=== PATIENT | female | born 1960 | race Native Hawaiian/Other Pacific Islander ===

== ENCOUNTER → 2020-09-01 07:49 | Outpatient (BNVA) | payer OTHER, SELFPAY | PROVIDERS: PCP Internal Medicine; Referring Provider Internal Medicine; Visit Provider Advanced Practice Midwife | DX: Z76.89 Persons encountering health services in other specified circumstances (principal) ==

== ENCOUNTER 2020-11-04 09:02 | Outpatient (REF) | payer OTHER, SELFPAY ==
[2020-11-04 09:59] LABS: MANUAL DIFF FLAG NO
[2020-11-04 10:05] LABS: Basophils Percent Auto 0.4 % (0-2); Eosinophils Absolute Auto 0.1 X10*3/uL (0.0-0.4); Eosinophils Percent Auto 1.8 % (0-4); Hematocrit 43.1 % (37-47); Hemoglobin 14.1 g/dl (12.0-16.0); Imm Gran Abs Auto 0.02 X10*3/uL (0.00-0.03); Imm Gran Pct Auto 0.3 % (0.0-0.4); Lymphocytes Percent Auto 27.7 % (20-40); Mean Corpuscular HGB Conc 32.7 g/dl (31.0-35.0); Mean Corpuscular Hemoglobin 30.3 pg (27.0-33.0); Mean Corpuscular Volume 92.5 fL (80-98); Mean Platelet Volume 9.8 fL (9.4-12.3); Monocytes Absolute Auto 0.6 X10*3/uL (0.1-1.2); Monocytes Percent Auto 8.2 % (2-11); Neutrophils Absolute Auto 4.4 X10*3/uL (2.0-8.3); Neutrophils Percent Auto 61.6 % (45-73); Platelet Count 287 X10*3/uL (160-400); Red Blood Count 4.66 X10*6/uL (4.20-5.50); Red Cell Distribution Width 13.1 % (11.0-16.0); White Blood Count 7.1 X10*3/uL (4.8-10.8)
[2020-11-04 10:30] LABS: Alanine Aminotransferase 16 U/L (0-31); Albumin Level 4.2 g/dL (3.5-5.0); Alkaline Phosphatase 97 U/L (39-117); Anion Gap 12 (12-20); Aspartate Amino Transferase 22 U/L (5-31); Bilirubin Total 0.4 mg/dL (0.0-1.0); Blood Urea Nitrogen 16 mg/dL (9-16); C Reactive Protein 0.93 mg/dL (< or = 0.50); Calcium 9.6 mg/dL (8.4-10.2); Carbon Dioxide 30 mmol/L (22-29); Chloride 102 mmol/L (96-108); Estimated Glomerular Filt Rate > 60; Glucose Random 92 mg/dL (60-115); Potassium 4.3 mmol/l (3.3-5.1); Sodium 140 mmol/L (135-145); Total Protein 7.6 g/dL (6.5-8.0)
== END 2020-11-04 09:03 | disposition home or self-care (01) ==
LOC: HO.LAB 09:02
PROVIDERS: PCP Internal Medicine; Visit Provider Student in an Organized Health Care Education/Training Program
DX: M06.09 Rheumatoid arthritis without rheumatoid factor, multiple sites (principal)
CPT/HCPCS: 36415; 80053; 85025; 86140

== ENCOUNTER 2020-11-12 08:27 | Outpatient (REF) | payer OTHER, SELFPAY ==
--- NOTE | 2020-11-12 08:34 | XR_ITS ---
EXAMINATION: XR KNEE, LEFT CLINICAL INFORMATION: Left knee pain COMPARISON: None TECHNIQUE: Four views of the left knee. FINDINGS: There is no evidence of acute fracture or dislocation of the left knee. No left knee effusion is seen. Medial and lateral joint spaces are maintained. There is some mild spurring about the patellofemoral joint with some narrowing of the lateral facet space. XR/XR knee LT 2V IMPRESSION: Degenerative change lateral patellofemoral joint. No acute fracture or effusion.
[2020-11-12 10:50] LABS: Cholesterol 235 mg/dL; HDL Cholesterol 55 mg/dL; LDL Cholesterol Calculated 154 mg/dl; Triglycerides 133 mg/dL
== END 2020-11-12 08:28 | disposition home or self-care (01) ==
LOC: HO.LAB 08:27
PROVIDERS: PCP Internal Medicine; Visit Provider Internal Medicine
DX: M25.562 Pain in left knee (principal); E78.00 Pure hypercholesterolemia, unspecified
CPT/HCPCS: 73560; 80061

== ENCOUNTER 2020-11-19 11:24 | Outpatient (REF) | payer OTHER, SELFPAY | END 2020-11-19 11:25 | disposition home or self-care (01) | LOC: HO.LAB 11:24 | PROVIDERS: PCP Internal Medicine; Visit Provider Internal Medicine | DX: Z20.828 Contact with and (suspected) exposure to other viral communicable diseases (principal) | CPT/HCPCS: C9803; U0003 ==

== ENCOUNTER 2020-12-07 15:19 | Emergency (ER) | payer OTHER, SELFPAY ==
--- NOTE | 2020-12-07 | XR_ITS ---
EXAMINATION: XR CHEST CLINICAL INFORMATION: Chest pain COMPARISON: 03/14/2018 TECHNIQUE: 2 views of the chest were obtained. FINDINGS: The lungs are well expanded. There is no focal consolidation, edema, or effusion. No pneumothorax. The cardiomediastinal silhouette is within normal limits. No acute osseous abnormality. XR/XR chest 2V IMPRESSION: No acute pulmonary finding.
--- NOTE | 2020-12-07 | ECG_ITS ---
Test Reason : CHEST PAIN Blood Pressure : / mmHG Vent. Rate : 084 BPM Atrial Rate : 084 BPM P-R Int : 136 ms QRS Dur : 082 ms QT Int : 354 ms P-R-T Axes : 042 007 -21 degrees QTc Int : 418 ms Normal sinus rhythm Inferior infarct (cited on or before 14-MAR-2018) Abnormal ECG When compared with ECG of 14-MAR-2018 10:46, Nonspecific T wave abnormality now evident in Anterolateral leads Referred By: Generic ED Physician Electronically Signed By:Pelon Gutierrez
[2020-12-07 15:34] VITALS: BP 140/69; PULSE 85; RESP 16; TEMP 36.7; O2SAT 100; BMI 30.2
[2020-12-07 21:50] VITALS: BP 139/72; PULSE 75; RESP 16; TEMP 36.9; O2SAT 100
--- NOTE | 2020-12-07 21:51 | PC.NURSE ---
Pt has been ambulatory in speaking with others who are waiting. She states she has right chest pain with ndeep inspiration. She is not short of breath, oxygen saturation remained 100% while speaking and moving.
--- NOTE | 2020-12-08 00:54 | ED.CHESTPAIN ---
HPI - Chest Pain General Chief Complaint: Chest Pain Stated Complaint: chest pain Time Seen by Provider: 12/08/20 00:40 Source: patient Mode of arrival: ambulatory Limitations: no limitations History of Present Illness HPI narrative: 60-year-old female presented with right side chest pain started 4 days ago, patient stated that the pain has been constant for 4 days, no radiation, described the pain as pleuritic pain with deep breath, worsened by deep breath only, nothing relieves the pain. Describes pain as moderate 5/10. No recent travel, no lower extremity swelling or tenderness, no history of DVT or PE. Related Data Home Medications Medication Instructions Recorded Confirmed adalimumab 40 mg/0.8 mL 1 mg SUBCUT Q2W 08/26/20 11/11/20 subcutaneous pen kit amitriptyline 25 mg tablet mg PO 08/26/20 11/11/20 cyclobenzaprine 10 mg tablet 10 mg PO TID 08/26/20 11/11/20 folic acid 1 mg tablet 1 mg PO DAILY 08/26/20 11/11/20 eatsmijegj-vodffermrditt-fjdkmblc cap PO 11/11/20 11/11/20 50 mg-300 mg-40 mg capsule Allergies Allergy/AdvReac Type Severity Reaction Status Date / Time naproxen [NAPROXEN] Allergy Severe STOMACH Verified 11/11/20 12:14 BLEED, bleeding, bleeding pregabalin [From LYRICA] Allergy Intermediate SHORTNESS Verified 11/11/20 12:14 OF BREATH oxycodone [From PERCOCET] Allergy Mild RASH Verified 11/11/20 12:14 Penicillins [PENICILLINS] Allergy Mild RASH Verified 11/11/20 12:14 meloxicam [MELOXICAM] Allergy Unknown RASH, hives Verified 11/11/20 12:14 prednisone [PREDNISONE] Allergy Unknown SWELLING Verified 11/11/20 12:14 Sulfa (Sulfonamide Allergy Unknown hives Verified 11/11/20 12:14 Antibiotics) trimethoprim [From BACTRIM] Allergy Unknown RASH Verified 11/11/20 12:14 Review of Systems Review of Systems: All other systems are reviewed and are negative Constitutional: Reports as per HPI and Reports no additional constitutional complaints Eyes: Reports as per HPI and Reports no additional eye complaints Reports system reviewed and no additional complaints, except as documented Cardiovascular: Reports as per HPI and Reports no additional cardiovascular complaints Respiratory: Reports as per HPI and Reports no additional respiratory complaints Gastrointestinal: Reports as per HPI and Reports no additional gastrointestinal complaints Genitourinary: Reports no additional female genitourinary complaints Musculoskeletal: Reports no additional musculoskeletal complaints Skin/Breast: Reports system reviewed and no additional complaints, except as docu Psychiatric: Reports no additional psychiatric complaints Endocrine: Reports no additional endocrine complaints Hematologic/Lymphatic: Reports no additional hematologic/lymphatic complaints Allergic/Immunologic: Reports no additional allergic/immunologic complaints Reports system reviewed and no additional complaints, except as documented and Reports Abnormal speech present [facility] Past Medical History Medical History GERD (gastroesophageal reflux disease) Hematochezia 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 Left knee pain Migraines Pure hypercholesterolemia Rheumatoid arthritis Surgical History History of total abdominal hysterectomy Family History Family History Father Hypertension CVD (cardiovascular disease) Mother Hypertension Diabetes Cancer Paternal Grandmother Cancer Brother Colon cancer Social History Social History Alcohol intake: never Smoking Status: Former smoker Use of substances other than those prescribed or required for medical reasons: No Advance Directives: No Physical Exam Vital Signs: Vital Signs: Last Vital Signs Temp 98.5 F 12/07/20 21:50 Pulse 75 12/07/20 21:50 Resp 16 12/07/20 21:50 BP 139/72 12/07/20 21:50 Pulse Ox 100 12/07/20 21:50 Body Mass Index 30.2 Vital signs have been reviewed as normal and appeared to be correct. Blood pressure on the high range. Heart rate normal. Respiration rate normal. Temperature normal. Oxygen saturation normal. Appearance: Alert. Oriented X3. No acute distress. Head: Normal external exam. Normocephalic. Atraumatic. No Bonilla signs noted. No raccoon eyes noted Eyes: PERRLA. EOMI. Conjunctiva and sclera normal. Eyelids normal. ENT: EAC normal. TM's Normal. Pharynx normal. Uvula midline. Moist mucous membranes. No trismus noted. No drooling noted. No muffled voice noted. Neck: Normal inspection. Neck supple. FROM. No adenopathy. Thyroid Normal. No meningeal signs. No neck mass noted. CVS: Normal heart rate and rhythm. Heart sound normal. No murmurs noted. Pulses normal throughout. Respiratory: No respiratory distress. Painless inspiration. Breath sounds normal. No wheezes/rales/rhonchi noted. Chest nontender. No accessory muscle usage noted or decreased air movement noted. Abdomen: Soft and nontender. Bowel sounds normal in all 4 quadrants. No distention noted. No organomegaly noted. No visible injury noted. Back: No CVA tenderness. Full range of motion noted. Skin: Skin warm and dry. Normal skin color. Normal skin turgor. No rashes/lesions/lacerations noted. Extremities: No lower extremity edema. Extremities exhibit normal range of motion. Extremities nontender. Neuro: Oriented X 3. No motor deficit. No sensory deficit. Reflexes normal. Course Course Course Narrative: Assessment and plan. 60-year-old female came in with 4 days of constant pleuritic chest pain on the right side, patient declined recent travel or lower extremity swelling or tenderness, D-dimer is elevated patient is pending CT of the chest to rule out PE. Case was signed out to to check the final results of the CTA and dispose the patient accordingly. MDM - Chest Pain Lab Data Result diagrams: 12/08/20 01:05 12/08/20 01:05 Labs: Lab Results 12/08/20 12/08/20 12/08/20 Range/Units 01:05 01:05 01:05 WBC 10.6 (4.8-10.8) X10*3/uL RBC 4.81 (4.20-5.50) X10*6/uL Hgb 14.4 (12.0-16.0) g/dl Hct 44.6 (37-47) % MCV 92.7 (80-98) fL MCH 29.9 (27.0-33.0) pg MCHC 32.3 (31.0-35.0) g/dl RDW 13.2 (11.0-16.0) % Plt Count 364 D (160-400) X10*3/uL MPV 9.5 (9.4-12.3) fL Immature Gran % (Auto) 0.6 H (0.0-0.4) % Neut % (Auto) 65.8 (45-73) % Lymph % (Auto) 26.1 (20-40) % Giles % (Auto) 6.6 (2-11) % Eos % (Auto) 0.7 (0-4) % Baso % (Auto) 0.2 (0-2) % Lymph # (Auto) 2.8 (1.2-4.9) X10*3/uL Giles # (Auto) 0.7 (0.1-1.2) X10*3/uL Eos # (Auto) 0.1 (0.0-0.4) X10*3/uL Baso # (Auto) 0.0 (0.0-0.2) X10*3/uL Abs Immat Gran (auto) 0.06 H (0.00-0.03) X10*3/uL Absolute Neuts (auto) 7.0 (2.0-8.3) X10*3/uL Absolute Nucleated RBC 0.000 (0.0-0.012) X10*3/uL Nucleated RBC % (auto) 0.0 (0.0-0.2) /100WBC D-Dimer 335 NG/ML Sodium 141 (135-145) mmol/L Potassium 3.9 (3.3-5.1) mmol/l Chloride 102 (96-108) mmol/L Carbon Dioxide 29 (22-29) mmol/L Anion Gap 14 (12-20) BUN 15 (9-16) mg/dL Creatinine 0.93 (0.5-1.4) mg/dL Estim Creat Clear Calc 60.9 Estimated GFR > 60 Random Glucose 124 H (60-115) mg/dL Calcium 9.5 (8.4-10.2) mg/dL Total Bilirubin 0.5 (0.0-1.0) mg/dL Direct Bilirubin 0.2 (0.0-0.5) mg/dL AST 21 (5-31) U/L ALT 14 (0-31) U/L Alkaline Phosphatase 110 (39-117) U/L Total Protein 8.2 H (6.5-8.0) g/dL Albumin 4.4 (3.5-5.0) g/dL Lipase 12 (8-78) U/L ECG Data ECG #1: Interpretation: Normal sinus rhythm at 84 beats per minutes, Q-wave in leadIII,aVF, nonspecific T-wave inversion and flattening in V3 throughout V6. No change from previous EKG 2018. Discharge Plan Discharge Prescriptions: No Action amitriptyline 25 mg tablet PO RF: 0 cyclobenzaprine 10 mg tablet 10 mg PO TID RF: 0 folic acid 1 mg tablet 1 mg PO DAILY RF: 0 Humira Pen 40 mg/0.8 mL pen injector kit 1 mg subcut Q2W RF: 0 tmzpjmpmzd-khxsooryluxrk-sxvt 50-300-40 mg capsule PO RF: 0
[2020-12-08 01:12] LABS: Basophils Percent Auto 0.2 % (0-2); Eosinophils Absolute Auto 0.1 X10*3/uL (0.0-0.4); Eosinophils Percent Auto 0.7 % (0-4); Hematocrit 44.6 % (37-47); Hemoglobin 14.4 g/dl (12.0-16.0); Imm Gran Abs Auto 0.06 X10*3/uL (0.00-0.03); Imm Gran Pct Auto 0.6 % (0.0-0.4); Lymphocytes Absolute Auto 2.8 X10*3/uL (1.2-4.9); Lymphocytes Percent Auto 26.1 % (20-40); MANUAL DIFF FLAG NO; Mean Corpuscular HGB Conc 32.3 g/dl (31.0-35.0); Mean Corpuscular Hemoglobin 29.9 pg (27.0-33.0); Mean Corpuscular Volume 92.7 fL (80-98); Mean Platelet Volume 9.5 fL (9.4-12.3); Monocytes Absolute Auto 0.7 X10*3/uL (0.1-1.2); Monocytes Percent Auto 6.6 % (2-11); Neutrophils Percent Auto 65.8 % (45-73); Platelet Count 364 X10*3/uL (160-400); Red Blood Count 4.81 X10*6/uL (4.20-5.50); Red Cell Distribution Width 13.2 % (11.0-16.0); White Blood Count 10.6 X10*3/uL (4.8-10.8)
--- NOTE | 2020-12-08 01:19 | PC.NURSE ---
report taken from nigel antunez. no questions.
[2020-12-08 01:23] LABS: D Dimer 335 NG/ML
--- NOTE | 2020-12-08 01:28 | CT_ITS ---
EXAMINATION: CT ANGIOGRAM OF THE CHEST WITH AND WITHOUT CONTRAST (CT PULMONARY ANGIOGRAM FOR PE) CLINICAL INFORMATION: Pleuritic chest pain and elevated D-dimer COMPARISON: Radiograph 12/07/2019 TECHNIQUE: Prior to contrast administration, noncontrast localization images were obtained. Subsequently, multidetector volumetric imaging was performed from the thoracic inlet to below the diaphragms following the administration of 65 mL Omnipaque 350 intravenous contrast. No contrast reaction reported Sagittal, coronal, and MIP oblique sagittal reformatted images were obtained on the CT workstation, uploaded to PACS, and reviewed. This CT examination was performed using dose optimization techniques as appropriate, variously including the following: *Automated exposure control *Adjustment of mA and/or kV according to patient size (this includes techniques or standardized protocols for targeted exams where dose is matched to indication/reason for exam; i.e. extremities or head) *Use of iterative reconstruction technique Total exam dose-length product 244 mGy-cm FINDINGS: QUALITY OF STUDY/CONTRAST BOLUS: Satisfactory. PULMONARY ARTERIES: No central or segmental pulmonary emboli. THORACIC AORTA: No aneurysm or dissection. LUNG: No focal consolidation, nodules or masses. The central airways are patent. Minimal dependent atelectasis. PLEURA: No pleural effusion or pneumothorax. MEDIASTINUM: Normal heart size. No pericardial effusion. No hilar or mediastinal lymphadenopathy. No evidence of septal bowing or right heart strain. CHEST WALL/AXILLA: No axillary or internal mammary lymphadenopathy. OSSEOUS STRUCTURES: No acute or suspicious osseous abnormality. Mild degenerative changes in the spine. UPPER ABDOMEN: Unremarkable. No reflux of contrast into the hepatic veins to suggest elevated right heart pressures. CT/CT angio chest PE protocol IMPRESSION: No pulmonary embolism or other acute intrathoracic abnormality. VTE: negative
[2020-12-08 01:37] LABS: Alanine Aminotransferase 14 U/L (0-31); Albumin Level 4.4 g/dL (3.5-5.0); Alkaline Phosphatase 110 U/L (39-117); Anion Gap 14 (12-20); Aspartate Amino Transferase 21 U/L (5-31); Bilirubin Direct 0.2 mg/dL (0.0-0.5); Bilirubin Total 0.5 mg/dL (0.0-1.0); Blood Urea Nitrogen 15 mg/dL (9-16); Calcium 9.5 mg/dL (8.4-10.2); Carbon Dioxide 29 mmol/L (22-29); Chloride 102 mmol/L (96-108); Creatinine Clr Calc Pharmacy 60.9; Estimated Glomerular Filt Rate > 60; Glucose Random 124 mg/dL (60-115); Lipase 12 U/L (8-78); Potassium 3.9 mmol/l (3.3-5.1); Sodium 141 mmol/L (135-145); Total Protein 8.2 g/dL (6.5-8.0)
[2020-12-08 01:42] LABS: B Type Natriuretic Peptide 15 pg/mL (<100); Troponin-I High Sensitivity < 3.5 ng/L (<3.5-17.0)
[2020-12-08 01:53] LABS: Glucose Urine UA NEG (NEG); Leukocyte Esterase Urine 2+ (NEG); Nitrite Urine NEG (NEG); Specific Gravity - Urine >= 1.030 (1.005-1.025); Urine Blood 1+ (NEG); Urine Ketones NEG (NEG); Urine Protein NEG (NEG-TRACE)
[2020-12-08 01:56] LABS: Appearance Urine CLEAR; Color Urine YELLOW
[2020-12-08 02:05] LABS: COVID-19 Test Negative (Negative); IDNOW Serial# 9DD0AD1C
[2020-12-08 02:11] LABS: Bacteria Urine 1+ /LPF; Mucus Urine 2+ /LPF; Squamous Epithelial Cell Urine 1+ /LPF
[2020-12-08] MEDS: iohexoL 350 MG/ML 100 ML INFUS..BTL 65 ML IV (02:30)
== END 2020-12-08 03:51 | disposition home or self-care (01) ==
PROVIDERS: Emergency Medicine; Emergency Provider Emergency Medicine Emergency Medical Services; PCP Internal Medicine
DX: R09.1 Pleurisy (principal); Z20.828 Contact with and (suspected) exposure to other viral communicable diseases
CPT/HCPCS: 36415; 71046; 71275; 80048; 80076; 81001; 83690; 83880; 84484; 85025; 85379; 87086; 87147; 87635; 93005; 99284; Q9967

== ENCOUNTER 2020-12-15 10:26 | Outpatient (REF) | payer OTHER, SELFPAY | END 2020-12-15 10:27 | disposition home or self-care (01) | LOC: HO.LAB 10:26 | PROVIDERS: Visit Provider Nurse Practitioner Family | DX: R19.7 Diarrhea, unspecified (principal); Z20.822 Contact with and (suspected) exposure to COVID-19 | CPT/HCPCS: 36415; U0003 ==

== ENCOUNTER 2021-02-24 09:32 | Outpatient (REF) | payer OTHER, SELFPAY ==
[2021-02-24 10:22] LABS: MANUAL DIFF FLAG NO
[2021-02-24 10:37] LABS: Basophils Percent Auto 0.4 % (0-2); Eosinophils Absolute Auto 0.1 X10*3/uL (0.0-0.4); Eosinophils Percent Auto 1.1 % (0-4); Hemoglobin 13.3 g/dl (12.0-16.0); Imm Gran Abs Auto 0.03 X10*3/uL (0.00-0.03); Imm Gran Pct Auto 0.4 % (0.0-0.4); Lymphocytes Absolute Auto 1.4 X10*3/uL (1.2-4.9); Mean Corpuscular HGB Conc 31.7 g/dl (31.0-35.0); Mean Corpuscular Hemoglobin 29.5 pg (27.0-33.0); Mean Corpuscular Volume 93.1 fL (80-98); Mean Platelet Volume 10.3 fL (9.4-12.3); Monocytes Absolute Auto 0.5 X10*3/uL (0.1-1.2); Monocytes Percent Auto 6.7 % (2-11); Neutrophils Absolute Auto 5.4 X10*3/uL (2.0-8.3); Neutrophils Percent Auto 72.4 % (45-73); Platelet Count 365 X10*3/uL (160-400); Red Blood Count 4.51 X10*6/uL (4.20-5.50); Red Cell Distribution Width 13.5 % (11.0-16.0); White Blood Count 7.5 X10*3/uL (4.8-10.8)
[2021-02-24 11:19] LABS: Alanine Aminotransferase 13 U/L (0-31); Alkaline Phosphatase 93 U/L (39-117); Anion Gap 15 (12-20); Aspartate Amino Transferase 19 U/L (5-31); Bilirubin Total 0.4 mg/dL (0.0-1.0); Blood Urea Nitrogen 13 mg/dL (9-16); C Reactive Protein 0.85 mg/dL (< or = 0.50); Calcium 9.3 mg/dL (8.4-10.2); Carbon Dioxide 28 mmol/L (22-29); Chloride 102 mmol/L (96-108); Estimated Glomerular Filt Rate > 60; Glucose Random 93 mg/dL (60-115); Potassium 4.3 mmol/L (3.3-5.1); Sodium 141 mmol/L (135-145); Total Protein 7.4 g/dL (6.5-8.0)
== END 2021-02-24 09:33 | disposition home or self-care (01) ==
LOC: HO.LAB 09:32
PROVIDERS: PCP Internal Medicine; Visit Provider Student in an Organized Health Care Education/Training Program
DX: M06.9 Rheumatoid arthritis, unspecified (principal)
CPT/HCPCS: 36415; 80053; 85025; 86140

== ENCOUNTER → 2021-03-12 11:49 | Outpatient (BNVA) | payer OTHER, SELFPAY | PROVIDERS: PCP Internal Medicine; Referring Provider Internal Medicine; Visit Provider Student in an Organized Health Care Education/Training Program | DX: M06.9 Rheumatoid arthritis, unspecified (principal) | CPT/HCPCS: 99212 ==

== ENCOUNTER 2021-06-03 08:49 | Outpatient (REF) | payer OTHER, SELFPAY ==
--- NOTE | ~2021-06-03 | XR_ITS ---
EXAMINATION: XR THORACIC AND LUMBAR SPINE CLINICAL INFORMATION: Rheumatoid arthritis. COMPARISON: 10/15/2016 TECHNIQUE: 3-view thoracic spine and 3-view lumbar spine FINDINGS: There is no evidence of acute fracture of the thoracic spine. Pedicles appear intact. Disc spaces are maintained. No abnormal paraspinal line bulge. There are 5 aov-epq-cywdchn lumbar vertebrae. No acute fracture, spondylolisthesis, spondylolysis identified. Disc spaces are maintained. Pedicles intact. Sacroiliac joints unremarkable. XR/XR thoracic spine 2V IMPRESSION: No significant thoracic or lumbar spine abnormality appreciated.
--- NOTE | ~2021-06-03 | XR_ITS ---
EXAMINATION: XR THORACIC AND LUMBAR SPINE CLINICAL INFORMATION: Rheumatoid arthritis. COMPARISON: 10/15/2016 TECHNIQUE: 3-view thoracic spine and 3-view lumbar spine FINDINGS: There is no evidence of acute fracture of the thoracic spine. Pedicles appear intact. Disc spaces are maintained. No abnormal paraspinal line bulge. There are 5 npw-dxd-vyvevtw lumbar vertebrae. No acute fracture, spondylolisthesis, spondylolysis identified. Disc spaces are maintained. Pedicles intact. Sacroiliac joints unremarkable. XR/XR lumbar spine 2-3V IMPRESSION: No significant thoracic or lumbar spine abnormality appreciated.
[2021-06-03 09:39] LABS: MANUAL DIFF FLAG NO
[2021-06-03 09:53] LABS: Basophils Percent Auto 0.3 % (0-2); Eosinophils Absolute Auto 0.1 X10*3/uL (0.0-0.4); Eosinophils Percent Auto 1.2 % (0-4); Hematocrit 41.2 % (37-47); Hemoglobin 13.1 g/dl (12.0-16.0); Imm Gran Abs Auto 0.02 X10*3/uL (0.00-0.03); Imm Gran Pct Auto 0.3 % (0.0-0.4); Lymphocytes Absolute Auto 1.8 X10*3/uL (1.2-4.9); Lymphocytes Percent Auto 26.1 % (20-40); Mean Corpuscular HGB Conc 31.8 g/dl (31.0-35.0); Mean Corpuscular Hemoglobin 29.3 pg (27.0-33.0); Mean Corpuscular Volume 92.2 fL (80-98); Mean Platelet Volume 9.9 fL (9.4-12.3); Monocytes Absolute Auto 0.5 X10*3/uL (0.1-1.2); Neutrophils Absolute Auto 4.3 X10*3/uL (2.0-8.3); Neutrophils Percent Auto 64.1 % (45-73); Platelet Count 332 X10*3/uL (160-400); Red Blood Count 4.47 X10*6/uL (4.20-5.50); Red Cell Distribution Width 13.1 % (11.0-16.0); White Blood Count 6.7 X10*3/uL (4.8-10.8)
[2021-06-03 10:10] LABS: Alanine Aminotransferase 10 U/L (0-31); Albumin Level 4.1 g/dL (3.5-5.0); Alkaline Phosphatase 95 U/L (39-117); Anion Gap 12 (12-20); Aspartate Amino Transferase 20 U/L (5-31); Bilirubin Total 0.4 mg/dL (0.0-1.0); Blood Urea Nitrogen 13 mg/dL (9-16); C Reactive Protein 0.93 mg/dL (< or = 0.50); Calcium 9.8 mg/dL (8.4-10.2); Carbon Dioxide 29 mmol/L (22-29); Chloride 103 mmol/L (96-108); Estimated Glomerular Filt Rate > 60; Glucose Random 97 mg/dL (60-115); Potassium 4.3 mmol/L (3.3-5.1); Sodium 140 mmol/L (135-145); Total Protein 7.6 g/dL (6.5-8.0)
[2021-06-03 10:33] LABS: Erythrocyte Sedimentation Rate 33 MM/HR (0-20)
== END 2021-06-03 08:50 | disposition home or self-care (01) ==
LOC: HO.LAB 08:49
PROVIDERS: PCP Internal Medicine; Visit Provider Student in an Organized Health Care Education/Training Program
DX: M06.9 Rheumatoid arthritis, unspecified (principal)
CPT/HCPCS: 36415; 72070; 72100; 80053; 85025; 85652; 86140

== ENCOUNTER → 2021-06-10 14:17 | Outpatient (BNVA) | payer OTHER, SELFPAY | PROVIDERS: PCP Internal Medicine; Visit Provider Student in an Organized Health Care Education/Training Program | DX: M06.9 Rheumatoid arthritis, unspecified (principal) | CPT/HCPCS: 99212 ==

== ENCOUNTER → 2021-06-24 11:36 | Outpatient (REF) | payer OTHER, SELFPAY ==
--- NOTE | 2021-06-24 12:03 | ECG_ITS ---
Test Reason : CP Blood Pressure : / mmHG Vent. Rate : 059 BPM Atrial Rate : 059 BPM P-R Int : 132 ms QRS Dur : 080 ms QT Int : 440 ms P-R-T Axes : 030 023 014 degrees QTc Int : 435 ms Sinus bradycardia Otherwise normal ECG When compared with ECG of 07-DEC-2020 15:35, T wave inversion less evident in Inferior leads Nonspecific T wave abnormality no longer evident in Anterolateral leads Referred By: Paz Walters Electronically Signed By:MORENITA GRECO
== END ==
LOC: HO.CARD 11:36
PROVIDERS: PCP Internal Medicine; Visit Provider Internal Medicine
DX: R07.9 Chest pain, unspecified (principal)
CPT/HCPCS: 93005

== ENCOUNTER → 2021-06-26 10:03 | Outpatient (BNVA) | payer OTHER, SELFPAY | PROVIDERS: PCP Internal Medicine | DX: N39.0 Urinary tract infection, site not specified (principal) | CPT/HCPCS: 99212 ==

== ENCOUNTER → 2021-08-11 13:21 | Outpatient (BNVA) | payer OTHER, SELFPAY | PROVIDERS: PCP Internal Medicine; Visit Provider Internal Medicine | DX: R07.2 Precordial pain (principal) | CPT/HCPCS: 99202 ==

== ENCOUNTER 2021-08-24 09:42 | Emergency (ER) | payer OTHER, SELFPAY ==
[2021-08-24 10:01] VITALS: BP 118/63; PULSE 74; RESP 20; TEMP 36.7; O2SAT 99; BMI 28.5
--- NOTE | 2021-08-24 10:12 | ED_ITS ---
HPI - Allergic Reaction General Chief complaint: Allergic Reaction Stated complaint: BEE STING Time Seen by Provider: 08/24/21 10:12 Source: patient Mode of arrival: ambulatory Limitations: no limitations History of Present Illness HPI narrative: [age] year female who was stung by a bee at 9:10 a.m. this morning and received an EpiPen injection by her son presents for evaluation Patient got EpiPen at 9:20 a.m.. Patient herself did not notice a sting, but felt a burning on her chest and there were B's in the area. States that she felt short of breath prior to the EpiPen. States that right now her throat feels tingly, and she has a headache. She is not short of breath now, no chest pain, no abdominal pain, no vomiting or nausea. Patient's headache started after the epi pen, and is a 9/10. MD complaint: allergic reaction Onset (ago): hour(s) (1) Exposure: insect bite Known history of allergy to: bees Severity: mild Treatment prior to arrival: epinephrine Previous Allergic Reaction History: anaphylaxis Related Data Home Medications Medication Instructions Recorded Confirmed amitriptyline 25 mg tablet mg PO 08/26/20 08/11/21 cyclobenzaprine 10 mg tablet 10 mg PO TID 08/26/20 08/11/21 miscellaneous medical supply 1 ea MISCELLANEOUS ea 12/12/20 08/11/21 dicyclomine 10 mg capsule 10 mg PO BID PRN 06/24/21 08/11/21 Previous Rx's Medication Instructions Recorded estradiol (Estrace) See Rx Instructions .ROUTE 3XW 30 06/26/21 Days #42.5 g adalimumab 40 mg/0.8 mL 40 mg SUBCUT Q2W #2 ea 07/29/21 subcutaneous pen kit (Humira Pen) smcmvssqjf-luwazxxcazvzs-rnwjpkif 1 cap PO .once a day 30 Days #30 08/07/21 50 mg-300 mg-40 mg capsule cap epinephrine 0.3 mg/0.3 mL 0.3 mg IM Q10M PRN #2 ea 08/24/21 injection, auto-injector famotidine 40 mg tablet (Pepcid) 40 mg PO BEDTIME 7 Days #7 tab 08/24/21 Allergies Allergy/AdvReac Type Severity Reaction Status Date / Time naproxen [NAPROXEN] Allergy Severe STOMACH Verified 08/24/21 10:04 BLEED, bleeding, bleeding meloxicam [MELOXICAM] Allergy Intermediate RASH, hives Verified 08/24/21 10:04 prednisone [PREDNISONE] Allergy Intermediate SWELLING Verified 08/24/21 10:04 pregabalin [From LYRICA] Allergy Intermediate SHORTNESS Verified 08/24/21 10:04 OF BREATH Sulfa (Sulfonamide Allergy Intermediate hives Verified 08/24/21 10:04 Antibiotics) trimethoprim [From BACTRIM] Allergy Intermediate RASH Verified 08/24/21 10:04 oxycodone [From PERCOCET] Allergy Mild RASH Verified 08/24/21 10:04 Penicillins [PENICILLINS] Allergy Mild RASH Verified 08/24/21 10:04 Review of Systems Constitutional: Constitutional: Denies body ache(s), Denies chills, Denies fatigue, Denies fever(s), Denies headache(s), Denies malaise and Denies weakness Eyes: Eyes: Denies diplopia ENT: Denies vertigo, Denies dizziness, Denies otalgia, Denies headache(s), Denies hoarseness, Denies lip swelling, Denies mouth pain, Denies post nasal drip, Denies sinus pain, Denies sinus pressure, Denies sore throat, Denies throat swelling and Denies tongue swelling Comments: Throat feels tingly Cardiovascular: Cardiovascular: Denies chest pain, Denies syncope, Denies leg edema, Denies lightheadedness, Denies Loss of Consciousness, Denies palpitations and Denies dyspnea Respiratory: Respiratory: Denies chest congestion, Denies cough and Denies dyspnea Gastrointestinal: Gastrointestinal: Denies abdominal pain, Denies hematochezia, Denies constipation, Denies diarrhea and Denies vomiting Musculoskeletal: Musculoskeletal: Reports no additional musculoskeletal complaints Neurologic: Denies confusion, Denies vertigo, Denies dizziness, Denies syncope, Denies headache(s) and Denies weakness Psychiatric: Psychiatric: Denies anxiety, Denies confusion and Denies depression Endocrine: Endocrine: Denies fatigue and Denies palpitations Allergic/Immunologic: Allergic/Immunologic: Denies lip swelling, Denies throat swelling and Denies tongue swelling PMFSH Past Medical History Medical History Chest pain Chronic lower urinary tract infection GERD (gastroesophageal reflux disease) Hematochezia 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 Infectious diarrhea Left knee pain Migraines Pure hypercholesterolemia Renal cyst, acquired, left Rheumatoid arthritis Surgical History History of total abdominal hysterectomy Hx of hysterectomy Family History Family History Father Hypertension CVD (cardiovascular disease) Mother Hypertension Diabetes Cancer Paternal Grandmother Cancer Brother Colon cancer Social History Social History Housing: Apartment Alcohol intake: never Patient Tobacco Use Status: Never used Tobacco e-Cigarette/Vaping Use: Never Used Second Hand Smoke Exposure: No Advance Directives: No Advance Directives Information Provided: No Patient : No service: No Current occupational status: unemployed Physical Exam Vital Signs: Vital Signs: Last Vital Signs Temp 98.0 F 08/24/21 10:01 Pulse 53 08/24/21 11:30 Resp 18 08/24/21 11:30 BP 105/55 L 08/24/21 11:30 Pulse Ox 98 08/24/21 11:30 Body Mass Index 28.5 Const: General: No confusion Nutritional Appearance: well nourished Orientation/consciousness: No confusion Limitations: no limitations HENMT: Head: Yes normal to inspection, Yes normocephalic and Yes atraumatic Ears: hearing grossly normal bilaterally, external ears normal, TM's normal bilaterally and EAC's normal General nose exam: Normal external nose present Face and sinus: Yes normal facial exam and Yes sinuses nontender Mouth: Normal oral and palatal mucosa present Throat: Yes posterior oropharynx normal Eyes: Conjunctivae: conjunctivae normal Pupils: Equal, round and reactive pupils present EOM: EOMs intact bilaterally Neck: Neck: Yes full ROM, Yes no lymphadenopathy and Yes supple Resp: Effort & Inspection: normal respiratory effort and able to speak in complete sentences Auscultation: clear to auscultation bilaterally, no crackles, no rales, no rhonchi and no wheezes Cardio: Rate: regular rate Rhythm: regular rhythm Heart sounds: S1 normal heart sound present and S2 normal heart sound present GI: Inspection: Yes normal to inspection Palpation (GI): Soft to palpation, nontender, no guarding and not rigid Percussion: Yes normal to percussion Auscultation: normal bowel sounds Skin: General skin exam: no rashes or lesions noted Neuro: General: No confusion Cranial nerves: Yes Equal, round and reactive pupils present Extrem: General: Yes normal to inspection and Yes full ROM Psych: Appearance: grossly normal Affect: normal affect Attitude: cooperative Thought process: Normal thought process present Course Course Course Narrative: 6-year-old female with anaphylaxis to bee stings was done over an hour ago and received epinephrine injection over an hour ago, presents for evaluation. Patient only symptom is a tingling in her throat. Patient's blood pressure is normal 118/63, she is satting 100% on room air, heart rate 70. Patient has no angioedema, no eye swelling, no lip swelling, no tongue swelling, airway is patent, lungs clear to auscultation bilaterally. Belly soft nontender. Patient is well-appearing, although she is anxious. Reevaluation(s) Reevaluation #1: 2-1/2 hours after initial bee sting patient is feeling much better. Her headache has resolved, she does not feel lightheaded or dizzy, she does not feel this throat tingling anymore. Will send home with Pepcid and Benadryl, represcribed epi pens, patient is allergic and reports anaphylaxis to prednisone. Gave return precautions, advised follow-up with primary care provider Discharge Plan Discharge Clinical Impression: Allergic reaction Qualifiers: Encounter type: initial encounter Qualified Code(s): T78.40XA - Allergy, unspecified, initial encounter Patient Disposition: Home, Self-Care Instructions: Anaphylaxis (ED) Additional Instructions: Please slate picker the paved pens I prescribed for you, please take Pepcid for the next week at bedtime, please take Benadryl as needed for itching. If you become lightheaded, have vomiting or nausea, trouble breathing, lip swelling, throat closing, tongue swelling, shortness of breath, please return to be seen in the emergency room Please call your primary care provider to tell them happened today and that you were seen in the emergency room Prescriptions: New epinephrine 0.3 mg/0.3 mL auto-injector 0.3 mg IM Q10M PRN (Reason: anaphylaxis) Qty: 2 RF: 0 famotidine [Pepcid] 40 mg tablet 40 mg PO BEDTIME 7 Days Qty: 7 RF: 0 No Action miscellaneous medical supply Misc 1 ea miscellaneous RF: 0 Humira Pen 40 mg/0.8 mL pen injector kit 40 mg subcut Q2W Qty: 2 RF: 3 rhdzrpyoly-eduseiogsclzq-edgu 50-300-40 mg capsule 1 cap PO .once a day 30 Days Qty: 30 RF: 0 dicyclomine 10 mg capsule 10 mg PO BID PRNRF: 0 amitriptyline 25 mg tablet PO RF: 0 cyclobenzaprine 10 mg tablet 10 mg PO TID RF: 0 estradiol [Estrace] 0.01 % (0.1 mg/gram) cream See Rx Instructions .ROUTE 3XW 30 Days Qty: 42.5 RF: 3 Stand Alone Forms: Work/School Release
[2021-08-24] MEDS: Acetaminophen 325 MG TABLET 975 MG PO (10:33)
[2021-08-24 11:14] VITALS: RESP 18
[2021-08-24 11:30] VITALS: BP 105/55; PULSE 53; RESP 18; O2SAT 98
== END 2021-08-24 11:58 | disposition home or self-care (01) ==
PROVIDERS: Emergency Provider Emergency Medicine; PCP Internal Medicine
DX: T63.441A Toxic effect of venom of bees, accidental (unintentional), initial encounter (principal); R07.0 Pain in throat; Y92.9 Unspecified place or not applicable; X58.XXXA Exposure to other specified factors, initial encounter
CPT/HCPCS: 99283; 99284

== ENCOUNTER 2021-09-02 09:00 | Outpatient (RCR) | payer OTHER, SELFPAY ==
--- NOTE | 2021-08-28 10:51 | MHC.PT.EP ---
[facility] [place] Office [place] Office [place] Office [address] Kelly Day [address] [phone] F: [phone] F: [phone] F: [phone] F: [phone] Physical Therapy Plan of Care Date of Evaluation: Date of Surgery: N/A Diagnosis: rheumatoid arthritis/back pain Assessment: pt is self-limiting in nature and her pain may have a psychosocial component as she is very active. She was constantly answering around the questions asked of her and was frequently using her hands to compensate for LE movement. pt stated she has tried PT in the past and felt it has made her worse. She is I w/ an HEP from previous PT and states she does it everyday. pt presents to physical therapy with pain, decreased range of motion, decreased strength, impaired functional mobility, impaired postural awareness, and gait deviations. pt is a fair candidate for skilled PT due to age, potential remediation of impairments, typical disease/condition progression and prognosis, comorbidities, and motivation. pt would benefit from tailored strengthening and stretching exercise program, functional training, gait training, postural re-training, neuromuscular re-education, modalities as needed for pain, equipment safety demonstration. Frequency and Duration: The patient will be seen 2x/wk for 4 wks Short Term Goals: pt will be I w/ HEP to promote self-management of condition. pt will improve B hip flexion by 1 MMT grade to promote ease in lifting legs into bed. Assisted Goals: pt will report <6/10 low back pain for standing >15 min to promote ease in doing dishes or meal prep. pt will demo log roll technique for sit<>supine transfer to reduce stress on spine w/ transfers. Treatment Plan: Modalities to reduce pain, spasms and effusion. Manual therapy to restore motion and function. Therapeutic exercise to improve strength and flexibility. Neuromuscular re-education for posture and balance. Therapeutic activities to return to functional activities of daily living. Electronically signed by: Hayde Hicks PT, DPT Please sign and return to therapist. Thank you for your referral.
--- NOTE | 2021-09-14 10:17 | MHC.PT.DC ---
[facility] [place] Office [place] Office [place] Office [address] Kelly Day [address] [phone] F: [phone] F: [phone] F: [phone] F: [phone] Physical Therapy Discharge Report Diagnosis: rheumatoid arthritis/back pain Date of Surgery: N/A Date of Evaluation: 08/28/21 Date of Discharge: 09/14/21 Treatments to Date: 3 Cancellations to Date: 1 No Shows to Date: 0 Discharge Status: Recommend MD Follow-up Discharge Summary: Per last therapist's treatment note: Pt is self-limiting throughout session and had fair exercise tolerance for mat exercises this date. Pt requires constants cues and instruction for exercises to perform with proper technique. Throughout exercises she says I do this at home and after about ~15-20 reps she will say I don't want to do this one anymore without reasoning with most mat exercise provided and despite education regarding benefits of the exercise. She had improved tolerance for standing exercises this date and completed all reps. She continues to report she performs her previous HEP daily at home. The patient came in this morning and stated after her last session she was unable to walk or get out of bed for a day. She has a home exercise program with which she is independent and feels is beneficial for her. She stated at the initial evaluation she feels physical therapy always makes her feel worse but she wanted to try again this time. She continues to report feeling worse with physical therapy intervention. She is discharged from this physical therapy plan of care. Electronically signed by: Hayde Hicks PT, DPT Please sign and return to therapist. Thank you for your referral.
== END 2021-09-14 10:17 | disposition home or self-care (01) ==
LOC: HO.PT 09:00
PROVIDERS: PCP Internal Medicine; Visit Provider Student in an Organized Health Care Education/Training Program
DX: M06.9 Rheumatoid arthritis, unspecified (principal)
CPT/HCPCS: 97110; 97162

== ENCOUNTER 2021-09-09 08:23 | Outpatient (REF) | payer OTHER, SELFPAY ==
[2021-09-09 08:50] LABS: MANUAL DIFF FLAG NO
[2021-09-09 09:19] LABS: Basophils Percent Auto 0.3 % (0-2); Eosinophils Absolute Auto 0.1 X10*3/uL (0.0-0.4); Eosinophils Percent Auto 1.3 % (0-4); Hematocrit 41.9 % (37-47); Hemoglobin 13.7 g/dl (12.0-16.0); Imm Gran Abs Auto 0.03 X10*3/uL (0.00-0.03); Imm Gran Pct Auto 0.4 % (0.0-0.4); Lymphocytes Absolute Auto 1.8 X10*3/uL (1.2-4.9); Lymphocytes Percent Auto 26.4 % (20-40); Mean Corpuscular HGB Conc 32.7 g/dl (31.0-35.0); Mean Corpuscular Volume 91.9 fL (80-98); Mean Platelet Volume 10.2 fL (9.4-12.3); Monocytes Absolute Auto 0.5 X10*3/uL (0.1-1.2); Monocytes Percent Auto 7.5 % (2-11); Neutrophils Absolute Auto 4.4 X10*3/uL (2.0-8.3); Neutrophils Percent Auto 64.1 % (45-73); Platelet Count 298 X10*3/uL (160-400); Red Blood Count 4.56 X10*6/uL (4.20-5.50); Red Cell Distribution Width 13.2 % (11.0-16.0); White Blood Count 6.8 X10*3/uL (4.8-10.8)
[2021-09-09 09:48] LABS: Alanine Aminotransferase 9 U/L (0-31); Albumin Level 4.1 g/dL (3.5-5.0); Alkaline Phosphatase 89 U/L (39-117); Anion Gap 11 (12-20); Aspartate Amino Transferase 16 U/L (5-31); Bilirubin Total 0.4 mg/dL (0.0-1.0); Blood Urea Nitrogen 15 mg/dL (9-16); C Reactive Protein 0.44 mg/dL (< or = 0.50); Calcium 9.7 mg/dL (8.4-10.2); Carbon Dioxide 30 mmol/L (22-29); Chloride 102 mmol/L (96-108); Cholesterol 210 mg/dL; Estimated Glomerular Filt Rate > 60; Glucose Random 86 mg/dL (60-115); HDL Cholesterol 52 mg/dL; LDL Cholesterol Calculated 136 mg/dl; Potassium 4.1 mmol/L (3.3-5.1); Sodium 139 mmol/L (135-145); Total Protein 7.5 g/dL (6.5-8.0); Triglycerides 113 mg/dL
[2021-09-09 10:19] LABS: Erythrocyte Sedimentation Rate 26 MM/HR (0-20)
== END 2021-09-09 08:24 | disposition home or self-care (01) ==
LOC: HO.LAB 08:23
PROVIDERS: PCP Student in an Organized Health Care Education/Training Program; Visit Provider Student in an Organized Health Care Education/Training Program
DX: M06.9 Rheumatoid arthritis, unspecified (principal); E78.5 Hyperlipidemia, unspecified
CPT/HCPCS: 36415; 80053; 80061; 85025; 85652; 86140

== ENCOUNTER → 2021-09-16 12:13 | Outpatient (BNVA) | payer OTHER, SELFPAY | PROVIDERS: PCP Internal Medicine; Visit Provider Nurse Practitioner Family | DX: M06.9 Rheumatoid arthritis, unspecified (principal) | CPT/HCPCS: 99212 ==

== ENCOUNTER → 2021-09-22 07:28 | Outpatient (REF) | payer OTHER, SELFPAY ==
--- NOTE | 2021-09-22 07:33 | CA_ITS ---
Transthoracic Echocardiogram Amended Patient (Last, First, Middle): Paz Hurley, Gender: Female Date of : 1960 Age: 60 Procedure Date: 09/22/2021 Procedure Type: Transthoracic Echocardiogram Location: OP Height: 157.48 cm Weight: 70.76 kg BSA: 1.72 m2 Heart Rate: bpm BP: 120 / 70 mmHg Creative Writing English Professor: DSGloria Referring MD: Lobo Watts MD Symptoms: R07.2 - Precordial pain Study Quality: Fair ECG Rhythm: Sinus Conclusions: - The left ventricular systolic function is normal. The visually estimated ejection fraction is between 65-70%. - There is a mobile atrial septum noted. Bubble study mildly positive during valsalva. - No obvious valvular pathology seen on this study. Findings Left Ventricle Normal left ventricular cavity size. There is mildly increased left ventricular wall thickness. The left ventricular systolic function is normal. The visually estimated ejection fraction is between 65-70%. There is no evidence of regional wall motion abnormalities. Diastolic function is normal for age. Right Ventricle Normal right ventricular cavity size and systolic function. Atria Both atria are normal in size. There is a mobile atrial septum noted. Bubble study mildly positive during valsalva. Aortic Valve There is a normal trileaflet aortic valve. There is no aortic valve stenosis. There is no aortic valve regurgitation. Mitral Valve The mitral valve appears normal. There is trace mitral valve regurgitation. There is no mitral valve stenosis. Pulmonic Valve The pulmonic valve was not well visualized. Tricuspid Valve Normal tricuspid valve structure. There is trace tricuspid valve regurgitation. The pulmonary artery systolic pressure is normal. Great Vessels The aortic annulus, sinuses of valsalva, and asc aorta are normal in size. Small plaque is seen in the sino tubular ridge. Venous The inferior vena cava is normal in size and collapses greater than 50% with inspiration. Pericardium/Pleural There is no evidence of pericardial effusion. Prior Study Comparison No prior study available for comparison. Recommendations, Care & Conclusions No obvious valvular pathology seen on this study. Measurements 2D Linear Measurements IVSd: 1.06 0.6-0.9/0.6-1.0 cm LVIDd: 3.84 3.9-5.3/4.2-5.9 cm LVIDd Index: 2.23 2.4-3.2/2.2-3.1 cm/m2 LVIDs: 2.42 2.0-3.6 cm LVPWd: 1.08 0.7-1.1 cm Ao Root: 2.80 2.1-3.5 cm LA Diam: 3.40 2.7-3.8/3.0-4.0 cm LAIDs Index: 1.98 1.5-2.3 cm/m2 LV Mass: 163.51 67-162/88-224 g LV Mass Index: 95.07 43-95/49-115 g/m2 LVOT Diam: 1.80 3.0+(-)1.3 cm 2D Volumes LA Vol: 21.70 2D Systolic Function EF 4C: 81.60 >55% EF 2C: 78.20 >55% EF BiP: 79.10 >55% Mitral Valve MV Pk E: 0.84 MV PK A: 0.81 MV Decel Time: 282.00 E/A: 1.00 E'Lateral: 11.20 E'Medial: 7.72 E/E' Med: 10.90 E/E' Lat: 7.50 PHT: 83.00 MVA PHT: 2.65 [address] [place]: 2.97 Aortic Valve AoV Pk [place]oss[place]: 1.18 AoV Mn [place]: 0.78 AoV VTI: 0.29 AoV Pk Grad: 6.00 Aov Mn Grad: 3.00 LVOT LVOT Diam: 1.80 LVOT Area: 2.54 Diastolic Function MV Pk E: 0.84 MV Pk A: 0.81 E/A: 1.00 E'Medial: 7.72 E/E' Med: 10.90 E' Laterial: 11.20 E/E' Lat: 7.50 Tricuspid Valve TR Pk Jossue: 2.18 TR Pk Grad: 19.00 RA Press: 3.00 Great Vessels Aorta Ao Root-2D: 2.80 2.0-3.7 cm Updated in Other Vendor System with Status of Final Lobo Watts MD electronically signed on 09/23/2021 9:01:47 AM with status of Final
== END ==
LOC: HO.CARD 07:28
PROVIDERS: PCP Student in an Organized Health Care Education/Training Program; Visit Provider Internal Medicine
DX: R07.2 Precordial pain (principal)
CPT/HCPCS: 93306

== ENCOUNTER 2021-10-06 11:00 | Outpatient (REF) | payer OTHER, SELFPAY ==
--- NOTE | ~2021-10-06 | US_ITS ---
EXAMINATION: US RETROPERITONEAL LIMITED (RENAL ONLY) CLINICAL INFORMATION: Cyst of kidney, acquired. COMPARISON: Renal ultrasounds, most recent 05/03/2018 TECHNIQUE: Real-time imaging of the kidneys. FINDINGS: RIGHT KIDNEY: 10.0 x 5.1 x 5.1 cm (SAG x AP x TRV). The kidney is normal in size, contour, and echogenicity. Renal cortical thickness is normal. No calculi or focal parenchymal lesions. No hydronephrosis. LEFT KIDNEY: 10.1 x 5.9 x 4.4 cm (SAG x AP x TRV). The kidney is normal in size, contour, and echogenicity. Renal cortical thickness is normal. There is a 0.7 x 0.3 x 0.5 cm simple cyst in the lower pole. This measured 6 x 5 x 6 mm on most recent exam April 2018 and does not appear appreciably changed. No imaging follow-up is indicated. No renal calculi or hydronephrosis. US/US renal BI IMPRESSION: Normal right kidney. Stable small simple cyst in the lower pole of the left kidney.
== END 2021-10-06 11:01 | disposition home or self-care (01) ==
LOC: HO.US 11:00
PROVIDERS: PCP Student in an Organized Health Care Education/Training Program
DX: N28.1 Cyst of kidney, acquired (principal)
CPT/HCPCS: 76775

== ENCOUNTER → 2021-10-15 09:32 | Outpatient (BNVA) | payer OTHER, SELFPAY | PROVIDERS: PCP Internal Medicine; Referring Provider Internal Medicine; Visit Provider Internal Medicine | DX: R07.2 Precordial pain (principal); Q21.1 Atrial septal defect | CPT/HCPCS: 99212 ==

== ENCOUNTER → 2021-10-26 09:50 | Outpatient (BNVA) | payer OTHER, SELFPAY | PROVIDERS: PCP Internal Medicine | DX: N28.1 Cyst of kidney, acquired (principal) | CPT/HCPCS: 99212 ==

== ENCOUNTER 2021-12-10 09:39 | Outpatient (REF) | payer OTHER, SELFPAY ==
[2021-12-10 10:00] LABS: MANUAL DIFF FLAG NO
[2021-12-10 10:34] LABS: Basophils Percent Auto 0.5 % (0-2); Eosinophils Absolute Auto 0.1 X10*3/uL (0.0-0.4); Eosinophils Percent Auto 1.7 % (0-4); Hematocrit 43.8 % (37.0-47.0); Hemoglobin 13.7 g/dl (12.0-16.0); Imm Gran Abs Auto 0.02 X10*3/uL (0.00-0.03); Imm Gran Pct Auto 0.3 % (0.0-0.4); Lymphocytes Absolute Auto 1.5 X10*3/uL (1.2-4.9); Lymphocytes Percent Auto 24.3 % (20-40); Mean Corpuscular HGB Conc 31.3 g/dl (31.0-35.0); Mean Corpuscular Hemoglobin 29.2 pg (27.0-33.0); Mean Corpuscular Volume 93.4 fL (80.0-98.0); Mean Platelet Volume 10.1 fL (9.4-12.3); Monocytes Absolute Auto 0.5 X10*3/uL (0.1-1.2); Monocytes Percent Auto 7.3 % (2-11); Neutrophils Absolute Auto 4.2 x10*3/uL (2.0-8.3); Neutrophils Percent Auto 65.9 % (45-73); Platelet Count 314 X10*3/uL (160-400); Red Blood Count 4.69 X10*6/uL (4.20-5.50); Red Cell Distribution Width 13.2 % (11.0-16.0); White Blood Count 6.3 X10*3/uL (4.8-10.8)
[2021-12-10 11:08] LABS: Alanine Aminotransferase 11 U/L (0-31); Albumin Level 4.1 g/dL (3.5-5.0); Alkaline Phosphatase 94 U/L (39-117); Anion Gap 10 (12-20); Aspartate Amino Transferase 17 U/L (5-31); Bilirubin Total 0.6 mg/dL (0.0-1.0); Blood Urea Nitrogen 17 mg/dL (9-16); C Reactive Protein 0.47 mg/dL (< or = 0.50); Carbon Dioxide 30 mmol/L (22-29); Chloride 104 mmol/L (96-108); Estimated Glomerular Filt Rate > 60; Glucose Random 90 mg/dL (60-115); Potassium 4.5 mmol/L (3.3-5.1); Sodium 139 mmol/L (135-145); Total Protein 7.8 g/dL (6.5-8.0)
[2021-12-10 11:22] LABS: Erythrocyte Sedimentation Rate 29 MM/HR (0-20)
== END 2021-12-10 09:40 | disposition home or self-care (01) ==
LOC: HO.LAB 09:39
PROVIDERS: PCP Internal Medicine; Visit Provider Nurse Practitioner Family
DX: M06.9 Rheumatoid arthritis, unspecified (principal)
CPT/HCPCS: 36415; 80053; 85025; 85652; 86140

== ENCOUNTER → 2022-01-06 10:02 | Outpatient (BNVA) | payer OTHER, SELFPAY | PROVIDERS: PCP Internal Medicine; Visit Provider Nurse Practitioner Family | DX: M06.9 Rheumatoid arthritis, unspecified (principal) | CPT/HCPCS: 99212 ==

== ENCOUNTER 2022-01-13 10:07 | Outpatient (REF) | payer OTHER, SELFPAY ==
--- NOTE | ~2022-01-13 | MM_ITS ---
EXAMINATION: MM SCREENING DIGITAL BREAST TOMOSYNTHESIS, BILATERAL CLINICAL INFORMATION: Screening. Asymptomatic. The lifetime risk of breast cancer based on the Tyrer-Cuzick Model is 5%. COMPARISON: Mammography: 09/04/2019, outside mammography 08/08/2017 ([facility]) TECHNIQUE: Digital breast tomosynthesis is performed in both the craniocaudal and mediolateral oblique views along with computer-aided detection (CAD). Synthesized 2D images are generated from the tomosynthesis. FINDINGS: There are scattered areas of fibroglandular density (ACR BI-RADS breast composition Category b). There are no significant masses, abnormal calcifications, or other abnormalities. Parenchymal pattern is similar to prior studies. There is no developing density or architectural abnormality. The axilla and skin contours are unremarkable. No significant changes. MM/MM tomosynthesis screening BI IMPRESSION: No mammographic evidence of malignancy. ASSESSMENT: BI-RADS 1: Negative RECOMMENDATION: Routine annual mammography screening. This patient's information was entered into a reminder system with a target due date for their next mammogram.
== END 2022-01-13 10:08 | disposition home or self-care (01) ==
LOC: HO.MAMMO 10:07
PROVIDERS: Visit Provider Nurse Practitioner Family
DX: Z12.31 Encounter for screening mammogram for malignant neoplasm of breast (principal)
CPT/HCPCS: 77063; 77067

== ENCOUNTER 2022-02-03 11:33 | Outpatient (REF) | payer OTHER, SELFPAY ==
[2022-02-03 11:54] LABS: MANUAL DIFF FLAG NO
[2022-02-03 13:15] LABS: Basophils Percent Auto 0.3 % (0-2); Eosinophils Absolute Auto 0.1 X10*3/uL (0.0-0.4); Eosinophils Percent Auto 0.6 % (0-4); Hematocrit 46.2 % (37.0-47.0); Hemoglobin 14.9 g/dl (12.0-16.0); Imm Gran Abs Auto 0.04 X10*3/uL (0.00-0.03); Imm Gran Pct Auto 0.4 % (0.0-0.4); Lymphocytes Absolute Auto 1.9 X10*3/uL (1.2-4.9); Lymphocytes Percent Auto 19.2 % (20-40); Mean Corpuscular HGB Conc 32.3 g/dl (31.0-35.0); Mean Corpuscular Hemoglobin 30.1 pg (27.0-33.0); Mean Corpuscular Volume 93.3 fL (80.0-98.0); Mean Platelet Volume 10.3 fL (9.4-12.3); Monocytes Absolute Auto 0.7 X10*3/uL (0.1-1.2); Monocytes Percent Auto 7.1 % (2-11); Neutrophils Absolute Auto 7.3 x10*3/uL (2.0-8.3); Neutrophils Percent Auto 72.4 % (45-73); Platelet Count 357 X10*3/uL (160-400); Red Blood Count 4.95 X10*6/uL (4.20-5.50); Red Cell Distribution Width 13.1 % (11.0-16.0); White Blood Count 10.1 X10*3/uL (4.8-10.8)
[2022-02-03 13:39] LABS: Alanine Aminotransferase 10 U/L (0-31); Albumin Level 4.5 g/dL (3.5-5.0); Alkaline Phosphatase 109 U/L (39-117); Anion Gap 15 (12-20); Aspartate Amino Transferase 25 U/L (5-31); Bilirubin Total 0.7 mg/dL (0.0-1.0); Blood Urea Nitrogen 22 mg/dL (9-16); C Reactive Protein 0.53 mg/dL (< or = 0.50); Calcium 10.1 mg/dL (8.4-10.2); Carbon Dioxide 29 mmol/L (22-29); Chloride 99 mmol/L (96-108); Cholesterol 269 mg/dL; Estimated Glomerular Filt Rate 58; Glucose Random 90 mg/dL (60-115); HDL Cholesterol 73 mg/dL; LDL Cholesterol Calculated 173 mg/dl; Potassium 4.8 mmol/L (3.3-5.1); Sodium 138 mmol/L (135-145); Total Protein 8.5 g/dL (6.5-8.0); Triglycerides 115 mg/dL
[2022-02-03 14:01] LABS: Erythrocyte Sedimentation Rate 34 MM/HR (0-20)
== END 2022-02-03 11:34 | disposition home or self-care (01) ==
LOC: HO.LAB 11:33
PROVIDERS: Nurse Practitioner Family; PCP Internal Medicine; Visit Provider Internal Medicine
DX: M06.9 Rheumatoid arthritis, unspecified (principal); E78.5 Hyperlipidemia, unspecified
CPT/HCPCS: 36415; 80053; 80061; 85025; 85652; 86140

== ENCOUNTER 2022-03-31 08:38 | Outpatient (REF) | payer OTHER, SELFPAY ==
[2022-03-31 08:54] LABS: MANUAL DIFF FLAG NO
[2022-03-31 09:08] LABS: Basophils Percent Auto 0.4 % (0-2); Eosinophils Absolute Auto 0.1 X10*3/uL (0.0-0.4); Eosinophils Percent Auto 1.6 % (0-4); Hematocrit 42.7 % (37.0-47.0); Imm Gran Abs Auto 0.02 X10*3/uL (0.00-0.03); Imm Gran Pct Auto 0.3 % (0.0-0.4); Lymphocytes Absolute Auto 2.1 X10*3/uL (1.2-4.9); Mean Corpuscular HGB Conc 32.8 g/dl (31.0-35.0); Mean Corpuscular Hemoglobin 30.5 pg (27.0-33.0); Mean Platelet Volume 10.1 fL (9.4-12.3); Monocytes Absolute Auto 0.5 X10*3/uL (0.1-1.2); Monocytes Percent Auto 7.9 % (2-11); Neutrophils Percent Auto 58.8 % (45-73); Platelet Count 314 X10*3/uL (160-400); Red Blood Count 4.59 X10*6/uL (4.20-5.50); Red Cell Distribution Width 13.1 % (11.0-16.0); White Blood Count 6.7 X10*3/uL (4.8-10.8)
[2022-03-31 09:32] LABS: Alanine Aminotransferase 9 U/L (0-31); Albumin Level 4.1 g/dL (3.5-5.0); Alkaline Phosphatase 96 U/L (39-117); Anion Gap 13 (12-20); Aspartate Amino Transferase 18 U/L (5-31); Bilirubin Total 0.5 mg/dL (0.0-1.0); Blood Urea Nitrogen 16 mg/dL (9-16); C Reactive Protein 0.57 mg/dL (< or = 0.50); Calcium 10.1 mg/dL (8.4-10.2); Carbon Dioxide 30 mmol/L (22-29); Chloride 102 mmol/L (96-108); Estimated Glomerular Filt Rate > 60; Glucose Random 97 mg/dL (60-115); Potassium 4.7 mmol/L (3.3-5.1); Sodium 140 mmol/L (135-145); Total Protein 7.6 g/dL (6.5-8.0)
[2022-03-31 09:55] LABS: Erythrocyte Sedimentation Rate 34 MM/HR (0-20)
== END 2022-03-31 08:39 | disposition home or self-care (01) ==
LOC: HO.LAB 08:38
PROVIDERS: PCP Internal Medicine; Visit Provider Nurse Practitioner Family
DX: M06.9 Rheumatoid arthritis, unspecified (principal)
CPT/HCPCS: 36415; 80053; 85025; 85652; 86140

== ENCOUNTER → 2022-04-05 10:28 | Outpatient (BNVA) | payer OTHER, SELFPAY | PROVIDERS: PCP Internal Medicine; Visit Provider Nurse Practitioner Family | DX: M06.9 Rheumatoid arthritis, unspecified (principal); R10.32 Left lower quadrant pain | CPT/HCPCS: 99212 ==

== ENCOUNTER 2022-04-05 11:15 | Emergency (ER) | payer OTHER, SELFPAY ==
--- NOTE | ~2022-04-05 | CT_ITS ---
EXAMINATION: CT ABDOMEN AND PELVIS WITHOUT CONTRAST CLINICAL INFORMATION: left lower quadrant pain . COMPARISON: Visualized upper abdomen on the 12/08/2020 CT scan of the chest. TECHNIQUE: Multidetector volumetric imaging was performed from the superior aspect of the liver through the pubic symphysis without contrast per request. Sagittal and coronal reformatted images were obtained on the technologist workstation. This CT examination was performed using dose optimization techniques as appropriate, variously including the following: *Automated exposure control *Adjustment of mA and/or kV according to patient size (this includes techniques or standardized protocols for targeted exams where dose is matched to indication/reason for exam; i.e. extremities or head) *Use of iterative reconstruction technique DLP: 529 mGy-cm. FINDINGS: LUNG BASES: The visualized lung bases are unremarkable. LIVER, GALLBLADDER, BILIARY TREE: The non-contrast liver is normal in size, shape, and attenuation. No focal hepatic lesion or biliary ductal dilatation is present. The gallbladder is unremarkable with no evidence of radiopaque gallstones, gallbladder wall thickening, or obvious pericholecystic inflammatory changes. PANCREAS: Unremarkable. SPLEEN: Unremarkable. ADRENAL GLANDS: Unremarkable. KIDNEYS AND URETERS: The kidneys are normal in size, shape, and attenuation. No hydronephrosis, hydroureter, or calculi seen. No perinephric stranding. BLADDER: Decompressed and low-lying GASTROINTESTINAL TRACT: Decompressed colon with a few scattered colonic diverticula. I do not appreciate any colonic wall thickening or pericolonic inflammatory change to suggest diverticulitis. Unremarkable appendix. Visualized small bowel unremarkable ABDOMINAL WALL: No significant hernia is appreciated. LYMPHOVASCULAR STRUCTURES: Mild vascular calcification within the aorta iliac system. PELVIC VISCERA: Unremarkable. OSSEUS STRUCTURES: Unremarkable. CT/CT abdomen pelvis wo con IMPRESSION: I do not appreciate any acute intra-abdominal process. No obvious source of the patient's left lower quadrant pain..
[2022-04-05 12:06] VITALS: BP 131/53; PULSE 61; RESP 20; TEMP 36.1; O2SAT 100; BMI 29.2
[2022-04-05 14:52] LABS: MANUAL DIFF FLAG NO
[2022-04-05 14:59] LABS: Basophils Percent Auto 0.5 % (0-2); Eosinophils Absolute Auto 0.1 X10*3/uL (0.0-0.4); Eosinophils Percent Auto 0.6 % (0-4); Hematocrit 41.4 % (37.0-47.0); Hemoglobin 13.5 g/dl (12.0-16.0); Imm Gran Abs Auto 0.03 X10*3/uL (0.00-0.03); Imm Gran Pct Auto 0.4 % (0.0-0.4); Lymphocytes Absolute Auto 2.2 X10*3/uL (1.2-4.9); Lymphocytes Percent Auto 25.8 % (20-40); Mean Corpuscular HGB Conc 32.6 g/dl (31.0-35.0); Mean Corpuscular Hemoglobin 30.2 pg (27.0-33.0); Mean Corpuscular Volume 92.6 fL (80.0-98.0); Monocytes Absolute Auto 0.6 X10*3/uL (0.1-1.2); Monocytes Percent Auto 6.5 % (2-11); Neutrophils Absolute Auto 5.6 x10*3/uL (2.0-8.3); Neutrophils Percent Auto 66.2 % (45-73); Platelet Count 314 X10*3/uL (160-400); Red Blood Count 4.47 X10*6/uL (4.20-5.50); White Blood Count 8.4 X10*3/uL (4.8-10.8)
[2022-04-05 15:08] LABS: Anion Gap 14 (12-20); Blood Urea Nitrogen 15 mg/dL (9-16); Carbon Dioxide 28 mmol/L (22-29); Chloride 103 mmol/L (96-108); Creatinine Clr Calc Pharmacy 65.5; Estimated Glomerular Filt Rate > 60; Glucose Random 99 mg/dL (60-115); Potassium 4.5 mmol/L (3.3-5.1); Sodium 140 mmol/L (135-145)
--- NOTE | 2022-04-05 15:53 | ED_ITS ---
HPI - General Adult General Chief complaint: Abdominal Pain Stated complaint: L side pain Time Seen by Provider: 04/05/22 15:53 Source: patient Mode of arrival: ambulatory Limitations: no limitations History of Present Illness HPI narrative: Patient is a 61 year old female presenting to the emergency department today with lower abdominal pain. Patient states that starting yesterday she began to have low abdominal pain that somewhat radiates down her right leg. Patient denies any dizziness, lightheadedness, nausea, vomiting, fever, chills, blurry vision, double vision, loss of vision, chest pain, difficulty breathing, shortness of breath, back pain, night sweats, pain with urination, increased ur inary frequency, increased urinary urgency, blood in her urine or stool, syncope or a near syncopal episode, recent trauma or falls, bowel incontinence, bladder incontinence, bowel retention, bladder retention, or any other complaints at this time. Onset (ago): day(s) Location: abdomen Severity: mild Severity scale (1-10): 3 Quality: dull Pain Consistency: intermittent Relieving factors: none Exacerbating factors: none Associated symptoms: denies other symptoms Treatments prior to arrival: none Related Data Home Medications Medication Instructions Recorded Confirmed amitriptyline 25 mg tablet mg PO 08/26/20 04/05/22 cyclobenzaprine 10 mg tablet 10 mg PO TID 08/26/20 04/05/22 miscellaneous medical supply 1 ea MISCELLANEOUS ea 12/12/20 04/05/22 acetaminophen 500 mg tablet 500 mg PO Q6H PRN 04/05/22 04/05/22 (Tylenol Extra Strength) Previous Rx's Medication Instructions Recorded estradiol (Estrace) See Rx Instructions .ROUTE 3XW 30 06/26/21 Days #42.5 g epinephrine 0.3 mg/0.3 mL 0.3 mg (0.3 mL) IM Q10M PRN #2 ea 08/24/21 injection, auto-injector Shower Chair #1 ea 12/02/21 suiduuifyx-injcxvuvpzarm-teqchcyk 1 tab PO Q6H PRN 30 Days #30 tab 02/26/22 50 mg-325 mg-40 mg tablet adalimumab 40 mg/0.8 mL 40 mg (0.8 mL) SUBCUT Q2W #2 ea 04/02/22 subcutaneous pen kit (Humira Pen) cephalexin 500 mg capsule 500 mg PO Q6H 7 Days #28 cap 04/05/22 Allergies Allergy/AdvReac Type Severity Reaction Status Date / Time naproxen [NAPROXEN] Allergy Severe STOMACH Verified 04/05/22 10:49 BLEED, bleeding, bleeding meloxicam [MELOXICAM] Allergy Intermediate RASH, hives Verified 04/05/22 10:49 prednisone [PREDNISONE] Allergy Intermediate SWELLING Verified 04/05/22 10:49 pregabalin [From LYRICA] Allergy Intermediate SHORTNESS Verified 04/05/22 10:49 OF BREATH Sulfa (Sulfonamide Allergy Intermediate hives Verified 04/05/22 10:49 Antibiotics) trimethoprim [From BACTRIM] Allergy Intermediate RASH Verified 04/05/22 10:49 oxycodone [From PERCOCET] Allergy Mild RASH Verified 04/05/22 10:49 Penicillins [PENICILLINS] Allergy Mild RASH Verified 04/05/22 10:49 Review of Systems Constitutional: Constitutional: Reports no additional constitutional complaints, Denies chills, Denies fever(s) and Denies night sweats Eyes: Eyes: Reports no additional eye complaints, Denies blurry vision, Denies change in vision, Denies diplopia, Denies eye discharge, Denies loss of vision and Denies eye pain ENT: Denies dizziness Cardiovascular: Cardiovascular: Reports no additional cardiovascular complaints, Denies chest pain, Denies lightheadedness, Denies Loss of Consciousness and Denies dyspnea Respiratory: Respiratory: Reports no additional respiratory complaints and Denies dyspnea Gastrointestinal: Gastrointestinal: Reports no additional gastrointestinal complaints, Reports abdominal pain, Denies melena, Denies hematochezia, Denies change in bowel habits and Denies change in stool character Genitourinary: Genitourinary: Denies hematuria, Denies urinary frequency, Denies dysuria, Denies urinary incontinence, Denies urinary hesitancy and Denies urinary urgency Musculoskeletal: Musculoskeletal: Reports no additional musculoskeletal complaints, Denies numbness and Denies tingling Neurologic: Denies dizziness, Denies loss of vision, Denies numbness and Denies tingling Psychiatric: Psychiatric: Reports no additional psychiatric complaints Endocrine: Endocrine: Reports no additional endocrine complaints Hematologic/Lymphatic: Hematologic/Lymphatic: Reports no additional hematologic/lymphatic complaints Allergic/Immunologic: Allergic/Immunologic: Reports no additional allergic/immunologic complaints PMFSH Past Medical History Attestation statement: The following information was validated with the patient. 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 Infectious diarrhea Left knee pain Migraines Pure hypercholesterolemia Renal cyst, acquired, left Rheumatoid arthritis Surgical History History of total abdominal hysterectomy Hx of hysterectomy Family History Family History Father Hypertension CVD (cardiovascular disease) Mother Hypertension Diabetes Cancer Paternal Grandmother Cancer Brother Colon cancer Social History Social History Housing: Apartment Alcohol intake: current Alcohol intake frequency: holidays/special occasions only Alcohol type: wine Patient Tobacco Use Status: Never used Tobacco e-Cigarette/Vaping Use: Never Used Second Hand Smoke Exposure: No Advance Directives: No Advance Directives Information Provided: No service: No Current occupational status: unemployed Physical Exam ED Vital Signs: Vital Signs - 24 hr 04/05/22 12:06 04/05/22 16:00 04/05/22 18:48 Temperature 97.0 F 97.6 F Pulse Rate 61 68 55 Respiratory Rate 20 16 16 Blood Pressure 131/53 L 128/63 Pulse Oximetry 100 100 100 BMI result Body Mass Index 29.2 Const General: cooperative, no acute distress, alert and awake Nutritional Appearance: well nourished Orientation/consciousness: patient oriented x3 Limitations: no limitations [facility] Head: Yes normal to inspection and Yes atraumatic Ears: hearing grossly normal bilaterally and external ears normal General nose exam: Normal external nose present, no nasal discharge noted and no epistaxis Face and sinus: Yes normal facial exam, No abrasion and No laceration Mouth: Normal oral and palatal mucosa present, no drooling and no muffled voice Eyes General: appearance normal, both eyes and all related structures Periorbital: periorbital findings normal Eyelids: Yes eyelids normal Conjunctivae: conjunctivae normal Pupils: Equal, round and reactive pupils present EOM: EOMs intact bilaterally Neck Neck: Yes normal visual inspection, Yes full ROM and Yes no lymphadenopathy Chest Chest palpation & inspection: normal inspection of the chest Resp Effort & Inspection: normal respiratory effort and able to speak in complete sentences Auscultation: clear to auscultation bilaterally Cardio Rate: regular rate Rhythm: regular rhythm GI Inspection: Yes normal to inspection Palpation (GI): Soft to palpation, not firm, nontender and no guarding Neuro General: patient oriented x3 and moves all extremities Cranial nerves: Yes Equal, round and reactive pupils present Cognition (Neuro): normal cognition Motor exam (neuro): 5/5 motor strength present throughout Sensory Exam: Normal double simultaneous stimulation for sensation Coordination: nulrqe-[id number]-olpb test normal Extrem General: Yes normal to inspection, Yes full ROM and Yes capillary refill normal Psych Appearance: grossly normal Mental Status: mental status grossly normal Affect: normal affect Attitude: cooperative Thought process: Normal thought process present Thought content: Normal thought content present Insight: Good insight present (Psych) Medical Decision Making MDM Narrative Medical decision making narrative: Patient is a 61 year old female presenting to the emergency department today with lower abdominal pain. Patient's physical exam was unremarkable. Patient's blood work was unremarkable. Patient's urine showed an acute urinary tract infection. Patient's abdominal CT showed no acute process. I explained my physical exam findings as well as all test results to the patient. I answered all questions asked by the patient. Patient received IM toradol which she stated helped her symptoms significantly. I stressed the importance of the patient taking her medication as prescribed. I stressed the importance of the patient following up with her primary care provider. I stressed the importance of the patient returning to the emergency department immediately if her symptoms were to worsen or if she were to develop any dizziness, shortness of breath, difficulty breathing, chest pain, blurry vision, loss of vision, nausea, vomiting, abdominal pain, fever, chills, back pain, or any other complaints. Patient verbalized agreement and understanding with this treatment plan and discharge. Differential Diagnosis Differential Diagnosis: urinary tract infection, abdominal pain Medical Records Medical records reviewed: Yes I reviewed the patient's medical records. Lab Data Lab results reviewed: Yes I reviewed the patient's lab results. Result diagrams: 04/05/22 14:45 04/05/22 14:46 Labs: Lab Results 04/05/22 04/05/22 04/05/22 Range/Units 14:45 14:46 16:10 WBC 8.4 (4.8-10.8) X10*3/uL RBC 4.47 (4.20-5.50) X10*6/uL Hgb 13.5 (12.0-16.0) g/dl Hct 41.4 (37.0-47.0) % MCV 92.6 (80.0-98.0) fL MCH 30.2 (27.0-33.0) pg MCHC 32.6 (31.0-35.0) g/dl RDW 13.0 (11.0-16.0) % Plt Count 314 (160-400) X10*3/uL MPV 10.0 (9.4-12.3) fL Immature Gran % (Auto) 0.4 (0.0-0.4) % Neut % (Auto) 66.2 (45-73) % Lymph % (Auto) 25.8 (20-40) % [place] % (Auto) 6.5 (2-11) % Eos % (Auto) 0.6 (0-4) % Baso % (Auto) 0.5 (0-2) % Lymph # (Auto) 2.2 (1.2-4.9) X10*3/uL [place] # (Auto) 0.6 (0.1-1.2) X10*3/uL Eos # (Auto) 0.1 (0.0-0.4) X10*3/uL Baso # (Auto) 0.0 (0.0-0.2) X10*3/uL Abs Immat Gran (auto) 0.03 (0.00-0.03) X10*3/uL Absolute Neuts (auto) 5.6 (2.0-8.3) x10*3/uL Absolute Nucleated RBC 0.000 (0.0-0.012) X10*3/uL Nucleated RBC % (auto) 0.0 (0.0-0.2) /100WBC Sodium 140 (135-145) mmol/L Potassium 4.5 (3.3-5.1) mmol/L Chloride 103 (96-108) mmol/L Carbon Dioxide 28 (22-29) mmol/L Anion Gap 14 (12-20) BUN 15 (9-16) mg/dL Creatinine 0.84 (0.5-1.4) mg/dL Estim Creat Clear Calc 65.5 Estimated GFR > 60 Random Glucose 99 (60-115) mg/dL Calcium 10.0 (8.4-10.2) mg/dL Urine Color YELLOW Urine Appearance CLEAR Urine pH 6.0 (5.0-8.0) Ur Specific [place] 1.015 (1.005-1.025) Urine Protein NEG (NEG-TRACE) MG/DL Urine Glucose (UA) NEG (NEG) MG/DL Urine Ketones NEG (NEG) MG/DL Urine Blood 2+ H (NEG) Urine Nitrite NEG (NEG) Ur Leukocyte Esterase 2+ H (NEG) Urine RBC 15-29 H (0) /HPF Urine WBC 10-14 H (0-4) /HPF Ur Squamous Epith Cells 3+ /LPF Urine Bacteria 1+ /LPF Imaging Data CT scan - abdomen: Attestation: I personally reviewed and interpreted this imaging study as follows: My impression: No acute process. Radiologist's impression: EXAMINATION: CT ABDOMEN AND PELVIS WITHOUT CONTRAST CLINICAL INFORMATION: left lower quadrant pain COMPARISON: Visualized upper abdomen on the 12/08/2020 CT scan of the chest. TECHNIQUE: Multidetector volumetric imaging was performed from the superior aspect of the liver through the pubic symphysis without contrast per request. Sagittal and coronal reformatted images were obtained on the technologist workstation. This CT examination was performed using dose optimization techniques as appropriate, variously including the following: *Automated exposure control *Adjustment of mA and/or kV according to patient size (this includes techniques or standardized protocols for targeted exams where dose is matched to indication/reason for exam; i.e. extremities or head) *Use of iterative reconstruction technique DLP: 529 mGy-cm. FINDINGS: LUNG BASES: The visualized lung bases are unremarkable. LIVER, GALLBLADDER, BILIARY TREE: The non-contrast liver is normal in size, shape, and attenuation. No focal hepatic lesion or biliary ductal dilatation is present.? The gallbladder is unremarkable with no evidence of radiopaque gallstones, gallbladder wall thickening, or obvious pericholecystic inflammatory changes. PANCREAS: Unremarkable. SPLEEN: Unremarkable. ADRENAL GLANDS: Unremarkable. KIDNEYS AND URETERS: The kidneys are normal in size, shape, and attenuation. No hydronephrosis, hydroureter, or calculi seen. No perinephric stranding. BLADDER: Decompressed and low-lying GASTROINTESTINAL TRACT: Decompressed colon with a few scattered colonic diverticula. I do not appreciate any colonic wall thickening or pericolonic inflammatory change to suggest diverticulitis. Unremarkable appendix. Visualized small bowel unremarkable ABDOMINAL WALL: No significant hernia is appreciated. LYMPHOVASCULAR STRUCTURES: Mild vascular calcification within the aorta iliac system. PELVIC VISCERA: Unremarkable. OSSEUS STRUCTURES: Unremarkable. CT/CT abdomen pelvis wo con IMPRESSION: I do not appreciate any acute intra-abdominal process. No obvious source of the patient's left lower quadrant pain.. Dictated By: Allan Smith MD Signed By: Electronically signed by Allan Smith MD 04/05/22 1830 Discharge Plan Discharge Clinical Impression: Abdominal pain in female, UTI (urinary tract infection) Patient Disposition: Home, Self-Care Instructions: Urinary Tract Infection in Women (DC), Abdominal Pain (ED) Additional Instructions: Follow up with your primary care provider. Return to the emergency department immediately if your symptoms worsen or if you develop any dizziness, shortness of breath, difficulty breathing, chest pain, blurry vision, loss of vision, nausea, vomiting, abdominal pain, fever, chills, back pain, or any other complaints. Prescriptions: New cephalexin 500 mg capsule 500 mg PO Q6H 7 Days Qty: 28 0RF No Action miscellaneous medical supply Misc 1 ea miscellaneous 0RF Rx Instructions: Pulse Oximeter (DME) Shower Chair Misc See Rx Instructions .Route Qty: 1 0RF Rx Instructions: Shower chair size small amwzxauszj-aqcwvpkiauprw-vdoe 50-325-40 mg tablet 1 tab PO Q6H PRN (Reason: pain) 30 Days Qty: 30 0RF Humira Pen 40 mg/0.8 mL pen injector kit 40 mg subcut Q2W Qty: 2 3RF epinephrine 0.3 mg/0.3 mL auto-injector 0.3 mg IM Q10M PRN (Reason: anaphylaxis) Qty: 2 0RF Rx Instructions: for 2 doses amitriptyline 25 mg tablet PO 0RF cyclobenzaprine 10 mg tablet 10 mg PO TID 0RF estradiol [Estrace] 0.01 % (0.1 mg/gram) cream See Rx Instructions .ROUTE 3XW 30 Days Qty: 42.5 3RF Rx Instructions: pea sized amount per urethra 3 times a week; acetaminophen [Tylenol Extra Strength] 500 mg tablet 500 mg PO Q6H PRN0RF Referrals: Paz Robert MD [Primary Care Provider] - (Follow up with your PCP. ) Interventions: ED Discharge Assessment Last Done: 04/05/22 18:49 Discharge Date/Time: 04/05/22 19:01 Print Language: Estonian
[2022-04-05 16:00] VITALS: BP 128/63; PULSE 68; RESP 16; TEMP 36.4; O2SAT 100
[2022-04-05 16:17] LABS: Appearance Urine CLEAR; Color Urine YELLOW; Glucose Urine UA NEG (NEG); Leukocyte Esterase Urine 2+ (NEG); Nitrite Urine NEG (NEG); Specific Gravity - Urine 1.015 (1.005-1.025); UACC Culture Trigger YES; Urine Blood 2+ (NEG); Urine Ketones NEG (NEG); Urine Protein NEG (NEG-TRACE)
[2022-04-05 16:38] LABS: Bacteria Urine 1+ /LPF; Squamous Epithelial Cell Urine 3+ /LPF
[2022-04-05 18:48] VITALS: PULSE 55; RESP 16; O2SAT 100
== END 2022-04-05 19:01 | disposition home or self-care (01) ==
PROVIDERS: Physician Assistant Medical; Emergency Provider Internal Medicine; PCP Internal Medicine
DX: N39.0 Urinary tract infection, site not specified (principal)
CPT/HCPCS: 36415; 74176; 80048; 81001; 85025; 87086; 87147; 99284

== ENCOUNTER 2022-07-27 15:56 | Outpatient (REF) | payer OTHER, SELFPAY ==
[2022-07-27 16:59] LABS: COVID-19 Test Negative (Negative); IDNOW Serial# 16C4AD1C
== END 2022-07-27 15:57 | disposition home or self-care (01) ==
LOC: HO.LAB 15:56
PROVIDERS: Visit Provider Internal Medicine
DX: Z20.822 Contact with and (suspected) exposure to COVID-19 (principal)
CPT/HCPCS: 87635; C9803

== ENCOUNTER 2022-08-08 22:14 | Emergency (ER) | payer OTHER, SELFPAY ==
[2022-08-08 22:26] VITALS: BP 140/80; PULSE 110; RESP 15; TEMP 38.3; O2SAT 100; BMI 30.7
[2022-08-09 00:34] LABS: Hematocrit 40.6 % (37.0-47.0); Hemoglobin 13.2 g/dl (12.0-16.0); Mean Corpuscular HGB Conc 32.5 g/dl (31.0-35.0); Mean Corpuscular Hemoglobin 30.1 pg (27.0-33.0); Mean Corpuscular Volume 92.7 fL (80.0-98.0); Mean Platelet Volume 9.6 fL (9.4-12.3); Platelet Count 322 X10*3/uL (160-400); Red Blood Count 4.38 X10*6/uL (4.20-5.50); Red Cell Distribution Width 13.2 % (11.0-16.0); White Blood Count 9.3 X10*3/uL (4.8-10.8)
[2022-08-09 00:48] LABS: Alanine Aminotransferase 12 U/L (0-31); Alkaline Phosphatase 97 U/L (39-117); Anion Gap 13 (12-20); Aspartate Amino Transferase 20 U/L (5-31); Bilirubin Total 0.2 mg/dL (0.0-1.0); Blood Urea Nitrogen 14 mg/dL (9-16); Calcium 9.3 mg/dL (8.4-10.2); Carbon Dioxide 28 mmol/L (22-29); Chloride 102 mmol/L (96-108); Estimated Glomerular Filt Rate > 60; Glucose Random 98 mg/dL (60-115); Potassium 4.8 mmol/L (3.3-5.1); Sodium 138 mmol/L (135-145); Total Protein 7.6 g/dL (6.5-8.0)
[2022-08-09 02:10] VITALS: BP 130/59; PULSE 57; RESP 18; TEMP 36.5; O2SAT 100
--- NOTE | 2022-08-09 03:38 | ECG_ITS ---
Test Reason : chest pain Blood Pressure : / mmHG Vent. Rate : 056 BPM Atrial Rate : 056 BPM P-R Int : 152 ms QRS Dur : 082 ms QT Int : 466 ms P-R-T Axes : 034 011 002 degrees QTc Int : 449 ms Sinus bradycardia Inferior infarct , age undetermined Abnormal ECG When compared with ECG of 24-JUN-2021 12:11, No significant change was found Referred By: Generic ED Physician Electronically Signed By:ABRAHAM GOMEZ
[2022-08-09 03:39] VITALS: BP 124/89; PULSE 53; RESP 22; TEMP 36.4; O2SAT 97
[2022-08-09 04:07] LABS: Troponin-I High Sensitivity < 3.5 ng/L (<3.5-17.0)
--- NOTE | 2022-08-09 05:43 | PC.NURSE ---
pt states she is coming for right ear pain. pt states she had chest pain and it has resolved. pt states she has had the chest pain for almost one week and thinks she pulled a muscle.
[2022-08-09 05:51] VITALS: BP 119/63; PULSE 47; RESP 16; O2SAT 100
--- NOTE | 2022-08-09 06:52 | ED.GENADULT ---
HPI - General Adult General Chief complaint: Chest Pain Stated complaint: ear pain Time Seen by Provider: 08/09/22 06:49 Source: patient Mode of arrival: ambulatory Limitations: no limitations History of Present Illness HPI narrative: Came in for evaluation of right ear pain, chest pain. Right ear pain for the past 2-3 days, declined using a public for or swimming recently, no trauma to the right ear, no fever, no chills. Patient also is complaining of chest pain that started last night at 07:00 o'clock pain is localized to the left side of the chest with no radiation, no other associated symptoms describes the pain as moderate 5/10, no SOB, no recent travel, no lower extremity swelling or tenderness. Related Data Home Medications Medication Instructions Recorded Confirmed amitriptyline 25 mg tablet mg PO 08/26/20 06/08/22 cyclobenzaprine 10 mg tablet 10 mg PO TID 08/26/20 06/08/22 miscellaneous medical supply 1 ea miscellaneous 12/12/20 06/08/22 acetaminophen 500 mg tablet 500 mg PO Q6H PRN 04/05/22 06/08/22 (Tylenol Extra Strength) Previous Rx's Medication Instructions Recorded estradiol 0.01% (0.1 mg/gram) See Rx Instructions .Route 3XW 06/26/21 vaginal cream (Estrace) complicated uti 30 days #42.5 grams epinephrine 0.3 mg/0.3 mL 0.3 mg (0.3 mL) IM Q10M PRN 08/24/21 injection, auto-injector anaphylaxis #2 ea xzxcyohcat-uypvrgchzagto-nftuvtns 1 tab PO Q6H PRN pain 30 days #30 02/26/22 50 mg-325 mg-40 mg tablet tabs adalimumab 40 mg/0.8 mL 40 mg (0.8 mL) subcut Q2W #2 ea 04/02/22 subcutaneous pen kit (Humira Pen) Shower Chair #1 ea 04/06/22 azithromycin 250 mg tablet See Rx Instructions PO .COMPLEX #6 08/09/22 (Zithromax Z-Devyn) tabs Allergies Allergy/AdvReac Type Severity Reaction Status Date / Time naproxen [NAPROXEN] Allergy Severe STOMACH Verified 06/08/22 14:02 BLEED, bleeding, bleeding meloxicam [MELOXICAM] Allergy Intermediate RASH, hives Verified 06/08/22 14:02 prednisone [PREDNISONE] Allergy Intermediate SWELLING Verified 06/08/22 14:02 pregabalin [From LYRICA] Allergy Intermediate SHORTNESS Verified 06/08/22 14:02 OF BREATH Sulfa (Sulfonamide Allergy Intermediate hives Verified 06/08/22 14:02 Antibiotics) trimethoprim [From BACTRIM] Allergy Intermediate RASH Verified 06/08/22 14:02 oxycodone [From PERCOCET] Allergy Mild RASH Verified 06/08/22 14:02 Penicillins [PENICILLINS] Allergy Mild RASH Verified 06/08/22 14:02 Review of Systems Review of Systems: All other systems are reviewed and are negative Constitutional: Reports as per HPI and Reports no additional constitutional complaints Eyes: Reports as per HPI and Reports no additional eye complaints Reports system reviewed and no additional complaints, except as documented Cardiovascular: Reports as per HPI and Reports no additional cardiovascular complaints Respiratory: Reports as per HPI and Reports no additional respiratory complaints Gastrointestinal: Reports as per HPI and Reports no additional gastrointestinal complaints Genitourinary: Reports no additional female genitourinary complaints Musculoskeletal: Reports no additional musculoskeletal complaints Skin/Breast: Reports system reviewed and no additional complaints, except as docu Psychiatric: Reports no additional psychiatric complaints Endocrine: Reports no additional endocrine complaints Hematologic/Lymphatic: Reports no additional hematologic/lymphatic complaints Allergic/Immunologic: Reports no additional allergic/immunologic complaints Reports system reviewed and no additional complaints, except as documented and Reports Abnormal speech present [facility] Past Medical History Medical History Chest pain Chronic lower urinary tract infection GERD (gastroesophageal reflux disease) Hematochezia 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 Infectious diarrhea Left knee pain Migraines Pure hypercholesterolemia Renal cyst, acquired, left Rheumatoid arthritis Surgical History History of total abdominal hysterectomy Hx of hysterectomy Family History Family History Father Hypertension CVD (cardiovascular disease) Mother Hypertension Diabetes Cancer Paternal Grandmother Cancer Brother Colon cancer Social History Social History Housing: Apartment Alcohol intake: current Alcohol intake frequency: holidays/special occasions only Alcohol type: wine Patient Tobacco Use Status: Never used Tobacco e-Cigarette/Vaping Use: Never Used Second Hand Smoke Exposure: No Advance Directives: No Advance Directives Information Provided: Yes service: No Current occupational status: unemployed Cognitive needs: No Hearing needs: No Vision needs: No Physical Exam ED Vital Signs: Vital Signs - 24 hr 08/08/22 22:26 08/09/22 02:10 08/09/22 03:39 Temperature 100.9 F H 97.7 F 97.6 F Pulse Rate 110 H 57 53 Respiratory Rate 15 18 22 H Blood Pressure 140/80 H 130/59 L 124/89 Pulse Oximetry 100 100 97 Oxygen Delivery Method Room Air Room Air 08/09/22 05:51 Temperature Pulse Rate 47 L Respiratory Rate 16 Blood Pressure 119/63 Pulse Oximetry 100 Oxygen Delivery Method Room Air BMI result Body Mass Index 30.7 Vital signs have been reviewed as appeared to be correct. Blood pressure normal. Heart rate normal. Respiration rate normal. Temperature normal. Oxygen saturation normal. Appearance: Alert. Oriented X3. No acute distress. Head: Normal external exam. Normocephalic. Atraumatic. No Bonilla signs noted. No raccoon eyes noted Eyes: PERRLA. EOMI. Conjunctiva and sclera normal. Eyelids normal. ENT: Right otitis media with erythema to the right TM, no bulging, absence of light reflex to the right ear. Neck: Normal inspection. Neck supple. FROM. No adenopathy. Thyroid Normal. No meningeal signs. No neck mass noted. CVS: Normal heart rate and rhythm. Heart sound normal. No murmurs noted. Pulses normal throughout. Respiratory: No respiratory distress. Painless inspiration. Breath sounds normal. No wheezes/rales/rhonchi noted. Chest nontender. No accessory muscle usage noted or decreased air movement noted. Abdomen: Soft and nontender. Bowel sounds normal in all 4 quadrants. No distention noted. No organomegaly noted. No visible injury noted. Back: No CVA tenderness. Full range of motion noted. Skin: Skin warm and dry. Normal skin color. Normal skin turgor. No rashes/lesions/lacerations noted. Extremities: No lower extremity edema. Extremities exhibit normal range of motion. Extremities nontender. Neuro: Oriented X 3. Cranial nerve exam: II-XII are grossly intact No motor deficit. No sensory deficit. Reflexes normal. Course Course Course Narrative: 61-year-old female came in for evaluation of right ear pain exam reveals right otitis media. Patient initially when she came in with complaining of chest and abdominal pain. Physical exam revealed no reproducible tenderness to the chest or abdomen, patient's symptoms has resolved and she feels better, vital sign has been stable patient slightly bradycardic but patient is asymptomatic and reviewing old vital sign patient usually run on a low side of heart rate (chronic). Patient has no abdominal tenderness with unremarkable labs. Patient had previous visit to the ED with similar symptoms had previous workup for CP and abdominal pain which was negative, patient is HEART score of 2 at low risk for having ACS. Patient appear anxious during the interview which is explaining patient's symptoms. Medical Decision Making Lab Data Lab results reviewed: Yes I reviewed the patient's lab results. Result diagrams: 08/09/22 00:27 08/09/22 00:27 Labs: Lab Results 08/09/22 08/09/22 08/09/22 Range/Units 00: 00:27 03:42 WBC 9.3 (4.8-10.8) X10*3/uL RBC 4.38 (4.20-5.50) X10*6/uL Hgb 13.2 (12.0-16.0) g/dl Hct 40.6 (37.0-47.0) % MCV 92.7 (80.0-98.0) fL MCH 30.1 (27.0-33.0) pg MCHC 32.5 (31.0-35.0) g/dl RDW 13.2 (11.0-16.0) % Plt Count 322 (160-400) X10*3/uL MPV 9.6 (9.4-12.3) fL Absolute Nucleated RBC 0.000 (0.0-0.012) X10*3/uL Nucleated RBC % (auto) 0.0 (0.0-0.2) /100WBC Sodium 138 (135-145) mmol/L Potassium 4.8 (3.3-5.1) mmol/L Chloride 102 (96-108) mmol/L Carbon Dioxide 28 (22-29) mmol/L Anion Gap 13 (12-20) BUN 14 (9-16) mg/dL Creatinine 0.92 (0.5-1.4) mg/dL Estim Creat Clear Calc 71.0 Estimated GFR > 60 Random Glucose 98 (60-115) mg/dL Calcium 9.3 D (8.4-10.2) mg/dL Total Bilirubin 0.2 (0.0-1.0) mg/dL AST 20 (5-31) U/L ALT 12 (0-31) U/L Alkaline Phosphatase 97 (39-117) U/L Troponin I High Sens < 3.5 (<3.5-17.0) ng/L Total Protein 7.6 (6.5-8.0) g/dL Albumin 4.0 (3.5-5.0) g/dL ECG Data Attestation: I personally reviewed and interpreted this ECG as follows: Interpretation: Sinus bradycardia at 56 beats per minute, normal axis deviation, normal intervals, no acute ST-T changes. Discharge Plan Discharge Clinical Impression: Otitis media Patient Disposition: Home, Self-Care Instructions: Ear Infection (ED) Prescriptions: New azithromycin [Zithromax Z-Devyn] 250 mg tablet See Rx Instructions .ROUTE .COMPLEX Qty: 6 0RF Rx Instructions: For 250 mg dose pack: take 500 mg today (day 1), then 250 mg for 4 days (days 2-5) No Action miscellaneous medical supply Misc 1 ea miscellaneous Rx Instructions: Pulse Oximeter zixtvdgqqv-uopnxgekcwocs-hwbw 50-325-40 mg tablet 1 tab PO Q6H PRN (Reason: pain) 30 Days Qty: 30 0RF Humira Pen 40 mg/0.8 mL pen injector kit 40 mg subcut Q2W Qty: 2 3RF (DME) Shower Chair Mis See Rx Instructions .Route Qty: 1 0RF Rx Instructions: Shower chair size small epinephrine 0.3 mg/0.3 mL auto-injector 0.3 mg IM Q10M PRN (Reason: anaphylaxis) Qty: 2 0RF Rx Instructions: for 2 doses amitriptyline 25 mg tablet PO cyclobenzaprine 10 mg tablet 10 mg PO TID estradiol [Estrace] 0.01 % (0.1 mg/gram) cream See Rx Instructions .ROUTE 3XW 30 Days Qty: 42.5 3RF Rx Instructions: pea sized amount per urethra 3 times a week; acetaminophen [Tylenol Extra Strength] 500 mg tablet 500 mg PO Q6H PRN Referrals: Paz Robert MD [Primary Care Provider] -
[2022-08-09] MEDS: Ibuprofen 600 MG TABLET PO (06:55)
[2022-08-09] MEDS: Azithromycin 500 MG TABLET PO (06:55)
== END 2022-08-09 07:04 | disposition home or self-care (01) ==
PROVIDERS: Emergency Provider Emergency Medicine; PCP Internal Medicine
DX: H66.91 Otitis media, unspecified, right ear (principal); R00.1 Bradycardia, unspecified
CPT/HCPCS: 36415; 80053; 84484; 85027; 93005; 99283; 99284

== ENCOUNTER → 2022-09-24 14:12 | Outpatient (BNVA) | payer OTHER, SELFPAY | PROVIDERS: PCP Internal Medicine; Visit Provider Nurse Practitioner Family | DX: M06.9 Rheumatoid arthritis, unspecified (principal); M25.562 Pain in left knee; R10.32 Left lower quadrant pain; G89.29 Other chronic pain | CPT/HCPCS: 99212 ==

== ENCOUNTER 2022-10-11 09:21 | Outpatient (REF) | payer OTHER, SELFPAY ==
--- NOTE | ~2022-10-11 | XR_ITS ---
EXAMINATION: XR KNEE, LEFT CLINICAL INFORMATION: Pain COMPARISON: None TECHNIQUE: Three views of the left knee. FINDINGS: There is moderate loss of patellofemoral compartment joint space with superior patellar spurring. No loose bodies, bony erosive changes or joint effusion seen. The medial and the lateral compartment joint space is preserved. There is mild periarticular spurring lateral compartment. No acute fracture, lytic or sclerotic process seen. XR/XR knee LT 3V IMPRESSION: Moderate degenerative changes patellofemoral compartment with superior patellar spurring. No visible acute fracture, dislocation or subluxation seen. Mild periarticular spurring lateral compartment.
[2022-10-11 09:47] LABS: MANUAL DIFF FLAG NO
[2022-10-11 10:04] LABS: Basophils Percent Auto 0.3 % (0-2); Eosinophils Absolute Auto 0.1 X10*3/uL (0.0-0.4); Eosinophils Percent Auto 0.9 % (0-4); Hematocrit 42.4 % (37.0-47.0); Hemoglobin 13.9 g/dl (12.0-16.0); Imm Gran Abs Auto 0.02 X10*3/uL (0.00-0.03); Imm Gran Pct Auto 0.3 % (0.0-0.4); Lymphocytes Absolute Auto 1.5 X10*3/uL (1.2-4.9); Lymphocytes Percent Auto 23.4 % (20-40); Mean Corpuscular HGB Conc 32.8 g/dl (31.0-35.0); Mean Corpuscular Hemoglobin 29.8 pg (27.0-33.0); Mean Corpuscular Volume 90.8 fL (80.0-98.0); Mean Platelet Volume 9.9 fL (9.4-12.3); Monocytes Absolute Auto 0.5 X10*3/uL (0.1-1.2); Monocytes Percent Auto 7.7 % (2-11); Neutrophils Absolute Auto 4.3 x10*3/uL (2.0-8.3); Neutrophils Percent Auto 67.4 % (45-73); Platelet Count 322 X10*3/uL (160-400); Red Blood Count 4.67 X10*6/uL (4.20-5.50); Red Cell Distribution Width 13.3 % (11.0-16.0); White Blood Count 6.4 X10*3/uL (4.8-10.8)
[2022-10-11 10:37] LABS: Alanine Aminotransferase 11 U/L (0-31); Albumin Level 4.1 g/dL (3.5-5.0); Alkaline Phosphatase 98 U/L (39-117); Anion Gap 14 (12-20); Aspartate Amino Transferase 18 U/L (5-31); Bilirubin Total 0.4 mg/dL (0.0-1.0); Blood Urea Nitrogen 14 mg/dL (9-16); Calcium 9.6 mg/dL (8.4-10.2); Carbon Dioxide 28 mmol/L (22-29); Chloride 103 mmol/L (96-108); Cholesterol 235 mg/dL; Estimated Glomerular Filt Rate > 60; Glucose Fasting 90 mg/dL (60-99); HDL Cholesterol 56 mg/dL; LDL Cholesterol Calculated 160 mg/dl; Potassium 4.5 mmol/L (3.3-5.1); Sodium 140 mmol/L (135-145); Total Protein 7.6 g/dL (6.5-8.0); Triglycerides 99 mg/dL
[2022-10-11 10:40] LABS: Alanine Aminotransferase 11 U/L (0-31); Albumin Level 4.1 g/dL (3.5-5.0); Alkaline Phosphatase 97 U/L (39-117); Anion Gap 15 (12-20); Aspartate Amino Transferase 20 U/L (5-31); Bilirubin Total 0.4 mg/dL (0.0-1.0); Blood Urea Nitrogen 14 mg/dL (9-16); C Reactive Protein 0.49 mg/dL (< or = 0.50); Calcium 9.6 mg/dL (8.4-10.2); Carbon Dioxide 27 mmol/L (22-29); Chloride 103 mmol/L (96-108); Estimated Glomerular Filt Rate > 60; Glucose Random 91 mg/dL (60-115); Potassium 4.7 mmol/L (3.3-5.1); Sodium 140 mmol/L (135-145); Total Protein 7.7 g/dL (6.5-8.0)
[2022-10-11 10:44] LABS: Erythrocyte Sedimentation Rate 28 MM/HR (0-20)
== END 2022-10-11 09:22 | disposition home or self-care (01) ==
LOC: HO.LAB 09:21
PROVIDERS: Absent Provider Nurse Practitioner Family; PCP Internal Medicine; Visit Provider Internal Medicine
DX: M06.9 Rheumatoid arthritis, unspecified (principal); E78.00 Pure hypercholesterolemia, unspecified; E78.5 Hyperlipidemia, unspecified; M25.562 Pain in left knee
CPT/HCPCS: 36415; 73562; 80053; 80061; 85025; 85652; 86140

== ENCOUNTER 2022-10-14 11:39 | Outpatient (REF) | payer OTHER, SELFPAY ==
--- NOTE | ~2022-10-14 | XR_ITS ---
EXAMINATION: XR KNEE AP STANDING CLINICAL INFORMATION: Pain COMPARISON: Previous right knee x-ray 2019 and the left knee x-ray September 2022 TECHNIQUE: AP bilateral standing view of the knees was obtained. FINDINGS: Bone alignment is normal. No fracture or dislocation. Normal joint spaces. Normal soft tissues. XR/XR knee standing BI IMPRESSION: Normal standing AP knees.
== END 2022-10-14 11:40 | disposition home or self-care (01) ==
LOC: HO.HOSX 11:39
PROVIDERS: Visit Provider Orthopaedic Surgery
DX: M17.12 Unilateral primary osteoarthritis, left knee (principal); M06.9 Rheumatoid arthritis, unspecified; Z79.899 Other long term (current) drug therapy
CPT/HCPCS: 73565; 99202

== ENCOUNTER 2022-11-12 10:06 | Outpatient (REF) | payer OTHER, SELFPAY ==
--- NOTE | ~2022-11-12 | US_ITS ---
EXAMINATION: US RETROPERITONEAL LIMITED (RENAL ONLY) CLINICAL INFORMATION: Cyst of kidney. COMPARISON: CT abdomen and pelvis 04/05/2022. Renal ultrasound 10/06/2021. TECHNIQUE: Real-time imaging of the kidneys. FINDINGS: RIGHT KIDNEY: 9.1 x 4.7 x 6.2 cm (SAG x AP x TRV). The kidney is normal in size, contour, and echogenicity. Renal cortical thickness is normal. No calculi or focal parenchymal lesions. No hydronephrosis. LEFT KIDNEY: 9.8 x 5.5 x 5.3 cm (SAG x AP x TRV). Again seen is prominence of the left mid renal parenchyma for example image 11/20. There was a similar appearance on the prior ultrasound 10/06/2021 with no discrete abnormality seen on prior CT 04/05/2022. This region is prominent but has the same sonographic echotexture and CT density as adjacent renal parenchyma, likely prominent cortex rather than a mass. No renal calculi or hydronephrosis. There is a tiny 4 mm cyst in the lower pole the left kidney. US/US renal BI IMPRESSION: Tiny 4 mm cyst in the lower pole the left kidney. No imaging follow-up recommended.
== END 2022-11-12 10:07 | disposition home or self-care (01) ==
LOC: HO.US 10:06
DX: N28.1 Cyst of kidney, acquired (principal)
CPT/HCPCS: 76775

== ENCOUNTER → 2022-12-06 09:12 | Outpatient (BNVA) | payer OTHER, SELFPAY | PROVIDERS: PCP Internal Medicine; Visit Provider Urology | DX: Z13.9 Encounter for screening, unspecified (principal); N28.1 Cyst of kidney, acquired; N39.0 Urinary tract infection, site not specified | CPT/HCPCS: 51798; 99212 ==

== ENCOUNTER 2022-12-10 09:39 | Outpatient (REF) | payer OTHER, SELFPAY | END 2022-12-10 09:40 | disposition home or self-care (01) | LOC: HO.LAB 09:39 | PROVIDERS: PCP Internal Medicine; Visit Provider Urology | DX: N39.0 Urinary tract infection, site not specified (principal) | CPT/HCPCS: 87086 ==

== ENCOUNTER → 2022-12-21 14:06 | Outpatient (BNVA) | payer OTHER, SELFPAY | PROVIDERS: PCP Internal Medicine; Visit Provider Nurse Practitioner Family | DX: M05.9 Rheumatoid arthritis with rheumatoid factor, unspecified (principal); M17.12 Unilateral primary osteoarthritis, left knee; Z79.899 Other long term (current) drug therapy | CPT/HCPCS: 99212 ==

== ENCOUNTER 2023-01-14 15:29 | Outpatient (REF) | payer OTHER, SELFPAY ==
--- NOTE | ~2023-01-14 | MM_ITS ---
EXAMINATION: MM SCREENING DIGITAL BREAST TOMOSYNTHESIS, BILATERAL CLINICAL INFORMATION: Screening. Asymptomatic. The lifetime risk of breast cancer based on the Tyrer-Cuzick Model is 5%. COMPARISON: Mammography: Multiple prior exams, most recent 01/13/2022 TECHNIQUE: Digital breast tomosynthesis is performed in both the craniocaudal and mediolateral oblique views along with computer-aided detection (CAD). Synthesized 2D images are generated from the tomosynthesis. Additional left CC and left MLO views are provided. FINDINGS: There are scattered areas of fibroglandular density (ACR BI-RADS breast composition Category b). There are no significant masses, abnormal calcifications, or other abnormalities. No architectural abnormality or developing density or significant change from prior studies. Minor parenchymal asymmetries are similar to prior studies. The axilla are unremarkable. MM/MM tomosynthesis screening BI IMPRESSION: No mammographic evidence of malignancy. ASSESSMENT: BI-RADS 2: Benign RECOMMENDATION: Routine annual mammography screening. This patient's information was entered into a reminder system with a target due date for their next mammogram.
== END 2023-01-14 15:30 | disposition home or self-care (01) ==
LOC: HO.MAMMO 15:29
PROVIDERS: PCP Internal Medicine; Visit Provider Nurse Practitioner Family
DX: Z12.31 Encounter for screening mammogram for malignant neoplasm of breast (principal)
CPT/HCPCS: 77063; 77067

== ENCOUNTER 2023-02-23 10:04 | Outpatient (REF) | payer OTHER, SELFPAY ==
--- NOTE | ~2023-02-23 | US_ITS ---
EXAMINATION: US ABDOMEN COMPLETE CLINICAL INFORMATION: Unspecified abdominal pain. COMPARISON: Ultrasound retroperitoneal limited (renal only) 11/12/2022. CT abdomen and pelvis 04/05/2022. Ultrasound retroperitoneal limited (renal only) 10/06/2021. X-ray abdomen KUB 09/20/2016. TECHNIQUE: Real-time imaging of the abdominal viscera. FINDINGS: PANCREAS: Normal. ABDOMINAL AORTA: The proximal, mid, and distal segments are normal in caliber. INFERIOR VENA CAVA: Visualized portions are normal. LIVER: Normal. The liver is normal in size. The liver contour is normal. Parenchymal echogenicity is normal. No focal hepatic lesion. There is no intrahepatic biliary duct dilatation seen. GALLBLADDER: Normal. The gallbladder is physiologically distended without evidence of stones, sludge, polyps, wall thickening or pericholecystic fluid. COMMON BILE DUCT: Normal in caliber measuring 0.5 cm in diameter. RIGHT KIDNEY: Normal. No hydronephrosis. No renal calculi or focal parenchymal lesions. The kidney measures 10.0 cm in maximum dimension. LEFT KIDNEY: Normal. No hydronephrosis. No renal calculi or focal parenchymal lesions. The kidney measures 9.8 cm in maximum dimension. SPLEEN: Normal. The spleen measures 8.3 cm in maximum dimension. FREE FLUID: None. US/US abdomen complete IMPRESSION: Unremarkable exam.
== END 2023-02-23 10:05 | disposition home or self-care (01) ==
LOC: HO.US 10:04
PROVIDERS: PCP Internal Medicine; Visit Provider Internal Medicine
DX: R10.9 Unspecified abdominal pain (principal)
CPT/HCPCS: 76700

== ENCOUNTER → 2023-03-04 10:08 | Outpatient (BNVA) | payer OTHER, SELFPAY | PROVIDERS: PCP Internal Medicine; Visit Provider Urology | DX: N95.2 Postmenopausal atrophic vaginitis (principal); N28.1 Cyst of kidney, acquired; N39.0 Urinary tract infection, site not specified | CPT/HCPCS: 99212 ==

== ENCOUNTER 2023-03-28 13:22 | Outpatient (REF) | payer OTHER, SELFPAY ==
[2023-03-29 09:35] LABS: BV Int Neg Control Negative (Negative); BV Int Pos Control Positive (Positive)
== END 2023-03-28 13:23 | disposition home or self-care (01) ==
LOC: HO.LAB 13:22
PROVIDERS: PCP Internal Medicine; Visit Provider Advanced Practice Midwife
DX: R10.2 Pelvic and perineal pain (principal)
CPT/HCPCS: 81003; 87086; 87480; 87510; 87660; 99202

== ENCOUNTER → 2023-04-20 14:35 | Outpatient (BNVA) | payer OTHER, SELFPAY | PROVIDERS: PCP Internal Medicine; Visit Provider Student in an Organized Health Care Education/Training Program | DX: M06.9 Rheumatoid arthritis, unspecified (principal); M25.562 Pain in left knee; M17.0 Bilateral primary osteoarthritis of knee; N39.0 Urinary tract infection, site not specified; Z11.59 Encounter for screening for other viral diseases; Z11.7 Encounter for testing for latent tuberculosis infection | CPT/HCPCS: 99212 ==

== ENCOUNTER 2023-04-28 09:49 | Outpatient (REF) | payer OTHER, SELFPAY ==
[2023-04-28 10:07] LABS: MANUAL DIFF FLAG NO
[2023-04-28 11:23] LABS: Basophils Percent Auto 0.5 % (0-2); Eosinophils Absolute Auto 0.1 X10*3/uL (0.0-0.4); Eosinophils Percent Auto 1.9 % (0-4); Hematocrit 40.8 % (37.0-47.0); Hemoglobin 12.9 g/dl (12.0-16.0); Imm Gran Abs Auto 0.02 X10*3/uL (0.00-0.03); Imm Gran Pct Auto 0.3 % (0.0-0.4); Lymphocytes Absolute Auto 1.6 X10*3/uL (1.2-4.9); Lymphocytes Percent Auto 24.5 % (20-40); Mean Corpuscular HGB Conc 31.6 g/dl (31.0-35.0); Mean Corpuscular Hemoglobin 29.5 pg (27.0-33.0); Mean Corpuscular Volume 93.4 fL (80.0-98.0); Mean Platelet Volume 10.8 fL (9.4-12.3); Monocytes Absolute Auto 0.4 X10*3/uL (0.1-1.2); Monocytes Percent Auto 6.3 % (2-11); Neutrophils Absolute Auto 4.2 x10*3/uL (2.0-8.3); Neutrophils Percent Auto 66.5 % (45-73); Platelet Count 350 X10*3/uL (160-400); Red Blood Count 4.37 X10*6/uL (4.20-5.50); Red Cell Distribution Width 13.8 % (11.0-16.0); White Blood Count 6.4 X10*3/uL (4.8-10.8)
[2023-04-28 11:58] LABS: Alanine Aminotransferase 12 U/L (0-31); Alkaline Phosphatase 97 U/L (39-117); Anion Gap 12 (12-20); Aspartate Amino Transferase 22 U/L (5-31); Bilirubin Total 0.5 mg/dL (0.0-1.0); Blood Urea Nitrogen 13 mg/dL (9-16); C Reactive Protein 0.62 mg/dL (< or = 0.50); Calcium 9.7 mg/dL (8.4-10.2); Carbon Dioxide 27 mmol/L (22-29); Chloride 104 mmol/L (96-108); Estimated Glomerular Filt Rate > 60; Glucose Random 87 mg/dL (60-115); Potassium 4.4 mmol/L (3.3-5.1); Sodium 139 mmol/L (135-145); Total Protein 7.6 g/dL (6.5-8.0)
[2023-04-28 12:23] LABS: Erythrocyte Sedimentation Rate 38 MM/HR (0-20)
[2023-04-29 03:14] LABS: HBS Num1 0.23 mIU/mL (0-7.99); HBc Num1 0.09 S/CO (0.00-0.79); HBsAGNum1 0.31 S/CO (0.00-0.99); Hepatitis A Antibody IgM 0.56 Index (0-0.79); Hepatitis B Core Antibody Nonreactive (Nonreactive); Hepatitis B Surface Antigen Negative (Negative); ~Hepatitis A Antibody IgM Nonreactive (Nonreactive); ~Hepatitis B Surface Antibody NONREACTIVE (Nonreactive); ~Hepatitis C Antibody Nonreactive (Nonreactive)
[2023-04-30 22:33] LABS: TS Negative Control Passed; TS Panel A 0; TS Panel B 0; TS Positive Control Passed; TSpotTB Negative (Negative)
== END 2023-04-28 09:50 | disposition home or self-care (01) ==
LOC: HO.LAB 09:49
PROVIDERS: PCP Internal Medicine; Visit Provider Student in an Organized Health Care Education/Training Program
DX: Z11.7 Encounter for testing for latent tuberculosis infection (principal); Z11.59 Encounter for screening for other viral diseases; M06.9 Rheumatoid arthritis, unspecified
CPT/HCPCS: 36415; 80053; 85025; 85652; 86140; 86481; 86704; 86706; 86709; 86803; 87340

== ENCOUNTER → 2023-05-04 10:54 | Outpatient (BNVA) | payer OTHER, SELFPAY | PROVIDERS: PCP Internal Medicine; Visit Provider Internal Medicine ==

== ENCOUNTER → 2023-05-12 12:55 | Outpatient (BNVA) | payer OTHER, SELFPAY | PROVIDERS: PCP Internal Medicine; Visit Provider Urology | DX: R31.29 Other microscopic hematuria (principal); N39.0 Urinary tract infection, site not specified | CPT/HCPCS: 52000 ==

== ENCOUNTER 2023-07-26 10:28 | Outpatient (AMB) | payer OTHER, SELFPAY ==
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
[2023-07-26 10:47] VITALS: BP 120/72; PULSE 55; TEMP 36.3; O2SAT 98; BMI 29.8
== END 2023-07-26 12:50 | disposition home or self-care (01) ==
PROVIDERS: PCP Internal Medicine; Visit Provider Student in an Organized Health Care Education/Training Program
DX: M06.9 Rheumatoid arthritis, unspecified (principal); M17.12 Unilateral primary osteoarthritis, left knee; Z79.899 Other long term (current) drug therapy
CPT/HCPCS: 99214

== ENCOUNTER 2023-07-26 10:28 | Outpatient (REF) | payer OTHER, SELFPAY ==
[2023-07-26 11:45] LABS: MANUAL DIFF FLAG NO
[2023-07-26 12:01] LABS: Basophils Percent Auto 0.4 % (0-2); Eosinophils Absolute Auto 0.1 X10*3/uL (0.0-0.4); Eosinophils Percent Auto 1.3 % (0-4); Hematocrit 41.6 % (37.0-47.0); Hemoglobin 13.2 g/dl (12.0-16.0); Imm Gran Abs Auto 0.03 X10*3/uL (0.00-0.03); Imm Gran Pct Auto 0.4 % (0.0-0.4); Lymphocytes Absolute Auto 1.8 X10*3/uL (1.2-4.9); Lymphocytes Percent Auto 22.4 % (20-40); Mean Corpuscular HGB Conc 31.7 g/dl (31.0-35.0); Mean Corpuscular Hemoglobin 29.1 pg (27.0-33.0); Mean Corpuscular Volume 91.8 fL (80.0-98.0); Mean Platelet Volume 10.1 fL (9.4-12.3); Monocytes Absolute Auto 0.5 X10*3/uL (0.1-1.2); Monocytes Percent Auto 6.8 % (2-11); Neutrophils Absolute Auto 5.5 x10*3/uL (2.0-8.3); Neutrophils Percent Auto 68.7 % (45-73); Platelet Count 324 X10*3/uL (160-400); Red Blood Count 4.53 X10*6/uL (4.20-5.50); Red Cell Distribution Width 13.7 % (11.0-16.0); White Blood Count 7.9 X10*3/uL (4.8-10.8)
[2023-07-26 12:21] LABS: Alanine Aminotransferase 8 U/L (0-31); Aspartate Amino Transferase 20 U/L (5-31); C Reactive Protein 0.75 mg/dL (< or = 0.50)
[2023-07-26 12:26] LABS: Alanine Aminotransferase 8 U/L (0-31); Albumin Level 4.3 g/dL (3.5-5.0); Alkaline Phosphatase 103 U/L (39-117); Anion Gap 13 (12-20); Aspartate Amino Transferase 18 U/L (5-31); Bilirubin Total 0.3 mg/dL (0.0-1.0); Blood Urea Nitrogen 18 mg/dL (9-16); C Reactive Protein 0.72 mg/dL (< or = 0.50); Calcium 9.9 mg/dL (8.4-10.2); Carbon Dioxide 27 mmol/L (22-29); Chloride 103 mmol/L (96-108); Estimated Glomerular Filt Rate > 60; Glucose Random 91 mg/dL (60-115); Potassium 4.1 mmol/L (3.3-5.1); Sodium 139 mmol/L (135-145); Total Protein 8.4 g/dL (6.5-8.0)
[2023-07-26 12:39] LABS: Erythrocyte Sedimentation Rate 44 MM/HR (0-20)
== END 2023-07-26 10:29 | disposition home or self-care (01) ==
LOC: HO.LAB 10:28
PROVIDERS: Nurse Practitioner Family; PCP Internal Medicine; Visit Provider Student in an Organized Health Care Education/Training Program
DX: M06.9 Rheumatoid arthritis, unspecified (principal); M17.12 Unilateral primary osteoarthritis, left knee; Z79.899 Other long term (current) drug therapy
CPT/HCPCS: 36415; 80053; 84450; 84460; 85025; 85652; 86140; 99212

== ENCOUNTER 2023-08-18 09:14 | Emergency (ER) | payer OTHER, SELFPAY ==
--- NOTE | ~2023-08-18 | CT_ITS ---
EXAMINATION: CT ABDOMEN AND PELVIS WITHOUT CONTRAST CLINICAL INFORMATION: Left lower quadrant tenderness. COMPARISON: 04/05/2022 TECHNIQUE: Multidetector volumetric imaging was performed from the superior aspect of the liver through the pubic symphysis. Sagittal and coronal reformatted images were obtained on the technologist's workstation. This CT examination was performed using dose optimization techniques as appropriate, variously including the following: *Automated exposure control *Adjustment of mA and/or kV according to patient size (this includes techniques or standardized protocols for targeted exams where dose is matched to indication/reason for exam; i.e. extremities or head) *Use of iterative reconstruction technique DLP: 528 mGy-cm FINDINGS: LUNG BASES: The visualized lung bases are unremarkable. LIVER, GALLBLADDER, AND BILIARY TREE: The noncontrast liver is normal in size and contour. No biliary ductal dilatation is present. The gallbladder is unremarkable with no evidence of radiopaque gallstones, gallbladder wall thickening, or obvious pericholecystic inflammatory changes. PANCREAS: Unremarkable. SPLEEN: Unremarkable. ADRENAL GLANDS: Unremarkable. KIDNEYS AND URETERS: The kidneys are symmetric in size. No renal calculus. No hydronephrosis or perinephric stranding. BLADDER: Possible cystocele. GASTROINTESTINAL TRACT: Small and large bowel loops are of normal caliber. Moderate fecal retention in the colon. No small bowel obstruction. Appendix is within normal limits. ABDOMINAL WALL: No significant hernia is appreciated. LYMPH NODES: No bulky abdominal or pelvic lymphadenopathy. VASCULAR: Normal caliber abdominal aorta. PELVIC VISCERA: Uterus is surgically absent. OSSEOUS STRUCTURES: No destructive bone lesions. CT/CT abdomen pelvis wo IV con IMPRESSION: No acute abnormality in the abdomen or pelvis.
[2023-08-18 09:18] VITALS: BP 128/61; PULSE 65; RESP 19; TEMP 36.6; O2SAT 98; BMI 30.2
[2023-08-18 09:34] LABS: MANUAL DIFF FLAG NO
[2023-08-18 09:37] LABS: Appearance Urine Clear; Color Urine Yellow; Glucose Urine UA Negative (Negative); Leukocyte Esterase Urine Large (3+) (Negative); Nitrite Urine Negative (Negative); PH 5.5 (5.0-9.0); Specific Gravity - Urine 1.015 (1.005-1.025); UMIC TRIGGER UACC YES; Urine Blood Moderate (2+) (Negative); Urine Ketones Negative (Negative); Urine Protein Negative (Neg-Trace)
[2023-08-18 09:38] LABS: Basophils Percent Auto 0.6 % (0-2); Eosinophils Absolute Auto 0.1 X10*3/uL (0.0-0.4); Eosinophils Percent Auto 1.1 % (0-4); Hematocrit 40.8 % (37.0-47.0); Hemoglobin 13.1 g/dl (12.0-16.0); Imm Gran Abs Auto 0.03 X10*3/uL (0.00-0.03); Imm Gran Pct Auto 0.4 % (0.0-0.4); Lymphocytes Absolute Auto 1.7 X10*3/uL (1.2-4.9); Lymphocytes Percent Auto 23.7 % (20-40); Mean Corpuscular HGB Conc 32.1 g/dl (31.0-35.0); Mean Corpuscular Hemoglobin 29.4 pg (27.0-33.0); Mean Corpuscular Volume 91.7 fL (80.0-98.0); Mean Platelet Volume 9.9 fL (9.4-12.3); Monocytes Absolute Auto 0.6 X10*3/uL (0.1-1.2); Monocytes Percent Auto 8.9 % (2-11); Neutrophils Absolute Auto 4.6 x10*3/uL (2.0-8.3); Neutrophils Percent Auto 65.3 % (45-73); Platelet Count 323 X10*3/uL (160-400); Red Blood Count 4.45 X10*6/uL (4.20-5.50); Red Cell Distribution Width 13.6 % (11.0-16.0)
[2023-08-18 09:47] LABS: Bacteria Urine None Seen (None Seen); Hyaline Casts Urine 0-2 /LPF (0-2); UACC Culture Trigger YES; WBC Urine 21-50 /HPF (0-5)
[2023-08-18 09:55] LABS: Alanine Aminotransferase 12 U/L (0-31); Alkaline Phosphatase 100 U/L (39-117); Anion Gap 14 (12-20); Aspartate Amino Transferase 23 U/L (5-31); Bilirubin Direct 0.1 mg/dL (0.0-0.5); Bilirubin Total 0.4 mg/dL (0.0-1.0); Blood Urea Nitrogen 16 mg/dL (9-16); Calcium 9.7 mg/dL (8.4-10.2); Carbon Dioxide 26 mmol/L (22-29); Chloride 105 mmol/L (96-108); Creatinine Clr Calc Pharmacy 63.5; Estimated Glomerular Filt Rate > 60; Glucose Random 78 mg/dL (60-115); Lipase 14 U/L (8-78); Sodium 141 mmol/L (135-145)
--- NOTE | 2023-08-18 13:30 | ED.GENADULT ---
HPI - General Adult General Chief complaint: Abdominal Pain Stated complaint: abd pain Time Seen by Provider: 08/18/23 15:28 Source: patient Mode of arrival: ambulatory Limitations: no limitations History of Present Illness HPI narrative: a 62-year-old female came in for evaluation of left lower quadrant abdominal pain started about a month ago pain is intermittent comes and goes no clear exacerbating factors or relieving factor, pain been going for the past months with no fever or chills, the pain was associated with nausea but no vomiting patient had a normal bowel movement, patient noticed dysuria and frequency urination for the past 2-3 days, no vaginal bleed or discharge. Patient had a normal colonoscopy a year ago. Related Data Home Medications Medication Instructions Recorded Confirmed cyclobenzaprine 10 mg tablet 10 mg PO TID 08/26/20 07/26/23 amitriptyline 25 mg tablet 25 mg PO BEDTIME 09/24/22 07/26/23 Previous Rx's Medication Instructions Recorded lcoaomsaty-gtkwknysjgpwu-oiyvxyri 1 tab PO Q6H PRN pain 30 days #30 02/26/22 50 mg-325 mg-40 mg tablet tabs Shower Chair #1 ea 04/06/22 epinephrine 0.3 mg/0.3 mL 0.3 mg (0.3 mL) IM Q10M PRN 08/27/22 injection, auto-injector anaphylaxis #2 ea acetaminophen 500 mg tablet 500 mg PO Q6H PRN fever or pain 30 10/01/22 (Tylenol Extra Strength) days #120 tabs doxycycline hyclate 100 mg tablet 100 mg PO BID 3 days #6 tabs 05/12/23 estradiol 0.01% (0.1 mg/gram) See Rx Instructions .Route .qhs 05/12/23 vaginal cream (Estrace) complicated uti 30 days #42.5 grams adalimumab 40 mg/0.8 mL 40 mg (0.8 mL) subcut Q2W #2 ea 06/30/23 subcutaneous pen kit (Humira Pen) nitrofurantoin 100 mg PO BID 7 days #14 caps 08/18/23 monohydrate/macrocrystals 100 mg capsule (Macrobid) Allergies Allergy/AdvReac Type Severity Reaction Status Date / Time ciprofloxacin Allergy Severe Joint Pain Verified 08/18/23 09:18 naproxen [NAPROXEN] Allergy Severe STOMACH Verified 08/18/23 09:18 BLEED, bleeding, bleeding nitrofurantoin Allergy Severe Rash Verified 08/18/23 09:18 meloxicam [MELOXICAM] Allergy Intermediate RASH, hives Verified 08/18/23 09:18 prednisone [PREDNISONE] Allergy Intermediate SWELLING Verified 08/18/23 09:18 pregabalin [From LYRICA] Allergy Intermediate SHORTNESS Verified 08/18/23 09:18 OF BREATH Sulfa (Sulfonamide Allergy Intermediate hives Verified 08/18/23 09:18 Antibiotics) trimethoprim [From BACTRIM] Allergy Intermediate RASH Verified 08/18/23 09:18 oxycodone [From PERCOCET] Allergy Mild RASH Verified 08/18/23 09:18 Penicillins [PENICILLINS] Allergy Mild RASH Verified 08/18/23 09:18 Review of Systems Review of Systems: All other systems are reviewed and are negative Constitutional: Reports as per HPI and Reports no additional constitutional complaints Eyes: Reports as per HPI and Reports no additional eye complaints Reports system reviewed and no additional complaints, except as documented Cardiovascular: Reports as per HPI and Reports no additional cardiovascular complaints Respiratory: Reports as per HPI and Reports no additional respiratory complaints Gastrointestinal: Reports as per HPI and Reports no additional gastrointestinal complaints Genitourinary: Reports no additional female genitourinary complaints Musculoskeletal: Reports no additional musculoskeletal complaints Skin/Breast: Reports system reviewed and no additional complaints, except as docu Psychiatric: Reports no additional psychiatric complaints Endocrine: Reports no additional endocrine complaints Hematologic/Lymphatic: Reports no additional hematologic/lymphatic complaints Allergic/Immunologic: Reports no additional allergic/immunologic complaints Reports system reviewed and no additional complaints, except as documented and Reports Abnormal speech present [facility] Past Medical History Medical History (Updated 08/18/23 @ 16:27 by Abiel Goncalves MD) Encounter for testing for latent tuberculosis infection Renal cyst, acquired, left Chronic lower urinary tract infection Chest pain Infectious diarrhea Left knee pain Hematochezia Pure hypercholesterolemia 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 GERD (gastroesophageal reflux disease) Migraines Surgical History Hx of hysterectomy History of total abdominal hysterectomy Family History Family History Father Hypertension CVD (cardiovascular disease) Mother Hypertension Diabetes Cancer Paternal Grandmother Cancer Brother Colon cancer Social History Social History Housing: Apartment Alcohol intake: current Alcohol intake frequency: holidays/special occasions only Alcohol type: wine Patient Tobacco Use Status: Never used Tobacco e-Cigarette/Vaping Use: Never Used Second Hand Smoke Exposure: No service: No Current occupational status: unemployed Cognitive needs: No Hearing needs: No Vision needs: Yes (glasses ) Physical Exam ED Vital Signs: Vital Signs - 24 hr 08/18/23 09:18 08/18/23 13:31 Temperature 98 F 98 F Pulse Rate 65 68 Respiratory Rate 19 17 Blood Pressure 128/61 134/58 L Pulse Oximetry 98 98 Oxygen Delivery Method Room Air BMI result Body Mass Index 30.2 Vital signs have been reviewed and appear to be correct. Blood pressure elevated. Heart rate normal. Respiratory rate normal. Temperature normal. Oxygen saturation normal. Appearance: Alert. Oriented X3. No acute distress. Head: Normal external exam. Normocephalic. Atraumatic. No Bonilla signs noted. No raccoon eyes noted Eyes: PERRLA. EOMI. Conjunctiva and sclera normal. Eyelids normal. ENT: TM's Normal. Pharynx normal. Uvula midline. Moist mucous membranes. No trismus noted. No drooling noted. No muffled voice noted. Neck: Normal inspection. Neck supple. FROM. No adenopathy. Thyroid Normal. No meningeal signs. No neck mass noted. CVS: Normal heart rate and rhythm. Heart sound normal. No murmurs noted. Pulses normal throughout. Respiratory: No respiratory distress. Painless inspiration. Breath sounds normal. No wheezes/rales/rhonchi noted. Chest nontender. No accessory muscle usage noted or decreased air movement noted. Abdomen: Soft and nontender. Bowel sounds normal in all 4 quadrants. No distention noted. No organomegaly noted. No visible injury noted. Back: No CVA tenderness. Full range of motion noted. Skin: Skin warm and dry. Normal skin color. Normal skin turgor. No rashes/lesions/lacerations noted. Extremities: No lower extremity edema. Extremities exhibit normal range of motion. Extremities nontender. Neuro: Oriented X 3. Cranial nerve exam: II-XII are grossly intact No motor deficit. No sensory deficit. Reflexes normal. Course Course Course Narrative: This is a rapid medical exam: Additional HPI, ROS, PE not included below will be deferred to primary provider. Patient triaged prior to this provider's shift. Patient now in triage room for reassessment. Patient is a 62-year-old female presenting to the emergency department with complaint of LLQ abdominal pain for the past month, worsening over the past few days. Reports nausea and vomiting started yesterday. Denies fevers but reports chills. LLQ tenderness noted. States has known cyst to left kidney. Plan: CT abdomen/pelvis Reevaluation(s) Reevaluation #1: Intermittent abdominal pain for a month, with dysuria and frequency urination, CT of the abdomen pelvis is showing no acute pathology, labs are unremarkable except for evidence of UTI will start the patient on Macrobid was instructed to drink plenty of fluids. Time: 16:24 Medical Decision Making Differential Diagnosis Differential Diagnoses: The differential diagnosis associated with the presentation includes ( Acute appendicitis, colitis, diverticulitis, pancreatitis, UTI, pyelonephritis, severe electrolyte abnormality, severe anemia.) Admission/Observation Consideration of admission/observation: Escalation of care including admission/observation considered Lab Data MDM Lab Attestation statement: I reviewed the patient's lab results. 08/18/23 09:29 08/18/23 09:29 Labs: Lab Results 08/18/23 Range/Units 09:29 WBC 7.0 (4.8-10.8) X10*3/uL RBC 4.45 (4.20-5.50) X10*6/uL Hgb 13.1 (12.0-16.0) g/dl Hct 40.8 (37.0-47.0) % MCV 91.7 (80.0-98.0) fL MCH 29.4 (27.0-33.0) pg MCHC 32.1 (31.0-35.0) g/dl RDW 13.6 (11.0-16.0) % Plt Count 323 (160-400) X10*3/uL MPV 9.9 (9.4-12.3) fL Immature Gran % (Auto) 0.4 (0.0-0.4) % Neut % (Auto) 65.3 (45-73) % Lymph % (Auto) 23.7 (20-40) % Hettinger % (Auto) 8.9 (2-11) % Eos % (Auto) 1.1 (0-4) % Baso % (Auto) 0.6 (0-2) % Lymph # (Auto) 1.7 (1.2-4.9) X10*3/uL Hettinger # (Auto) 0.6 (0.1-1.2) X10*3/uL Eos # (Auto) 0.1 (0.0-0.4) X10*3/uL Baso # (Auto) 0.0 (0.0-0.2) X10*3/uL Abs Immat Gran (auto) 0.03 (0.00-0.03) X10*3/uL Absolute Neuts (auto) 4.6 (2.0-8.3) x10*3/uL Absolute Nucleated RBC 0.000 (0.0-0.012) X10*3/uL Nucleated RBC % (auto) 0.0 (0.0-0.2) /100WBC Sodium 141 (135-145) mmol/L Potassium 4.0 (3.3-5.1) mmol/L Chloride 105 (96-108) mmol/L Carbon Dioxide 26 (22-29) mmol/L Anion Gap 14 (12-20) BUN 16 (9-16) mg/dL Creatinine 0.87 (0.5-1.4) mg/dL Estim Creat Clear Calc 63.5 Estimated GFR > 60 Random Glucose 78 (60-115) mg/dL Calcium 9.7 (8.4-10.2) mg/dL Total Bilirubin 0.4 (0.0-1.0) mg/dL Direct Bilirubin 0.1 (0.0-0.5) mg/dL AST 23 (5-31) U/L ALT 12 (0-31) U/L Alkaline Phosphatase 100 (39-117) U/L Total Protein 8.0 (6.5-8.0) g/dL Albumin 4.0 (3.5-5.0) g/dL Lipase 14 (8-78) U/L Urine Color Yellow Urine Appearance Clear Urine pH 5.5 (5.0-9.0) Ur Specific [place] 1.015 (1.005-1.025) Urine Protein Negative (Neg-Trace) mg/dL Urine Glucose (UA) Negative (Negative) mg/dL Urine Ketones Negative (Negative) mg/dL Urine Blood Moderate (2+) H (Negative) Urine Nitrite Negative (Negative) Ur Leukocyte Esterase Large (3+) H (Negative) Urine RBC 11-20 H (0-2) /HPF Urine WBC 21-50 H (0-5) /HPF Ur Squamous Epith Cells 6-10 (0-2) /HPF Urine Bacteria None Seen (None Seen) Hyaline Casts 0-2 (0-2) /LPF Independent Interpretation I performed an independent interpretation of an: CT Scan ( Abdomen pelvis: No acute intra-abdominal pathology.) Radiology Impression Discussion of test interpretation with radiology: I have reviewed the radiologist's reading. Discharge Plan Discharge Clinical Impression: Abdominal pain in female Urinary tract infection Qualifiers: Urinary tract infection type: site unspecified Hematuria presence: without hematuria Qualified Code(s): N39.0 - Urinary tract infection, site not specified Patient Disposition: Home, Self-Care Instructions: Urinary Tract Infection in Women (ED) Prescriptions: New nitrofurantoin monohyd/m-cryst [Macrobid] 100 mg capsule 100 mg PO BID 7 Days Qty: 14 0RF Rx Instructions: must administer with a meal/food No Action wajneqrvhi-khrzjvvvjmaim-kptl 50-325-40 mg tablet 1 tab PO Q6H PRN (Reason: pain) 30 Days Qty: 30 0RF (DME) Shower Chair Misc See Rx Instructions .Route Qty: 1 0RF Rx Instructions: Shower chair size small acetaminophen [Tylenol Extra Strength] 500 mg tablet 500 mg PO Q6H PRN (Reason: fever or pain) 30 Days Qty: 120 3RF Humira Pen 40 mg/0.8 mL pen injector kit 40 mg subcut Q2W Qty: 2 3RF cyclobenzaprine 10 mg tablet 10 mg PO TID amitriptyline 25 mg tablet 25 mg PO BEDTIME epinephrine 0.3 mg/0.3 mL auto-injector 0.3 mg IM Q10M PRN (Reason: anaphylaxis) Qty: 2 0RF Rx Instructions: for 2 doses lidocaine HCl 2 % jelly in applicator 10 ml intra-urethral ONCE Qty: 10 0RF doxycycline hyclate 100 mg tablet 100 mg PO BID 3 Days Qty: 6 0RF estradiol [Estrace] 0.01 % (0.1 mg/gram) cream See Rx Instructions .ROUTE .qhs 30 Days Qty: 42.5 3RF Rx Instructions: pea sized amount per urethra QHS; Referrals: Paz Robert MD [Primary Care Provider] -
[2023-08-18 13:31] VITALS: BP 134/58; PULSE 68; RESP 17; TEMP 36.6; O2SAT 98
== END 2023-08-18 16:48 | disposition home or self-care (01) ==
PROVIDERS: Emergency Provider Emergency Medicine; PCP Internal Medicine
DX: N39.0 Urinary tract infection, site not specified (principal); R10.32 Left lower quadrant pain; E78.00 Pure hypercholesterolemia, unspecified; Z79.899 Other long term (current) drug therapy
CPT/HCPCS: 36415; 74176; 80048; 80076; 81001; 83690; 85025; 87086; 99284

== ENCOUNTER 2023-10-18 08:07 | Outpatient (REF) | payer OTHER, SELFPAY ==
[2023-10-18 08:44] LABS: MANUAL DIFF FLAG NO
[2023-10-18 08:54] LABS: Basophils Percent Auto 0.4 % (0-2); Eosinophils Absolute Auto 0.2 X10*3/uL (0.0-0.4); Eosinophils Percent Auto 2.3 % (0-4); Hematocrit 42.3 % (37.0-47.0); Hemoglobin 13.7 g/dl (12.0-16.0); Imm Gran Abs Auto 0.03 X10*3/uL (0.00-0.03); Imm Gran Pct Auto 0.4 % (0.0-0.4); Lymphocytes Absolute Auto 1.7 X10*3/uL (1.2-4.9); Lymphocytes Percent Auto 22.6 % (20-40); Mean Corpuscular HGB Conc 32.4 g/dl (31.0-35.0); Mean Corpuscular Volume 89.6 fL (80.0-98.0); Mean Platelet Volume 9.9 fL (9.4-12.3); Monocytes Absolute Auto 0.6 X10*3/uL (0.1-1.2); Monocytes Percent Auto 7.8 % (2-11); Neutrophils Percent Auto 66.5 % (45-73); Platelet Count 287 X10*3/uL (160-400); Red Blood Count 4.72 X10*6/uL (4.20-5.50); Red Cell Distribution Width 13.4 % (11.0-16.0); White Blood Count 7.5 X10*3/uL (4.8-10.8)
[2023-10-18 09:11] LABS: Alanine Aminotransferase 10 U/L (0-31); Albumin Level 4.1 g/dL (3.5-5.0); Alkaline Phosphatase 97 U/L (39-117); Anion Gap 10 (12-20); Aspartate Amino Transferase 18 U/L (5-31); Bilirubin Total 0.7 mg/dL (0.0-1.0); Blood Urea Nitrogen 13 mg/dL (9-16); C Reactive Protein 0.91 mg/dL (< or = 0.50); Calcium 9.8 mg/dL (8.4-10.2); Carbon Dioxide 29 mmol/L (22-29); Chloride 103 mmol/L (96-108); Estimated Glomerular Filt Rate > 60; Glucose Random 97 mg/dL (60-115); Sodium 138 mmol/L (135-145); Total Protein 8.1 g/dL (6.5-8.0)
[2023-10-18 09:45] LABS: Erythrocyte Sedimentation Rate 44 MM/HR (0-20)
== END 2023-10-18 08:08 | disposition home or self-care (01) ==
LOC: HO.LAB 08:07
PROVIDERS: PCP Internal Medicine; Visit Provider Student in an Organized Health Care Education/Training Program
DX: M06.9 Rheumatoid arthritis, unspecified (principal)
CPT/HCPCS: 36415; 80053; 85025; 85652; 86140

== ENCOUNTER 2023-10-26 10:13 | Outpatient (AMB) | payer OTHER, SELFPAY ==
--- NOTE | 2023-10-26 10:16 | A.OFFVIS_ITS ---
Intake Vital Signs 10/26/23 10:19 Height 5 ft 2 in Weight 160 lb 14.999 oz BMI 29.4 BP 116/74 Blood Pressure Location Rt brachial Position Sitting Pulse 68 Pulse Source Pulse Oximeter Temp 96.7 F L Temp Source Skin Pulse Oximetry (%) 98 Oxygen Delivery Method Room Air Intake Visit Reasons: RA Intake Note: Pt last seen 07/26/23, presents today for follow up and test results. On Humira every other week. C/o back pain that radiates down both legs. She is requesting a brace for support. 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 Accompanied by: Self / Same As Patient Allergies ciprofloxacin Allergy (Severe, Verified 10/26/23 10:22) Joint Pain naproxen [NAPROXEN] Allergy (Severe, Verified 10/26/23 10:22) STOMACH BLEED, bleeding, bleeding nitrofurantoin Allergy (Severe, Verified 10/26/23 10:22) Rash meloxicam [MELOXICAM] Allergy (Intermediate, Verified 10/26/23 10:22) RASH, hives prednisone [PREDNISONE] Allergy (Intermediate, Verified 10/26/23 10:22) SWELLING pregabalin [From LYRICA] Allergy (Intermediate, Verified 10/26/23 10:22) SHORTNESS OF BREATH Sulfa (Sulfonamide Antibiotics) Allergy (Intermediate, Verified 10/26/23 10:22) hives trimethoprim [From BACTRIM] Allergy (Intermediate, Verified 10/26/23 10:22) RASH oxycodone [From PERCOCET] Allergy (Mild, Verified 10/26/23 10:22) RASH Penicillins [PENICILLINS] Allergy (Mild, Verified 10/26/23 10:22) RASH Medication List - Last Reconciled 10/26/23 by Seth Billings MD acetaminophen (Tylenol Extra Strength) 500 mg PO Q6H PRN 30 days adalimumab (Humira Pen) 40 mg (0.8 mL) subcut Q2W amitriptyline 25 mg PO BEDTIME zpxyshekvg-qwbkcdmklqagp-pscr 50-325-40 mg 1 tab PO Q6H PRN 30 days cyclobenzaprine 10 mg PO TID PRN epinephrine 0.3 mg (0.3 mL) IM Q10M PRN estradiol 0.01%(0.1mg/gram) (Estrace) pea sized amount per urethra QHS; 30 days Shower Chair Shower chair size small HPI HPI Comments History of Present Illness Details 62 y/o female presents for follow-up of Seropositive RA (-ve RF +CCP). Patient is on Humira every other week. She states that she is doing about the same overall. Continues to get intermittent pain and swelling of her wrists, fingers associated with weakness and difficulty gripping objects. Intermittent pain of her neck, shoulders, back. She states that she does very well the 1st few days after taking the Humira and starts to have recurrent pain 3-4 days before the next Humira dose. 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 GERD (gastroesophageal reflux disease) Migraines Surgical History Hx of hysterectomy History of total abdominal hysterectomy Family History Father Hypertension CVD (cardiovascular disease) Mother Hypertension Diabetes Cancer Paternal Grandmother Cancer Brother Colon cancer Social History Housing: Apartment Alcohol intake: current Alcohol intake frequency: holidays/special occasions only Alcohol type: wine Patient Tobacco Use Status: Never used Tobacco e-Cigarette/Vaping Use: Never Used Second Hand Smoke Exposure: No service: No Current occupational status: unemployed Cognitive needs: No Hearing needs: No Vision needs: Yes (glasses ) Review of Systems ENT Reports neck pain Musc Reports back pain, Reports arthralgias, Reports joint swelling, Reports muscle weakness, Reports neck pain and Reports stiffness Physical Exam Vital Signs: Last Vital Signs Temp 96.7 F L 10/26/23 10:19 Pulse 68 10/26/23 10:19 BP 116/74 10/26/23 10:19 Pulse Ox 98 10/26/23 10:19 Oxygen Delivery Method Room Air 10/26/23 10:19 BMI result Body Mass Index 29.4 Const General: cooperative, healthy appearing and comfortable Nutritional Appearance: overweight Orientation/consciousness: patient oriented x3 Limitations: no limitations HEENT Head: Yes normocephalic and Yes atraumatic Mouth: moist mucous membranes Resp Effort & Inspection: normal respiratory effort and able to speak in complete sentences Auscultation: clear to auscultation bilaterally Neuro General: patient oriented x3 Extrem Other: Bilateral wrist pain with full flexion Minimal left wrist swelling Normal range of motion of both shoulders and elbows with no pain Left knee pain with full flexion and extension associated with crepitus . Negative MTP squeeze test bilateral Results Reviewed Results Reviewed: Assessment & Plan Assessment & Plan (1) Rheumatoid arthritis: Comment: -ve RF + CCP Methotrexate: 10/2018-07/2019-p.o. and subcutaneous- GI upset Humira: 02/15/2020- present Code(s): M06.9 - Rheumatoid arthritis, unspecified Qualifiers: Rheumatoid arthritis location: multiple sites Rheumatoid factor presence: unspecified presence Qualified Code(s): M06.9 - Rheumatoid arthritis, unspecified Plan: This is a 62-year-old female with seropositive RA who presents for follow-up. She is on Humira 40 mg every other week. Patient continues to have intermittent swollen and tender joints as well as elevated inflammatory markers. Humira works well for a few days after injection and its efficacy fades 3-4 days before next injection. Advance Humira to 40 mg every week Check bilateral hand, ankles and feet x-rays to evaluate for erosive disease. Hepatitis screening negative Patient apparently had a positive tuberculin test but a negative T spot 04/2023 Chest CTA 2020 showed no signs of tuberculosis Labs before next visit in 3 months (2) Osteoarthritis of left knee: Code(s): M17.12 - Unilateral primary osteoarthritis, left knee Qualifiers: Osteoarthritis type: primary Qualified Code(s): M17.12 - Unilateral primary osteoarthritis, left knee Plan: Advised patient to try using Voltaren gel 4 times a day for her left knee pain. 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 Plan: Hold Humira with any signs of infection until infection resolves Plan I spent 25 minutes reviewing patient's chart, evaluating patient, ordering diagnostic workup, counseling patient and documenting in the chart Orders: Orders XR hand wrist LT Today M06.9 - Rheumatoid arthritis, unspecified XR hand wrist RT Today M06.9 - Rheumatoid arthritis, unspecified XR ankle RT min 3V Today M06.9 - Rheumatoid arthritis, unspecified XR ankle LT min 3V Today M06.9 - Rheumatoid arthritis, unspecified XR foot RT min 3V Today M06.9 - Rheumatoid arthritis, unspecified Complete Blood Count Auto Diff 3 Months M06.9 - Rheumatoid arthritis, unspecified Comprehensive Met. Panel 3 Months M06.9 - Rheumatoid arthritis, unspecified C Reactive Protein 3 Months M06.9 - Rheumatoid arthritis, unspecified Erythrocyte Sedimentation Rate 3 Months M06.9 - Rheumatoid arthritis, unspecified XR foot LT min 3V Today M06.9 - Rheumatoid arthritis, unspecified Coding Level of Care Code Est Pt Level 4 (39519) Diagnoses Rheumatoid arthritis involving multiple sites, unspecified whether rheumatoid factor present M06.9 Rheumatoid arthritis location: multiple sites Rheumatoid factor presence: unspecified presence Primary osteoarthritis of left knee M17.12 Osteoarthritis type: primary High risk medication use Z79.899
[2023-10-26 10:19] VITALS: BP 116/74; PULSE 68; TEMP 35.9; O2SAT 98; BMI 29.4
== END 2023-10-26 10:57 | disposition home or self-care (01) ==
PROVIDERS: PCP Internal Medicine; Visit Provider Student in an Organized Health Care Education/Training Program
DX: M06.9 Rheumatoid arthritis, unspecified (principal); M17.12 Unilateral primary osteoarthritis, left knee; Z79.899 Other long term (current) drug therapy
CPT/HCPCS: 99214

== ENCOUNTER → 2023-10-26 10:13 | Outpatient (BNVA) | payer OTHER, SELFPAY | PROVIDERS: PCP Internal Medicine; Visit Provider Student in an Organized Health Care Education/Training Program | DX: M06.9 Rheumatoid arthritis, unspecified (principal); M17.12 Unilateral primary osteoarthritis, left knee; Z79.899 Other long term (current) drug therapy | CPT/HCPCS: 99212 ==

== ENCOUNTER 2023-10-27 10:12 | Outpatient (AMB) | payer OTHER, SELFPAY ==
[2023-10-27 10:23] VITALS: BP 122/68; BMI 28.7
--- NOTE | 2023-10-27 10:23 | MHC.PC.OV ---
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 Required: No Accompanied by: Self / Same As Patient Allergies ciprofloxacin Allergy (Severe, Verified 10/27/23 10:30) Joint Pain naproxen [NAPROXEN] Allergy (Severe, Verified 10/27/23 10:30) STOMACH BLEED, bleeding, bleeding nitrofurantoin Allergy (Severe, Verified 10/27/23 10:30) Rash meloxicam [MELOXICAM] Allergy (Intermediate, Verified 10/27/23 10:30) RASH, hives prednisone [PREDNISONE] Allergy (Intermediate, Verified 10/27/23 10:30) SWELLING pregabalin [From LYRICA] Allergy (Intermediate, Verified 10/27/23 10:30) SHORTNESS OF BREATH Sulfa (Sulfonamide Antibiotics) Allergy (Intermediate, Verified 10/27/23 10:30) hives trimethoprim [From BACTRIM] Allergy (Intermediate, Verified 10/27/23 10:30) RASH oxycodone [From PERCOCET] Allergy (Mild, Verified 10/27/23 10:30) RASH Penicillins [PENICILLINS] Allergy (Mild, Verified 10/27/23 10:30) RASH Medication List - Last Reconciled 10/27/23 by Paz Walters MD acetaminophen (Tylenol Extra Strength) 500 mg PO Q6H PRN 30 days amitriptyline 25 mg PO BEDTIME fqhnngelbv-yzrjdeokznkql-cizl 50-325-40 mg 1 tab PO Q6H PRN 30 days cyclobenzaprine 10 mg PO TID PRN epinephrine 0.3 mg (0.3 mL) IM Q10M PRN estradiol 0.01%(0.1mg/gram) (Estrace) pea sized amount per urethra QHS; 30 days Humira Pen (adalimumab) 40 mg (0.8 mL) subcut QWEEK NS Shower Chair Shower chair size small Tobacco use date assessed: 02/07/23 Dental Screening Dental Screen Date: 10/27/23 Did you have a dental visit in the last 12 months?: No Did you have a dental problem in the last 6 months where you did not have access to dental care?: No Was dental information given to patient?: Patient has dentist HPI HPI Comments History of Present Illness Details This is a 62-year-old female with rheumatoid arthritis and Arnold Chiari malformation const for physical exam. From a 30 arthritis stable with methotrexate. Rafael followed by Urology. No neurological deficit. Last colonoscopy at [facility] 2019 and was normal. Mammogram done 2022 was normal. No need for Pap smears due to hysterectomy. No chest pain or shortness of breath. 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 GERD (gastroesophageal reflux disease) Migraines Surgical History Hx of hysterectomy History of total abdominal hysterectomy Family History Father Hypertension CVD (cardiovascular disease) Mother Hypertension Diabetes Cancer Paternal Grandmother Cancer Brother Colon cancer Social History Housing: Apartment Alcohol intake: current Alcohol intake frequency: holidays/special occasions only Alcohol type: wine Patient Tobacco Use Status: Never used Tobacco e-Cigarette/Vaping Use: Never Used Second Hand Smoke Exposure: No service: No Current occupational status: unemployed Cognitive needs: No Hearing needs: No Vision needs: Yes (glasses ) Questionnaire Thrive Questionnaire Date Thrive assessed: 02/07/23 NISH-7 AMB Questionnaire NISH-7 Date NISH - 7 assessed: 02/07/23 Source: Developed by Drs. Red Arce, Julianna Woodard, Pablo Powers and colleagues, with an educational elvia from [employer]. Review of Systems Const All systems reviewed & are unremarkable except as noted in HPI and below Eyes Reports no additional complaints, Denies change in vision and Denies other visual disturbances Card Denies chest pain at rest, Denies chest pain with activity, Denies edema, Denies irregular heart rhythm, Denies claudication, Denies dyspnea, Denies dyspnea on exertion, Denies orthopnea, Denies paroxysmal nocturnal dyspnea and Denies slow heart rate Resp Denies cough, Denies dyspnea and Denies dyspnea on exertion GI Denies abdominal pain, Denies change in bowel habits, Denies excessive flatus, Denies nausea and Denies vomiting Denies urinary incontinence, Denies urinary hesitancy and Denies urinary urgency Musc Denies abnormal gait, Denies atrophy, Denies deformity and Denies limited range of motion Skin/Breast Denies bleeding lesions, Denies changing lesions and Denies rash Neuro Denies abnormal gait and Denies lack of coordination Physical exam (Primary Care) Vital Signs: Last Vital Signs BP 122/68 10/27/23 10:23 BMI result Body Mass Index 28.7 Tobacco/Smoking Status: Tobacco use Status Tobacco use date assessed 02/07/23 10/27/23 10:28 Patient Tobacco Use Status Never used Tobacco 10/27/23 10:28 e-Cigarette/Vaping Use Never Used 10/27/23 10:28 Thrive Assessment: Date of Thrive Assessment Date Thrive assessed 02/07/23 10/27/23 10:28 Const Orientation/consciousness: patient oriented x3 Eyes General: appearance normal, both eyes and all related structures Eyelids: Yes eyelids normal Conjunctivae: conjunctivae normal Neck Neck: Yes normal visual inspection and Yes supple Resp Effort & Inspection: normal respiratory effort Auscultation: clear to auscultation bilaterally Cardio Jugular venous distension: no JVD Rate: regular rate Rhythm: regular rhythm Heart sounds: S1 normal heart sound present and S2 normal heart sound present GI Inspection: Yes normal to inspection Palpation (GI): Soft to palpation and nontender Auscultation: normal bowel sounds Skin General skin exam: no rashes or lesions noted Neuro General: patient oriented x3 and no focal motor deficits Extrem General: Yes full ROM Psych Appearance: grossly normal Office Procedures Flu Questionnaire Does the patient have a severe egg allergy?: No Does the patient have severe life threatening allergies?: No Does the patient have a fever or illness today?: No Has the patient ever had Guillain-[place] Syndrome?: No Has the patient ever had any past reaction to a flu shot?: No Immunizations flu vacc [id number] 6mos up(PF) 60 mcg(15 mcgx4)/0.5 mL IM syringe Performing Provider: Paz Walters MD Performing Location: [facility] Administered by: VJ Gamez on 10/27/23 10:44 Dose Route Admin Location Dispensed Lot Number Expiration Date NDC Gastroenterology Manager 0.5 mL IM Left Deltoid 0.5 mL [id number] 05/27/24 67213-514-14 [email or web address] VIS Given Date VIS Provided VIS Publication Date 10/27/23 Single Vaccine 21 Eligibility Eligibility Date Funding Source Not [facility] Eligible 10/27/23 Private Assessment and Plan Assessment & Plan (1) Physical exam: Code(s): Z00.00 - Encounter for general adult medical examination without abnormal findings Plan: Repeat in a year. (2) Rheumatoid arthritis: Comment: -ve RF + CCP Methotrexate: 10/2018-07/2019-p.o. and subcutaneous- GI upset Humira: 02/15/2020- present Code(s): M06.9 - Rheumatoid arthritis, unspecified Qualifiers: Rheumatoid arthritis location: multiple sites Rheumatoid factor presence: unspecified presence Qualified Code(s): M06.9 - Rheumatoid arthritis, unspecified Plan: Continue methotrexate and folic acid. Follow-up with Rheumatology. (3) Arnold-Chiari malformation: Comment: Follows with neurology Dr Link Code(s): Q07.00 - Arnold-Chiari syndrome without spina bifida or hydrocephalus Plan: Follow-up with neurology. Orders: Orders Lipid Panel 10/27/23 E78.5 - Hyperlipidemia, unspecified Influenza [id number] Immunization 10/27/23 Z23 - Encounter for immunization Comprehensive [place]. Panel Fast 10/27/23 Z00.00 - Encounter for general adult medical examination without abnormal findings Coding Level of Care Code Est Pt Prev Care 40-64y(10466) Diagnoses Physical exam Z00.00 Rheumatoid arthritis involving multiple sites, unspecified whether rheumatoid factor present M06.9 Rheumatoid arthritis location: multiple sites Rheumatoid factor presence: unspecified presence Arnold-Chiari malformation Q07.00 Time Spent (min) 32
== END 2023-10-27 10:44 | disposition home or self-care (01) ==
PROVIDERS: PCP Internal Medicine; Visit Provider Internal Medicine
DX: Z23 Encounter for immunization (principal)
CPT/HCPCS: 90471; 90686; 99396

== ENCOUNTER 2023-11-02 10:20 | Outpatient (REF) | payer OTHER, SELFPAY ==
--- NOTE | ~2023-11-02 | XR_ITS ---
EXAMINATION: XR ANKLE, LEFT XR FOOT, LEFT CLINICAL INFORMATION: Rheumatoid arthritis. COMPARISON: None available. TECHNIQUE: AP, lateral, and mortise views of the left ankle. AP, lateral, and oblique views of the left foot. FINDINGS: No fracture, dislocation or left ankle joint effusion is seen. Alignment is anatomic. The ankle mortise is intact. No erosions. Joint spaces are maintained. Boehler's angle is normal. There is a trace plantar calcaneal spur. Soft tissues are normal. XR/XR ankle LT min 3V IMPRESSION: There is a trace plantar calcaneal spur. The examination is otherwise unremarkable.
--- NOTE | ~2023-11-02 | XR_ITS ---
EXAMINATION: XR HAND/WRIST, RIGHT CLINICAL INFORMATION: Rheumatoid arthritis. COMPARISON: None available. TECHNIQUE: PA, lateral, and oblique views of the right hand and wrist. FINDINGS: The bones and soft tissues are normal. No fracture. Alignment is anatomic. Joint spaces are maintained. No erosions or soft tissue calcifications. XR/XR hand wrist RT IMPRESSION: Normal radiographs of the hand and wrist. EXAMINATION: XR HAND/WRIST, LEFT CLINICAL INFORMATION: Rheumatoid arthritis. COMPARISON: None available. TECHNIQUE: PA, lateral, and oblique views of the left hand and wrist. FINDINGS: The bones and soft tissues are normal. No fracture. Alignment is anatomic. Joint spaces are maintained. No erosions or soft tissue calcifications.
--- NOTE | ~2023-11-02 | XR_ITS ---
EXAMINATION: XR HAND/WRIST, RIGHT CLINICAL INFORMATION: Rheumatoid arthritis. COMPARISON: None available. TECHNIQUE: PA, lateral, and oblique views of the right hand and wrist. FINDINGS: The bones and soft tissues are normal. No fracture. Alignment is anatomic. Joint spaces are maintained. No erosions or soft tissue calcifications. XR/XR hand wrist LT IMPRESSION: Normal radiographs of the hand and wrist. EXAMINATION: XR HAND/WRIST, LEFT CLINICAL INFORMATION: Rheumatoid arthritis. COMPARISON: None available. TECHNIQUE: PA, lateral, and oblique views of the left hand and wrist. FINDINGS: The bones and soft tissues are normal. No fracture. Alignment is anatomic. Joint spaces are maintained. No erosions or soft tissue calcifications.
--- NOTE | ~2023-11-02 | XR_ITS ---
EXAMINATION: XR ANKLE, RIGHT XR FOOT, RIGHT CLINICAL INFORMATION: Rheumatoid arthritis. COMPARISON: None available. TECHNIQUE: AP, lateral, and mortise views of the right ankle. AP, lateral, and oblique views of the right foot. FINDINGS: No fracture, dislocation or joint effusion is seen.. Alignment is anatomic. No erosions. Joint spaces are maintained. Boehler's angle is normal. There is a small plantar calcaneal spur. Soft tissues are normal. XR/XR ankle RT min 3V IMPRESSION: 1. No fracture, dislocation or joint effusion is seen. 2. There is a small plantar calcaneal spur.
--- NOTE | ~2023-11-02 | XR_ITS ---
EXAMINATION: XR ANKLE, RIGHT XR FOOT, RIGHT CLINICAL INFORMATION: Rheumatoid arthritis. COMPARISON: None available. TECHNIQUE: AP, lateral, and mortise views of the right ankle. AP, lateral, and oblique views of the right foot. FINDINGS: No fracture, dislocation or joint effusion is seen.. Alignment is anatomic. No erosions. Joint spaces are maintained. Boehler's angle is normal. There is a small plantar calcaneal spur. Soft tissues are normal. XR/XR foot RT min 3V IMPRESSION: 1. No fracture, dislocation or joint effusion is seen. 2. There is a small plantar calcaneal spur.
--- NOTE | ~2023-11-02 | XR_ITS ---
EXAMINATION: XR ANKLE, LEFT XR FOOT, LEFT CLINICAL INFORMATION: Rheumatoid arthritis. COMPARISON: None available. TECHNIQUE: AP, lateral, and mortise views of the left ankle. AP, lateral, and oblique views of the left foot. FINDINGS: No fracture, dislocation or left ankle joint effusion is seen. Alignment is anatomic. The ankle mortise is intact. No erosions. Joint spaces are maintained. Boehler's angle is normal. There is a trace plantar calcaneal spur. Soft tissues are normal. XR/XR foot LT min 3V IMPRESSION: There is a trace plantar calcaneal spur. The examination is otherwise unremarkable.
[2023-11-02 11:22] LABS: Alanine Aminotransferase 9 U/L (0-31); Alkaline Phosphatase 91 U/L (39-117); Anion Gap 11 (12-20); Aspartate Amino Transferase 17 U/L (5-31); Bilirubin Total 0.3 mg/dL (0.0-1.0); Blood Urea Nitrogen 16 mg/dL (9-16); Calcium 9.8 mg/dL (8.4-10.2); Carbon Dioxide 30 mmol/L (22-29); Chloride 104 mmol/L (96-108); Cholesterol 198 mg/dL (<200); Estimated Glomerular Filt Rate > 60; Glucose Fasting 96 mg/dL (60-99); HDL Cholesterol 52 mg/dL (>40); LDL Cholesterol Calculated 128 mg/dL (<100); Potassium 4.2 mmol/L (3.3-5.1); Sodium 141 mmol/L (135-145); Total Protein 7.9 g/dL (6.5-8.0); Triglycerides 93 mg/dL (<150)
== END 2023-11-02 10:21 | disposition home or self-care (01) ==
LOC: HO.LAB 10:20
PROVIDERS: Absent Provider Student in an Organized Health Care Education/Training Program; PCP Internal Medicine; Visit Provider Internal Medicine
DX: Z00.00 Encounter for general adult medical examination without abnormal findings (principal); E78.5 Hyperlipidemia, unspecified; M06.9 Rheumatoid arthritis, unspecified
CPT/HCPCS: 36415; 73110; 73130; 73610; 73630; 80053; 80061

== ENCOUNTER 2024-01-26 07:55 | Outpatient (REF) | payer OTHER, SELFPAY ==
[2024-01-26 08:11] LABS: MANUAL DIFF FLAG NO
[2024-01-26 09:03] LABS: Basophils Absolute Auto 0.1 X10*3/uL (0.0-0.2); Basophils Percent Auto 0.8 % (0-2); Eosinophils Absolute Auto 0.4 X10*3/uL (0.0-0.4); Eosinophils Percent Auto 4.9 % (0-4); Hematocrit 39.5 % (37.0-47.0); Hemoglobin 12.8 g/dl (12.0-16.0); Imm Gran Abs Auto 0.03 X10*3/uL (0.00-0.03); Imm Gran Pct Auto 0.4 % (0.0-0.4); Lymphocytes Absolute Auto 1.9 X10*3/uL (1.2-4.9); Lymphocytes Percent Auto 25.3 % (20-40); Mean Corpuscular HGB Conc 32.4 g/dl (31.0-35.0); Mean Corpuscular Volume 92.7 fL (80.0-98.0); Mean Platelet Volume 10.6 fL (9.4-12.3); Monocytes Absolute Auto 0.7 X10*3/uL (0.1-1.2); Monocytes Percent Auto 9.7 % (2-11); Neutrophils Absolute Auto 4.4 x10*3/uL (2.0-8.3); Neutrophils Percent Auto 58.9 % (45-73); Platelet Count 291 X10*3/uL (160-400); Red Blood Count 4.26 X10*6/uL (4.20-5.50); Red Cell Distribution Width 13.9 % (11.0-16.0); White Blood Count 7.5 X10*3/uL (4.8-10.8)
[2024-01-26 09:35] LABS: Alanine Aminotransferase 8 U/L (0-31); Albumin Level 3.9 g/dL (3.5-5.0); Alkaline Phosphatase 88 U/L (39-117); Anion Gap 11 (12-20); Aspartate Amino Transferase 16 U/L (5-31); Bilirubin Total 0.3 mg/dL (0.0-1.0); Blood Urea Nitrogen 14 mg/dL (9-16); C Reactive Protein 2.11 mg/dL (< or = 0.50); Calcium 9.5 mg/dL (8.4-10.2); Carbon Dioxide 30 mmol/L (22-29); Chloride 105 mmol/L (96-108); Estimated Glomerular Filt Rate > 60; Glucose Random 93 mg/dL (60-115); Potassium 4.1 mmol/L (3.3-5.1); Sodium 142 mmol/L (135-145); Total Protein 7.7 g/dL (6.5-8.0)
[2024-01-26 09:46] LABS: Erythrocyte Sedimentation Rate 44 MM/HR (0-20)
== END 2024-01-26 07:56 | disposition home or self-care (01) ==
LOC: HO.LAB 07:55
PROVIDERS: PCP Internal Medicine; Visit Provider Student in an Organized Health Care Education/Training Program
DX: M06.9 Rheumatoid arthritis, unspecified (principal)
CPT/HCPCS: 36415; 80053; 85025; 85652; 86140

== ENCOUNTER 2024-01-30 10:08 | Outpatient (AMB) | payer OTHER, SELFPAY ==
--- NOTE | 2024-01-30 10:18 | MHC.OFFVIS ---
Intake Vital Signs 01/30/24 10:19 Height 5 ft 2 in Weight 164 lb 14.492 oz BMI 30.2 BP 132/68 Blood Pressure Location Rt brachial Position Sitting Pulse 67 Pulse Source Pulse Oximeter Temp 96.8 F Temp Source Skin Pulse Oximetry (%) 99 Oxygen Delivery Method Room Air Intake Visit Reasons: RA Intake Note: Patient last seen 10/26/23 presents today for follow up and test results. Reports has not used in [email or web address] due to being sick. Last used 12/14/23 States she does not feel any different in terms of joint pain. However she does report back pain Also reports chest pain, states it could be due to anxiety and stress because of 's illness. 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 Required: No Accompanied by: Self / Same As Patient Allergies ciprofloxacin Allergy (Severe, Verified 01/30/24 10:34) Joint Pain naproxen [NAPROXEN] Allergy (Severe, Verified 01/30/24 10:34) STOMACH BLEED, bleeding, bleeding nitrofurantoin Allergy (Severe, Verified 01/30/24 10:34) Rash meloxicam [MELOXICAM] Allergy (Intermediate, Verified 01/30/24 10:34) RASH, hives prednisone [PREDNISONE] Allergy (Intermediate, Verified 01/30/24 10:34) SWELLING pregabalin [From LYRICA] Allergy (Intermediate, Verified 01/30/24 10:34) SHORTNESS OF BREATH Sulfa (Sulfonamide Antibiotics) Allergy (Intermediate, Verified 01/30/24 10:34) hives trimethoprim [From BACTRIM] Allergy (Intermediate, Verified 01/30/24 10:34) RASH oxycodone [From PERCOCET] Allergy (Mild, Verified 01/30/24 10:34) RASH Penicillins [PENICILLINS] Allergy (Mild, Verified 01/30/24 10:34) RASH Medication List - Last Reconciled 01/30/24 by Seth Billings MD acetaminophen (Tylenol Extra Strength) 500 mg PO Q6H PRN 30 days amitriptyline 25 mg PO BEDTIME mjxkbumocm-yulveyakvwdae-glpu 50-325-40 mg 1 tab PO Q6H PRN 30 days cyclobenzaprine 10 mg PO TID PRN epinephrine 0.3 mg (0.3 mL) IM Q10M PRN estradiol 0.01%(0.1mg/gram) (Estrace) pea sized amount per urethra QHS; 30 days Humira Pen (adalimumab) 40 mg (0.8 mL) subcut QWEEK NS Shower Chair Shower chair size small HPI HPI Comments History of Present Illness Details 63 y/o female presents for follow-up of Seropositive RA (-ve RF +CCP). Patient states that she has not taken the Humira since mid November due to mild upper respiratory tract infection followed by allergies. Her joints have been doing well however. She denies any pain. She is quite mobile without stiffness. She has been under plenty of stress as her has CKD and she has to take care of him. 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 GERD (gastroesophageal reflux disease) Migraines Surgical History Hx of hysterectomy History of total abdominal hysterectomy Family History Father Hypertension CVD (cardiovascular disease) Mother Hypertension Diabetes Cancer Paternal Grandmother Cancer Brother Colon cancer Social History Housing: Apartment Alcohol intake: current Alcohol intake frequency: holidays/special occasions only Alcohol type: wine Patient Tobacco Use Status: Never used Tobacco e-Cigarette/Vaping Use: Never Used Second Hand Smoke Exposure: No service: No Current occupational status: unemployed Cognitive needs: No Hearing needs: No Vision needs: Yes (glasses ) Review of Systems ENT Details: Allergies Musc Denies arthralgias, Denies joint swelling, Denies limited range of motion and Denies stiffness Physical Exam Vital Signs: Last Vital Signs Temp 96.8 F 01/30/24 10:19 Pulse 67 01/30/24 10:19 BP 132/68 01/30/24 10:19 Pulse Ox 99 01/30/24 10:19 Oxygen Delivery Method Room Air 01/30/24 10:19 BMI result Body Mass Index 30.2 Const General: cooperative, healthy appearing and comfortable Nutritional Appearance: overweight Orientation/consciousness: patient oriented x3 Limitations: no limitations HEENT Other: No sinus tenderness to palpation bilaterally Head: Yes normocephalic and Yes atraumatic Mouth: moist mucous membranes Resp Effort & Inspection: normal respiratory effort and able to speak in complete sentences Auscultation: clear to auscultation bilaterally Cardio Rate: regular rate Rhythm: regular rhythm Skin General skin exam: no rashes or lesions noted Neuro General: patient oriented x3 Extrem Other: No swollen joints Normal range of motion of hands, fingers, wrists without pain Normal range of motion of both shoulders and elbows with no pain Left knee pain with full flexion and extension associated with crepitus . Negative MTP squeeze test bilateral Assessment & Plan Assessment & Plan (1) Rheumatoid arthritis: Comment: -ve RF + CCP Methotrexate: 10/2018-07/2019-p.o. and subcutaneous- GI upset Humira: 02/15/2020- present Code(s): M06.9 - Rheumatoid arthritis, unspecified Qualifiers: Rheumatoid arthritis location: multiple sites Rheumatoid factor presence: unspecified presence Qualified Code(s): M06.9 - Rheumatoid arthritis, unspecified Plan: This is a 63-year-old female with seropositive RA who presents for follow-up. Patient has not been using the Humira for about 6 weeks due to upper respiratory tract infection followed by sinus allergies. She has no active synovitis. Her inflammatory markers are elevated. 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 Panel 3 Months M06.9 - Rheumatoid arthritis, unspecified Coding Level of Care Code Est Pt Level 4 (85179) Diagnoses Rheumatoid arthritis involving multiple sites, unspecified whether rheumatoid factor present M06.9 Rheumatoid arthritis location: multiple sites Rheumatoid factor presence: unspecified presence High risk medication use Z79.899
[2024-01-30 10:19] VITALS: BP 132/68; PULSE 67; TEMP 36; O2SAT 99; BMI 30.2
== END 2024-01-30 10:48 | disposition home or self-care (01) ==
PROVIDERS: PCP Internal Medicine; Visit Provider Student in an Organized Health Care Education/Training Program
DX: M06.9 Rheumatoid arthritis, unspecified (principal); Z79.899 Other long term (current) drug therapy
CPT/HCPCS: 99214

== ENCOUNTER → 2024-01-30 10:08 | Outpatient (BNVA) | payer OTHER, SELFPAY | PROVIDERS: PCP Internal Medicine; Visit Provider Student in an Organized Health Care Education/Training Program | DX: M06.9 Rheumatoid arthritis, unspecified (principal); Z79.899 Other long term (current) drug therapy | CPT/HCPCS: 99212 ==

== ENCOUNTER 2024-02-09 09:53 | Outpatient (AMB) | payer OTHER, SELFPAY ==
--- NOTE | 2024-02-09 10:51 | A.OFFVIS_ITS ---
Intake Intake Visit Reasons: 9m/microscopic hematuria/recurrent UTIs Intake Note: Patient presents today for a Micro Hematuria and Recurrent UTI's Meds: NONE Antibiotic Allergies: CIPRO, NITROFURANTION, BACTRIM, PENICILLIN & NAPROXEN Blood Thinner: None Urinalysis test clear for Cysto Sole Edge Inker Machine Required: No Accompanied by: Self / Same As Patient Allergies ciprofloxacin Allergy (Severe, Verified 02/09/24 10:52) Joint Pain naproxen [NAPROXEN] Allergy (Severe, Verified 02/09/24 10:52) STOMACH BLEED, bleeding, bleeding nitrofurantoin Allergy (Severe, Verified 02/09/24 10:52) Rash meloxicam [MELOXICAM] Allergy (Intermediate, Verified 02/09/24 10:52) RASH, hives prednisone [PREDNISONE] Allergy (Intermediate, Verified 02/09/24 10:52) SWELLING pregabalin [From LYRICA] Allergy (Intermediate, Verified 02/09/24 10:52) SHORTNESS OF BREATH Sulfa (Sulfonamide Antibiotics) Allergy (Intermediate, Verified 02/09/24 10:52) hives trimethoprim [From BACTRIM] Allergy (Intermediate, Verified 02/09/24 10:52) RASH oxycodone [From PERCOCET] Allergy (Mild, Verified 02/09/24 10:52) RASH Penicillins [PENICILLINS] Allergy (Mild, Verified 02/09/24 10:52) RASH Medication List - Last Reconciled 02/09/24 by Serina Crain MD acetaminophen (Tylenol Extra Strength) 500 mg PO Q6H PRN 30 days amitriptyline 25 mg PO BEDTIME wnjlqfncgp-nvlqhosejmsfx-thur 50-325-40 mg 1 tab PO Q6H PRN 30 days cyclobenzaprine 10 mg PO TID PRN epinephrine 0.3 mg (0.3 mL) IM Q10M PRN estradiol 0.01%(0.1mg/gram) (Estrace) pea sized amount per urethra QHS; 30 days Humira Pen (adalimumab) 40 mg (0.8 mL) subcut QWEEK NS Shower Chair Shower chair size small HPI HPI Comments History of Present Illness Details 02/09/2024-- Paz is a 63-year-old female, history of rheumatoid arthritis, who is followed for persistent microscopic hematuria, recurrent UTIs and irritative voiding symptoms. She has been prescribed Estrace cream for recurrent UTIs and vaginal atrophy. She states she is using the cream as directed small amount on her fingertip every other night at bedtime. She states that her urinary stream has been good denies dysuria at this time. She states that her has stage 5 kidney disease and she is concerned about her kidneys as she sometimes gets pain on the left flank to upper abdomen. I have reviewed with her that her BUN and creatinine is within normal limits she had labs on 01/26/2024 (BUN-14, creatinine 0,92). I have also reviewed recent imaging CT scan abdomen and pelvis done in July 2023 kidneys were normal without renal calculi or hydronephrosis. Evaluation-urinalysis leukocytes negative, blood 1+. Review of chart: 03/04/23--Paz is a 62-year-old female who presents to the office for recurrent UTI follow-up. The patient is seen for renal cyst in the past. On previous images the renal cyst meets the criteria for simple cyst [place] 1 and no follow-up is needed. She has recurrent UTI and is here for follow-up to check the urine. The patient was prescribed with Estrace cream to be used vaginally. The patient is using the cream currently. On discussion with the patient today, she complains having badder pain that started about 2 weeks ago. Evaluation today: Blood: 200 Mazin/uL, Leukocytes: 500 Kushal/uL. Microscopic examination:scant bacteria present. Plan: Cystoscopy procedure was discussed with the patient. Urine for Microgen was ordered. Continue with vaginal estrogen cream. Follow-up for office cystoscopy. 05/12/23-- presents to the office for cys toscopy procedure. The patient is here for follow-up for recurrent UTI and renal cyst. The patient also has persistent microscopic hematuria. The patient was treated with doxycycline by her PCP on 04/20/23 Renal US results reviewed?11/12/22-- 4 mm kidney cyst Abdominal US results reviewed?02/23/23-- within normal limits. Evaluation today--Blood: 80 Mazin/uL, leukocytes: 15 Kushal/uL. Cystoscopy findings-- No suspicious bladder lesions. 02/09/2024 --Plan: Cont Estrace cream. Follow-up after 9 months or sooner if needed. 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 GERD (gastroesophageal reflux disease) Migraines Surgical History Hx of hysterectomy History of total abdominal hysterectomy Family History Father Hypertension CVD (cardiovascular disease) Mother Hypertension Diabetes Cancer Paternal Grandmother Cancer Brother Colon cancer Social History Housing: Apartment Alcohol intake: current Alcohol intake frequency: holidays/special occasions only Alcohol type: wine Patient Tobacco Use Status: Never used Tobacco e-Cigarette/Vaping Use: Never Used Second Hand Smoke Exposure: No service: No Current occupational status: unemployed Cognitive needs: No Hearing needs: No Vision needs: Yes (glasses ) Review of Systems Const All systems reviewed & are unremarkable except as noted in HPI and below Reports no additional complaints Eyes Reports no additional complaints ENT Reports no additional complaints Card Denies dyspnea Resp Denies cough and Denies dyspnea GI Reports no additional complaints Reports no additional complaints Musc Reports no additional complaints Skin/Breast Denies rash and Denies unusual bruising Neuro Reports no additional complaints Psych Reports no additional complaints Endo Reports no additional complaints Jose/Lymph Reports no additional complaints Aller/Immun Reports no additional complaints Results Reviewed Results Reviewed: Date of Service: 08/18/23 EXAMINATION: CT ABDOMEN AND PELVIS WITHOUT CONTRAST CLINICAL INFORMATION: Left lower quadrant tenderness. COMPARISON: 04/05/2022 TECHNIQUE: Multidetector volumetric imaging was performed from the superior aspect of the liver through the pubic symphysis. Sagittal and coronal reformatted images were obtained on the technologist's workstation. This CT examination was performed using dose optimization techniques as appropriate, variously including the following: *Automated exposure control *Adjustment of mA and/or kV according to patient size (this includes techniques or standardized protocols for targeted exams where dose is matched to indication/reason for exam; i.e. extremities or head) *Use of iterative reconstruction technique DLP: 528 mGy-cm FINDINGS: LUNG BASES: The visualized lung bases are unremarkable. LIVER, GALLBLADDER, AND BILIARY TREE: The noncontrast liver is normal in size and contour. No biliary ductal dilatation is present. The gallbladder is unremarkable with no evidence of radiopaque gallstones, gallbladder wall thickening, or obvious pericholecystic inflammatory changes. PANCREAS: Unremarkable. SPLEEN: Unremarkable. ADRENAL GLANDS: Unremarkable. KIDNEYS AND URETERS: The kidneys are symmetric in size. No renal calculus. No hydronephrosis or perinephric stranding. BLADDER: Possible cystocele. GASTROINTESTINAL TRACT: Small and large bowel loops are of normal caliber. Moderate fecal retention in the colon. No small bowel obstruction. Appendix is within normal limits. ABDOMINAL WALL: No significant hernia is appreciated. LYMPH NODES: No bulky abdominal or pelvic lymphadenopathy. VASCULAR: Normal caliber abdominal aorta. PELVIC VISCERA: Uterus is surgically absent. OSSEOUS STRUCTURES: No destructive bone lesions. IMPRESSION: No acute abnormality in the abdomen or pelvis. Assessment & Plan Assessment & Plan (1) Recurrent UTI: Code(s): N39.0 - Urinary tract infection, site not specified (2) Microscopic hematuria: Code(s): R31.29 - Other microscopic hematuria Plan Continue Estrace cream. Follow-up in 9 months Medications: Refilled estradiol 0.01%(0.1mg/gram) (Estrace) pea sized amount per urethra QHS; 30 days 42.5 grams 3RF complicated uti N39.0 - Urinary tract infection, site not specified Patient Instructions: The patient had an opportunity to ask questions regarding treatment plan. All questions were answered. Imaging, Laboratory studies and physical exam results were discussed and reviewed in detail. No major barriers to understanding were identified. The patient expressed understanding and agreement with the above treatment plan. The patient is aware they should contact our office by phone for worsening of their current condition or the appearance of new symptoms. Compliance is encouraged with any medications and followup testing that is ordered. It is a privilege to be allowed the opportunity to participate in the urologic care of your patient. If you have any questions or concerns regarding treatment for the above conditions please do not hesitate to contact me. The office telephone contact is [phone]. This note is constructed in part using voice recognition software. While every effort has been made to ensure accuracy track watchman errors may have been included. Yours sincerely, Serina Crain MD Coding Level of Care Code Est Pt Level 4 (19748) Diagnoses Recurrent UTI N39.0 Microscopic hematuria R31.29
== END 2024-02-09 11:18 | disposition home or self-care (01) ==
PROVIDERS: PCP Internal Medicine; Visit Provider Urology
DX: N39.0 Urinary tract infection, site not specified (principal); R31.29 Other microscopic hematuria; Z13.9 Encounter for screening, unspecified
CPT/HCPCS: 99214

== ENCOUNTER → 2024-02-09 09:53 | Outpatient (BNVA) | payer OTHER, SELFPAY | PROVIDERS: PCP Internal Medicine; Visit Provider Urology | DX: N39.0 Urinary tract infection, site not specified (principal) | CPT/HCPCS: 81003; 99212 ==

== ENCOUNTER 2024-04-04 12:45 | Outpatient (REF) | payer OTHER, SELFPAY | END 2024-04-04 12:46 | disposition home or self-care (01) | LOC: HO.LAB 12:45 | PROVIDERS: PCP Internal Medicine; Visit Provider Advanced Practice Midwife | DX: R10.2 Pelvic and perineal pain (principal); R31.29 Other microscopic hematuria; N39.0 Urinary tract infection, site not specified | CPT/HCPCS: 81003; 87086; 99396 ==

== ENCOUNTER 2024-04-04 12:45 | Outpatient (AMB) | payer OTHER, SELFPAY ==
--- NOTE | 2024-04-04 13:09 | A.OFFVIS_ITS ---
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 Intake Note: pt c/o pelvic pain ?bladder prolapse Dietetics Professor: Dietetics Professor Present ([place]) Allergies ciprofloxacin Allergy (Severe, Verified 04/04/24 13:16) Joint Pain naproxen [NAPROXEN] Allergy (Severe, Verified 04/04/24 13:16) STOMACH BLEED, bleeding, bleeding nitrofurantoin Allergy (Severe, Verified 04/04/24 13:16) Rash meloxicam [MELOXICAM] Allergy (Intermediate, Verified 04/04/24 13:16) RASH, hives prednisone [PREDNISONE] Allergy (Intermediate, Verified 04/04/24 13:16) SWELLING pregabalin [From LYRICA] Allergy (Intermediate, Verified 04/04/24 13:16) SHORTNESS OF BREATH Sulfa (Sulfonamide Antibiotics) Allergy (Intermediate, Verified 04/04/24 13:16) hives trimethoprim [From BACTRIM] Allergy (Intermediate, Verified 04/04/24 13:16) RASH oxycodone [From PERCOCET] Allergy (Mild, Verified 04/04/24 13:16) RASH Penicillins [PENICILLINS] Allergy (Mild, Verified 04/04/24 13:16) RASH HPI Comments Details: She is a 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 She is doing well with concerns: thinks she has a prolapse, pressure. Hysterectomy due to chronic pelvic pain. She denies any urinary symptoms. She reports using the Estrace cream externally as directed. Attempting to eat a healthy diet with calcium, and stays active with exercise. Currently not sexually active, partner has medical issues. Last mammogram; 2022. Colonoscopy is UTD. Family history of colon cancer brother, no history of ovarian or breast cancer. 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 GERD (gastroesophageal reflux disease) Migraines Surgical History Hx of hysterectomy History of total abdominal hysterectomy Family History Father Hypertension CVD (cardiovascular disease) Mother Hypertension Diabetes Cancer Paternal Grandmother Cancer Brother Colon cancer Social History Housing: Apartment Alcohol intake: current Alcohol intake frequency: holidays/special occasions only Alcohol type: wine Patient Tobacco Use Status: Never used Tobacco e-Cigarette/Vaping Use: Never Used Second Hand Smoke Exposure: No service: No Current occupational status: unemployed Cognitive needs: No Hearing needs: No Vision needs: Yes (glasses ) Female Reproductive History Menstrual Menopause type: surgical Total pregnancies: 5 Full term: 2 Number of Living Children: 2 Ab spontaneous: 3 Date of Mammogram: 01/14/23 (Birad 2) Review of Systems Const All systems reviewed & are unremarkable except as noted in HPI and below Reports as per HPI Eyes Reports no additional complaints ENT Reports no additional complaints Card Reports no additional complaints Resp Reports no additional complaints GI Reports as per HPI and Reports no additional complaints Reports as per HPI Musc Reports no additional complaints Skin/Breast Reports as per HPI Neuro Reports no additional complaints Psych Reports no additional complaints Endo Reports no additional complaints Jose/Lymph Reports no additional complaints Aller/Immun Reports no additional complaints Physical Exam Vital Signs: Last Vital Signs BP 120/64 04/04/24 13:16 BMI result Body Mass Index 30.7 Const General: cooperative, healthy appearing, no acute distress, well developed and alert Orientation/consciousness: patient oriented x3 HEENT Head: Yes normal to inspection Eyes General: appearance normal, both eyes and all related structures Neck Neck: Yes normal visual inspection Thyroid: Thyroid normal Chest Chest palpation & inspection: normal inspection of the chest and other (no puckering, dimpling, peau de orange, retraction, discharge, masses) Breast/axilla inspection: normal inspection of the breasts Breast/axilla palpation: normal palpation of the breasts Resp Effort & Inspection: normal respiratory effort GI Inspection: Yes normal to inspection Palpation (GI): Soft to palpation Rectal Exam - Female: deferred General: Yes bladder normal to palpation External Female Exam: normal external appearance and normal appearance of the urethra Speculum Exam - Vagina: normal appearance of the vagina, normal palpation and normal vaginal discharge Speculum Exam - Cervix: Cervix absent (Vaginal cuff no lesions or nodules) Bimanual exam- vagina & uterus: normal bimanual exam, normal palpation, bladder normal to palpation and uterus absent Bimanual Exam- Adnexa, other: no masses and cystocele Skin General skin exam: no rashes or lesions noted Rashes: no rashes Neuro General: patient oriented x3 Cognition (Neuro): normal cognition Extrem General: Yes normal to inspection Psych Attitude: cooperative Thought process: Normal thought process present Results AMB Urinalysis, Automated UA Leukoctes 3 Kushal/uL Last Edit by Bree Lockhart Anoop on 04/04/24 13:27 UA Nitrite Negative Last Edit by Bree Lockhart [facility] on 04/04/24 13:27 UA Urobilinogen 0 mg/dL Last Edit by Bree Lockhart [facility] on 04/04/24 13:2 7 UA Protein 0 mg/dL Last Edit by Bree Lockhart [facility] on 04/04/24 13:27 UA pH 6.0 Last Edit by Bree Lockhart [facility] on 04/04/24 13:27 UA Blood 2 Mazin/uL Last Edit by Bree Lockhart [facility] on 04/04/24 13:27 UA Specific [place] 1.005 Last Edit by Bree Lockhart [facility] on 04/04/24 13:27 UA Ketone Negative Last Edit by Bree Lockhart [facility] on 04/04/24 13:27 UA Bilirubin 0 mg/dL Last Edit by Bree Lockhart [facility] on 04/04/24 13:27 UA Glucose 0 mg/dL Last Edit by Bree Lockhart [facility] on 04/04/24 13:27 Results Reviewed Results Reviewed: Laboratory Last Values Urine pH (Auto) 6.0 04/04/24 13:26 Specific [place] (Auto) 1.005 04/04/24 13:26 Urine Protein (Auto) 0 mg/dL 04/04/24 13:26 Glucose (UA)(Auto) 0 mg/dL 04/04/24 13:26 Urine Ketones (Auto) Negative 04/04/24 13:26 Urine Blood (Auto) 2 Mazin/uL 04/04/24 13:26 Urine Nitrite (Auto) Negative 04/04/24 13:26 Urine Bilirubin (Auto) 0 mg/dL 04/04/24 13:26 Urine Urobilinogen (Auto) 0 mg/dL 04/04/24 13:26 Leukocyte Esterase (Auto) 3 Kushal/uL 04/04/24 13:26 Assessment & Plan Assessment & Plan (1) Well woman exam with routine gynecological exam: Code(s): Z01.419 - Encounter for gynecological examination (general) (routine) without abnormal findings Category: Medical Plan: Discussed: Current recommendations for pap smears per ASCCP guidelines. Breast awareness, periodic self breast exams and yearly mammogram. Maintain a healthy lifestyle, well balanced diet including Calcium 1,200 mg and Vitamin D 600 IU daily, and routine exercise. Discussed findings cystocele follow up if needed if any concerns. Patient verbalizes understanding and agrees to the plan of care. She was given opportunity to ask questions and all questions were answered to the best of my ability. RTO in 1 year for annual customer solutions teammate exam. This note is constructed using voice recognition software. While every effort has been made to ensure accuracy, nailer hand errors may have been included. Orders: Orders AMB Urinalysis Automated Today R10.2 - Pelvic and perineal pain Urine Culture Today N39.0 - Urinary tract infection, site not specified, R10.2 - Pelvic and perineal pain, R31.29 - Other microscopic hematuria Coding Level of Care Code Est Pt Prev Care 40-64y(60120) Diagnoses Well woman exam with routine gynecological exam Z01.419
[2024-04-04 13:16] VITALS: BP 120/64; BMI 30.7
== END 2024-04-04 14:03 | disposition home or self-care (01) ==
LOC: HO.HWS 12:45
PROVIDERS: PCP Internal Medicine; Visit Provider Advanced Practice Midwife
DX: R10.2 Pelvic and perineal pain (principal); Z01.419 Encounter for gynecological examination (general) (routine) without abnormal findings
CPT/HCPCS: 99396

== ENCOUNTER 2024-04-24 08:13 | Outpatient (REF) | payer OTHER, SELFPAY ==
[2024-04-24 08:32] LABS: MANUAL DIFF FLAG NO
[2024-04-24 09:04] LABS: Basophils Percent Auto 0.5 % (0-2); Eosinophils Absolute Auto 0.3 X10*3/uL (0.0-0.4); Eosinophils Percent Auto 3.4 % (0-4); Hematocrit 38.7 % (37.0-47.0); Hemoglobin 12.8 g/dl (12.0-16.0); Imm Gran Abs Auto 0.05 X10*3/uL (0.00-0.03); Imm Gran Pct Auto 0.7 % (0.0-0.4); Lymphocytes Absolute Auto 1.7 X10*3/uL (1.2-4.9); Mean Corpuscular HGB Conc 33.1 g/dl (31.0-35.0); Mean Corpuscular Hemoglobin 30.3 pg (27.0-33.0); Mean Corpuscular Volume 91.7 fL (80.0-98.0); Mean Platelet Volume 10.3 fL (9.4-12.3); Monocytes Absolute Auto 0.6 X10*3/uL (0.1-1.2); Monocytes Percent Auto 7.8 % (2-11); Neutrophils Percent Auto 65.6 % (45-73); Platelet Count 308 X10*3/uL (160-400); Red Blood Count 4.22 X10*6/uL (4.20-5.50); Red Cell Distribution Width 13.4 % (11.0-16.0); White Blood Count 7.6 X10*3/uL (4.8-10.8)
[2024-04-24 09:34] LABS: Alanine Aminotransferase 11 U/L (0-31); Albumin Level 3.9 g/dL (3.5-5.0); Alkaline Phosphatase 100 U/L (39-117); Anion Gap 11 (12-20); Aspartate Amino Transferase 19 U/L (5-31); Bilirubin Total 0.4 mg/dL (0.0-1.0); Blood Urea Nitrogen 17 mg/dL (9-16); Calcium 9.6 mg/dL (8.4-10.2); Carbon Dioxide 28 mmol/L (22-29); Chloride 106 mmol/L (96-108); Estimated Glomerular Filt Rate > 60; Glucose Random 96 mg/dL (60-115); Potassium 3.9 mmol/L (3.3-5.1); Sodium 141 mmol/L (135-145); Total Protein 7.7 g/dL (6.5-8.0)
[2024-04-24 09:47] LABS: Erythrocyte Sedimentation Rate 41 MM/HR (0-20)
== END 2024-04-24 08:14 | disposition home or self-care (01) ==
LOC: HO.LAB 08:13
PROVIDERS: PCP Internal Medicine; Visit Provider Student in an Organized Health Care Education/Training Program
DX: M06.9 Rheumatoid arthritis, unspecified (principal)
CPT/HCPCS: 36415; 80053; 85025; 85652; 86140

== ENCOUNTER 2024-05-02 08:53 | Outpatient (AMB) | payer OTHER, SELFPAY ==
--- NOTE | 2024-05-02 09:26 | A.OFFVIS_ITS ---
Vital Signs 05/02/24 09:27 Height 5 ft 2 in Weight 166 lb 7.184 oz BMI 30.4 BP 112/66 Blood Pressure Location Rt brachial Position Sitting Pulse 59 Pulse Source Pulse Oximeter Pulse Oximetry (%) 94 Oxygen Delivery Method Room Air Intake Visit Reasons: RA Intake Note: Reports low back pain and fatigue. Orthoptist Required: No Accompanied by: Self / Same As Patient Allergies ciprofloxacin Allergy (Severe, Verified 05/02/24 09:28) Joint Pain naproxen [NAPROXEN] Allergy (Severe, Verified 05/02/24 09:28) STOMACH BLEED, bleeding, bleeding nitrofurantoin Allergy (Severe, Verified 05/02/24 09:28) Rash meloxicam [MELOXICAM] Allergy (Intermediate, Verified 05/02/24 09:28) RASH, hives prednisone [PREDNISONE] Allergy (Intermediate, Verified 05/02/24 09:28) SWELLING pregabalin [From LYRICA] Allergy (Intermediate, Verified 05/02/24 09:28) SHORTNESS OF BREATH Sulfa (Sulfonamide Antibiotics) Allergy (Intermediate, Verified 05/02/24 09:28) hives trimethoprim [From BACTRIM] Allergy (Intermediate, Verified 05/02/24 09:28) RASH oxycodone [From PERCOCET] Allergy (Mild, Verified 05/02/24 09:28) RASH Penicillins [PENICILLINS] Allergy (Mild, Verified 05/02/24 09:28) RASH Medication List - Last Reconciled 05/02/24 by Seth Billings MD acetaminophen (Tylenol Extra Strength) 500 mg PO Q6H PRN 30 days amitriptyline 25 mg PO BEDTIME eafsdgeigd-adwzigamkxgeq-jrhr 50-325-40 mg 1 tab PO Q6H PRN 30 days cyclobenzaprine 10 mg PO TID PRN epinephrine 0.3 mg (0.3 mL) IM Q10M PRN estradiol 0.01%(0.1mg/gram) (Estrace) pea sized amount per urethra QHS; 30 days Humira Pen (adalimumab) 40 mg (0.8 mL) subcut QWEEK NS Shower Chair Shower chair size small HPI Comments Details: 63 y/o female presents for follow-up of Seropositive RA (-ve RF +CCP). patient states that she has not been using the Humira as prescribed. She does plenty of work around the house. She continue used to have back pain with activity. She states that she was prescribed a back brace in the past but it w as too bulky and she was unable to fit it under her clothes. She would like a different brace. She gets intermittent pain in her hands, wrists associated with stiffness. Also complaining of fatigue. 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 GERD (gastroesophageal reflux disease) Migraines Surgical History Hx of hysterectomy History of total abdominal hysterectomy Family History Father Hypertension CVD (cardiovascular disease) Mother Hypertension Diabetes Cancer Paternal Grandmother Cancer Brother Colon cancer Social History Housing: Apartment Alcohol intake: current Alcohol intake frequency: holidays/special occasions only Alcohol type: wine Patient Tobacco Use Status: Never used Tobacco e-Cigarette/Vaping Use: Never Used Second Hand Smoke Exposure: No service: No Current occupational status: unemployed Cognitive needs: No Hearing needs: No Vision needs: Yes (glasses ) Review of Systems Const Reports fatigue Musc Reports back pain, Reports arthralgias, Denies joint swelling and Reports stiffness Endo Reports fatigue Physical Exam Vital Signs: Last Vital Signs Pulse 59 05/02/24 09:27 BP 112/66 05/02/24 09:27 Pulse Ox 94 05/02/24 09:27 Oxygen Delivery Method Room Air 05/02/24 09:27 BMI result Body Mass Index 30.4 Const General: cooperative, healthy appearing and comfortable Nutritional Appearance: overweight Orientation/consciousness: patient oriented x3 Limitations: no limitations HEENT Head: Yes normocephalic and Yes atraumatic Mouth: moist mucous membranes Resp Effort & Inspection: normal respiratory effort and able to speak in complete sentences Auscultation: clear to auscultation bilaterally Cardio Rate: regular rate Rhythm: regular rhythm Skin General skin exam: no rashes or lesions noted Neuro General: patient oriented x3 Extrem Other: No swollen joints Left wrist tenderness to palpation and pain with full flexion-extension Normal range of motion of both shoulders and elbows with no pain No knee pain bilaterally with full flexion-extension Negative straight leg raise test bilaterally . Negative MTP squeeze test bilateral Assessment & Plan Assessment & Plan (1) Rheumatoid arthritis: Comment: -ve RF + CCP Methotrexate: 10/2018-07/2019-p.o. and subcutaneous- GI upset Humira: 02/15/2020- present, noncompliance Code(s): M06.9 - Rheumatoid arthritis, unspecified Category: Medical Qualifiers: Rheumatoid arthritis location: multiple sites Rheumatoid factor presence: unspecified presence Qualified Code(s): M06.9 - Rheumatoid arthritis, unspecified Plan: This is a 63-year-old female with seropositive RA who presents for follow-up. Patient has not been using the Humira as prescribed. She continues to have mild flare-ups affecting her hands. Continues to have intermittent fatigue. Inflammatory markers elevated Advised patient to restart Humira every other week Hepatitis screening negative Patient apparently had a positive tuberculin test but a negative T spot 04/2023 Chest CTA 2020 showed no signs of tuberculosis Labs before next visit in 4 months (2) High risk medication use: Code(s): Z79.899 - Other supervisor intermediates (current) drug therapy Category: Medical Plan: Hold Humira with any signs of infection until infection resolves (3) Low back pain, unspecified: Code(s): M54.50 - Low back pain, unspecified Category: Medical Qualifiers: Chronicity: chronic Back pain laterality: midline Sciatica presence: without sciatica Qualified Code(s): M54.50 - Low back pain, unspecified; G89.29 - Other chronic pain Plan: Chronic, related to activity. Patient was prescribed a back brace in the past, could not tolerate it at it was quite bulky. Patient states that she found a comfortable back brace at a medical supply store. Advised patient to had to the medical supply store and let us know the name and we will prescribe the same brace. Hopefully it will be approved Plan I spent 25 minutes reviewing patient's chart, evaluating patient, ordering diagnostic workup, counseling patient and documenting in the chart Orders: Orders Comprehensive Met. Panel 4 Months M06.9 - Rheumatoid arthritis, unspecified Complete Blood Count Auto Diff 4 Months M06.9 - Rheumatoid arthritis, unspecified C Reactive Protein 4 Months M06.9 - Rheumatoid arthritis, unspecified Erythrocyte Sedimentation Rate 4 Months M06.9 - Rheumatoid arthritis, unspecified Coding Level of Care Code Est Pt Level 4 (81214) Diagnoses Rheumatoid arthritis involving multiple sites, unspecified whether rheumatoid factor present M06.9 Rheumatoid arthritis location: multiple sites Rheumatoid factor presence: unspecified presence High risk medication use Z79.899 Chronic midline low back pain without sciatica M54.50; G89.29 Chronicity: chronic Back pain laterality: midline Sciatica presence: without sciatica
[2024-05-02 09:27] VITALS: BP 112/66; PULSE 59; O2SAT 94; BMI 30.4
== END 2024-05-02 09:42 | disposition home or self-care (01) ==
PROVIDERS: PCP Internal Medicine; Visit Provider Student in an Organized Health Care Education/Training Program
DX: M06.9 Rheumatoid arthritis, unspecified (principal); Z79.899 Other long term (current) drug therapy; M54.50 Low back pain, unspecified; G89.29 Other chronic pain
CPT/HCPCS: 99214

== ENCOUNTER → 2024-05-02 08:53 | Outpatient (BNVA) | payer OTHER, SELFPAY | PROVIDERS: PCP Internal Medicine; Visit Provider Student in an Organized Health Care Education/Training Program | DX: M06.9 Rheumatoid arthritis, unspecified (principal); M54.50 Low back pain, unspecified; G89.29 Other chronic pain; R53.83 Other fatigue; Z79.620 Long term (current) use of immunosuppressive biologic; Z91.148 Patient's other noncompliance with medication regimen for other reason | CPT/HCPCS: 99212 ==

== ENCOUNTER 2024-05-15 09:14 | Outpatient (AMB) | payer OTHER, SELFPAY ==
[2024-05-15 09:22] VITALS: BP 120/62; PULSE 59; BMI 30.4
--- NOTE | 2024-05-15 09:22 | A.OFFVIS_ITS ---
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 Allergies ciprofloxacin Allergy (Severe, Verified 05/15/24 09:27) Joint Pain naproxen [NAPROXEN] Allergy (Severe, Verified 05/15/24 09:27) STOMACH BLEED, bleeding, bleeding nitrofurantoin Allergy (Severe, Verified 05/15/24 09:27) Rash meloxicam [MELOXICAM] Allergy (Intermediate, Verified 05/15/24 09:27) RASH, hives prednisone [PREDNISONE] Allergy (Intermediate, Verified 05/15/24 09:27) SWELLING pregabalin [From LYRICA] Allergy (Intermediate, Verified 05/15/24 09:27) SHORTNESS OF BREATH Sulfa (Sulfonamide Antibiotics) Allergy (Intermediate, Verified 05/15/24 09:27) hives trimethoprim [From BACTRIM] Allergy (Intermediate, Verified 05/15/24 09:27) RASH oxycodone [From PERCOCET] Allergy (Mild, Verified 05/15/24 09:27) RASH Penicillins [PENICILLINS] Allergy (Mild, Verified 05/15/24 09:27) RASH Medication List - Last Reconciled 05/15/24 by Lobo Watts MD acetaminophen (Tylenol Extra Strength) 500 mg PO Q6H PRN 30 days amitriptyline 25 mg PO BEDTIME [id number]-[id number]-[id number] 50-325-40 mg 1 tab PO Q6H PRN 30 days cyclobenzaprine 10 mg PO TID PRN epinephrine 0.3 mg (0.3 mL) IM Q10M PRN estradiol 0.01%(0.1mg/gram) (Estrace) pea sized amount per urethra QHS; 30 days Humira Pen (adalimumab) 40 mg (0.8 mL) subcut QWEEK NS [Regular back brace wear as needed] Shower Chair Shower chair size small HPI Comments Details: Paz returns for follow-up. We have seen around 3 years ago. At that time, she has had chest pains but not thought to be cardiac. She also has history of rheumatoid arthritis. Otherwise, has a history of atrial septal aneurysm/PFO. She states she is again having chest pains and this can happen with rest or exertion and essentially any time. Also feels tired during this times with palpitations and some left arm discomfort as well. Still seems atypical. No known coronary disease or myocardial infarction. 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 GERD (gastroesophageal reflux disease) Migraines Surgical History Hx of hysterectomy History of total abdominal hysterectomy Family History Father Hypertension CVD (cardiovascular disease) Mother Hypertension Diabetes Cancer Paternal Grandmother Cancer Brother Colon cancer Social History Housing: Apartment Alcohol intake: current Alcohol intake frequency: holidays/special occasions only Alcohol type: wine Patient Tobacco Use Status: Never used Tobacco e-Cigarette/Vaping Use: Never Used Second Hand Smoke Exposure: No service: No Current occupational status: unemployed Cognitive needs: No Hearing needs: No Vision needs: Yes (glasses ) Review of Systems ENT Reports dizziness Card Reports chest pain, Denies chest pain at rest, Denies chest pain with activity, Denies rapid heart rate, Denies pedal edema, Denies edema, Denies leg edema, Denies lightheadedness, Denies palpitations, Denies dyspnea, Denies dyspnea on exertion and Denies orthopnea Resp Denies cough, Denies dyspnea and Denies dyspnea on exertion GI Denies hematochezia and Denies change in stool character Musc Denies abnormal gait, Reports limited range of motion, Reports muscle cramps, Denies muscle weakness, Denies numbness, Denies radiating pain into limb, Denies stiffness and Denies tingling Neuro Denies abnormal gait, Reports dizziness, Denies numbness and Denies tingling Endo Denies palpitations Physical Exam Vital Signs: Last Vital Signs Pulse 59 05/15/24 09:22 BP 120/62 05/15/24 09:22 BMI result Body Mass Index 30.4 Const General: comfortable and no acute distress Orientation/consciousness: patient oriented x3 HEENT Other: Unremarkable Head: Yes normal to inspection Neck Neck: Yes normal visual inspection Chest Chest palpation & inspection: normal inspection of the chest Resp Auscultation: clear to auscultation bilaterally Cardio Palpation: normal PMI Heart sounds: S1 normal heart sound present, S2 normal heart sound present, no gallops, no murmurs and no rubs GI Palpation (GI): Soft to palpation Back/Spine/Pelvis Other: unremarkable Skin General skin exam: no rashes or lesions noted Neuro General: patient oriented x3 Extrem General: Yes normal to inspection Psych Mental Status: mental status grossly normal Office Procedures EKG Details: EKG with sinus bradycardia at 59/Min; no significant ST-T changes and otherwise unremarkable. [place] [id number], Complete Assessment & Plan Assessment & Plan (1) Precordial chest pain: Code(s): R07.2 - Precordial pain Category: Medical (2) PFO with atrial septal aneurysm: Code(s): Q21.1 - Atrial septal defect Category: Medical Plan Atypical chest pain but ongoing for quite some time. We can check an exercise stress echocardiogram. In the past, diagnosis of PFO/mobile atrial septum. No specific implications. Orders: Orders CA echo stress exercise Today R07.2 - Precordial pain Coding Level of Care Code Est Pt Level 3 (78236) Diagnoses Precordial chest pain R07.2 PFO with atrial septal aneurysm Q21.1 CPT Codes EKG - CPT: 00475-[id number], Complete ([id number])
== END 2024-05-15 09:46 | disposition home or self-care (01) ==
PROVIDERS: PCP Internal Medicine; Visit Provider Internal Medicine
DX: R07.2 Precordial pain (principal); Q21.10 Atrial septal defect, unspecified
CPT/HCPCS: 93010; 99213

== ENCOUNTER → 2024-05-15 09:14 | Outpatient (BNVA) | payer OTHER, SELFPAY | PROVIDERS: PCP Internal Medicine; Visit Provider Internal Medicine | DX: R07.2 Precordial pain (principal); Q21.10 Atrial septal defect, unspecified | CPT/HCPCS: 93005; 99212 ==

== ENCOUNTER → 2024-06-22 10:31 | Outpatient (REF) | payer OTHER, SELFPAY ==
--- NOTE | 2024-06-22 10:35 | CA_ITS ---
Acquisition Time: 2024-06-22 10:40:28 Total Exercise Time: 00:08:05 Test Indications: Chest Pain Medications: SEE H Protocol: BELKIS Max HR: 136 BPM 92% of Pred: 147 BPM Max BP: 140/070 mmHG Max Work Load: 11.0 METS Exercise stress test exercise 8 min 5 sec of Belkis protocol (stage 3 increased manually) 92% MPHR, with mild SOB, without chest pains, with isolated PVCs, with T wave inversion during exercise and downsloping in leads aVL, V3-V6 and hortizontal depression lead 2. Echo images obtained by Cognea at rest and immediately post peak exercise. Definity conrtast used. Test reviewed with Dr. Watts. Referred By: Lobo Watts Overread By: Lidia Lowry
== END ==
LOC: HO.CARD 10:31
PROVIDERS: PCP Internal Medicine; Visit Provider Internal Medicine
DX: R07.2 Precordial pain (principal)
CPT/HCPCS: 93350; Q9957

== ENCOUNTER → 2024-06-22 10:35 | Outpatient (BNV) | payer OTHER, SELFPAY | PROVIDERS: PCP Internal Medicine; Visit Provider Nurse Practitioner | DX: R07.9 Chest pain, unspecified (principal); R06.02 Shortness of breath | CPT/HCPCS: 93016; 93018; 93350; 93352 ==

== ENCOUNTER 2024-08-07 08:54 | Outpatient (AMB) | payer OTHER, SELFPAY ==
[2024-08-07 09:02] VITALS: BP 120/60; PULSE 67; BMI 30.2
--- NOTE | 2024-08-07 09:02 | MHC.OFFVIS ---
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 Allergies ciprofloxacin Allergy (Severe, Verified 08/07/24 09:05) Joint Pain naproxen [NAPROXEN] Allergy (Severe, Verified 08/07/24 09:05) STOMACH BLEED, bleeding, bleeding nitrofurantoin Allergy (Severe, Verified 08/07/24 09:05) Rash meloxicam [MELOXICAM] Allergy (Intermediate, Verified 08/07/24 09:05) RASH, hives prednisone [PREDNISONE] Allergy (Intermediate, Verified 08/07/24 09:05) SWELLING pregabalin [From LYRICA] Allergy (Intermediate, Verified 08/07/24 09:05) SHORTNESS OF BREATH Sulfa (Sulfonamide Antibiotics) Allergy (Intermediate, Verified 08/07/24 09:05) hives trimethoprim [From BACTRIM] Allergy (Intermediate, Verified 08/07/24 09:05) RASH oxycodone [From PERCOCET] Allergy (Mild, Verified 08/07/24 09:05) RASH Penicillins [PENICILLINS] Allergy (Mild, Verified 08/07/24 09:05) RASH Medication List - Last Reconciled 08/07/24 by Yanci Zuniga ETHYLBENZENE OXIDIZEREddieC acetaminophen (Tylenol Extra Strength) 500 mg PO Q6H PRN 30 days amitriptyline 25 mg PO BEDTIME [id number]-hsgnfgisjxwum-sieg 50-325-40 mg 1 tab PO Q6H PRN 30 days cyclobenzaprine 10 mg PO TID PRN epinephrine 0.3 mg (0.3 mL) IM Q10M PRN estradiol 0.01%(0.1mg/gram) (Estrace) pea sized amount per urethra QHS; 30 days Humira Pen (adalimumab) 40 mg (0.8 mL) subcut QWEEK NS [Regular back brace wear as needed] Shower Chair Shower chair size small HPI HPI f/up stress echo/ HS: Details: Jacinta is a 63-year-old female with past medical history of hyperlipidemia, GERD, atypical chest discomfort, atrial septal aneurysm/PFO who presents for follow-up after recent stress echocardiogram. Today she reports that she does get discomfort in her left chest region. She said it is mostly during physical activity with use of her left arm. She describes having cervical disc disease and issues with her left shoulder. She has limited range of motion of the left shoulder causing pain that does radiate into the left chest region. She has no clear discomfort brought on by just walking. No palpitations, lightheadedness, presyncope, syncope. No shortness of breath, PND, orthopnea or edema. Compliant with meds. Unable to take aspirin as she is on Humira. 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 GERD (gastroesophageal reflux disease) Migraines Surgical History Hx of hysterectomy History of total abdominal hysterectomy Family History Father Hypertension CVD (cardiovascular disease) Mother Hypertension Diabetes Cancer Paternal Grandmother Cancer Brother Colon cancer Social History Housing: Apartment Alcohol intake: current Alcohol intake frequency: holidays/special occasions only Alcohol type: wine Patient Tobacco Use Status: Never used Tobacco e-Cigarette/Vaping Use: Never Used Second Hand Smoke Exposure: No service: No Current occupational status: unemployed Cognitive needs: No Hearing needs: No Vision needs: Yes (glasses ) Review of Systems Const All systems reviewed & are unremarkable except as noted in HPI and below ENT Denies dizziness Card Details: Left shoulder discomfort with radiation into the left chest Reports chest pain, Denies chest pain at rest, Denies chest pain with activity, Denies rapid heart rate, Denies pedal edema, Denies edema, Denies leg edema, Denies lightheadedness, Denies palpitations, Reports dyspnea, Denies dyspnea on exertion and Denies orthopnea Resp Denies cough, Reports dyspnea and Denies dyspnea on exertion GI Denies hematochezia and Denies change in stool character Musc Denies abnormal gait, Reports limited range of motion, Denies muscle cramps, Denies muscle weakness, Denies numbness, Denies radiating pain into limb, Denies stiffness and Denies tingling Neuro Denies abnormal gait, Denies dizziness, Denies numbness and Denies tingling Endo Denies palpitations Physical Exam Vital Signs: Last Vital Signs Pulse 67 08/07/24 09:02 BP 120/60 08/07/24 09:02 BMI result Body Mass Index 30.2 Const General: cooperative, healthy appearing, comfortable and no acute distress Orientation/consciousness: patient oriented x3 Neck Neck: Yes normal visual inspection and Yes no JVD Resp Effort & Inspection: normal respiratory effort Auscultation: clear to auscultation bilaterally, no rales, no rhonchi and no wheezes Cardio Jugular venous distension: no JVD Rate: regular rate Rhythm: regular rhythm Heart sounds: S1 normal heart sound present, S2 normal heart sound present, no murmurs and no rubs Neuro General: patient oriented x3 Extrem General: Yes normal to inspection, No no pedal edema and No calf tenderness Psych Appearance: grossly normal Mental Status: mental status grossly normal Speech and movement: Normal speech and movement present Assessment & Plan Assessment & Plan (1) Chest pain: Code(s): R07.9 - Chest pain, unspecified Category: Medical Qualifiers: Chest pain type: precordial pain Qualified Code(s): R07.2 - Precordial pain Plan: Reports of chest discomfort which sounds atypical. No known history of CAD. She does have cardiac risk factors of age and hyperlipidemia. EKG done last visit showed sinus bradycardia, no acute ST or T-wave abnormalities, rate 59. She underwent a stress echocardiogram on 06/22/2024 with exercise 8 minutes, EKG changes which were thought to be nonspecific and echo showing no evidence of ischemia, diastolic dysfunction or pulmonary hypertension. Test results reviewed with her in detail. Today she reports ongoing issues with left chest discomfort. She also describes issues with her cervical discs and left shoulder. She has reproducible discomfort with range of motion of the left shoulder which is causing pain that radiates into the left chest. Overall her discomfort seems musculoskeletal in nature. Signs and symptoms of true angina reviewed with her. Continue risk factor modification. (2) PFO with atrial septal aneurysm: Code(s): Q21.1 - Atrial septal defect Category: Medical Plan: History of septal aneurysm/PFO. Last echo 09/22/2021 shows EF 65-70%, mobile atrial septum, bubble study mildly positive during Valsalva. Aspirin was previously recommended however she states she is not able to take as she is on Humira. Condition currently stable. Cardiology follow-up 1 year, sooner if needed Plan Time spent on chart review, documentation, interview, assessment Coding Level of Care Code Est Pt Level 3 (62507) Diagnoses Precordial pain R07.2 Chest pain type: precordial pain PFO with atrial septal aneurysm Q21.1 Time Spent (min) 22
== END 2024-08-07 09:35 | disposition home or self-care (01) ==
PROVIDERS: PCP Internal Medicine; Visit Provider Nurse Practitioner Family
DX: R07.2 Precordial pain (principal); Q21.10 Atrial septal defect, unspecified
CPT/HCPCS: 99213

== ENCOUNTER → 2024-08-07 08:54 | Outpatient (BNVA) | payer OTHER, SELFPAY | PROVIDERS: PCP Internal Medicine; Visit Provider Nurse Practitioner Family | DX: R07.2 Precordial pain (principal); Q21.12 Patent foramen ovale | CPT/HCPCS: 99212 ==

== ENCOUNTER 2024-08-27 09:22 | Outpatient (REF) | payer OTHER, SELFPAY ==
[2024-08-27 09:33] LABS: MANUAL DIFF FLAG NO
[2024-08-27 10:08] LABS: Basophils Percent Auto 0.6 % (0-2); Eosinophils Absolute Auto 0.1 X10*3/uL (0.0-0.4); Eosinophils Percent Auto 1.7 % (0-4); Hematocrit 40.1 % (37.0-47.0); Hemoglobin 12.9 g/dl (12.0-16.0); Imm Gran Abs Auto 0.03 X10*3/uL (0.00-0.03); Imm Gran Pct Auto 0.5 % (0.0-0.4); Lymphocytes Absolute Auto 1.5 X10*3/uL (1.2-4.9); Lymphocytes Percent Auto 23.4 % (20-40); Mean Corpuscular HGB Conc 32.2 g/dl (31.0-35.0); Mean Corpuscular Hemoglobin 29.7 pg (27.0-33.0); Mean Corpuscular Volume 92.2 fL (80.0-98.0); Mean Platelet Volume 10.3 fL (9.4-12.3); Monocytes Absolute Auto 0.5 X10*3/uL (0.1-1.2); Monocytes Percent Auto 6.9 % (2-11); Neutrophils Absolute Auto 4.3 x10*3/uL (2.0-8.3); Neutrophils Percent Auto 66.9 % (45-73); Platelet Count 303 X10*3/uL (160-400); Red Blood Count 4.35 X10*6/uL (4.20-5.50); Red Cell Distribution Width 13.6 % (11.0-16.0); White Blood Count 6.5 X10*3/uL (4.8-10.8)
[2024-08-27 10:45] LABS: Alanine Aminotransferase 9 U/L (0-31); Alkaline Phosphatase 96 U/L (39-117); Anion Gap 8 (12-20); Aspartate Amino Transferase 17 U/L (5-31); Bilirubin Total 0.3 mg/dL (0.0-1.0); Blood Urea Nitrogen 16 mg/dL (9-16); C Reactive Protein 0.99 mg/dL (< or = 0.50); Calcium 9.8 mg/dL (8.4-10.2); Carbon Dioxide 30 mmol/L (22-29); Chloride 107 mmol/L (96-108); Estimated Glomerular Filt Rate > 60; Glucose Random 94 mg/dL (60-115); Sodium 141 mmol/L (135-145); Total Protein 7.8 g/dL (6.5-8.0)
[2024-08-27 10:55] LABS: Erythrocyte Sedimentation Rate 40 MM/HR (0-20)
== END 2024-08-27 09:23 | disposition home or self-care (01) ==
LOC: HO.LAB 09:22
PROVIDERS: PCP Internal Medicine; Visit Provider Student in an Organized Health Care Education/Training Program
DX: M06.9 Rheumatoid arthritis, unspecified (principal)
CPT/HCPCS: 36415; 80053; 85025; 85652; 86140

== ENCOUNTER 2024-09-03 09:56 | Outpatient (AMB) | payer OTHER, SELFPAY ==
--- NOTE | 2024-09-03 09:58 | MHC.OFFVIS ---
Vital Signs 09/03/24 10:10 Height 5 ft 2 in Weight 164 lb 10.965 oz BMI 30.1 BP 115/64 Blood Pressure Location Lt brachial Position Sitting Pulse 62 Pulse Source Pulse Oximeter Pulse Oximetry (%) 100 Oxygen Delivery Method Room Air Intake Visit Reasons: RA/CM Intake Note: Patient presents for RA. Allergies ciprofloxacin Allergy (Severe, Verified 09/03/24 10:09) Joint Pain naproxen [NAPROXEN] Allergy (Severe, Verified 09/03/24 10:09) STOMACH BLEED, bleeding, bleeding nitrofurantoin Allergy (Severe, Verified 09/03/24 10:09) Rash meloxicam [MELOXICAM] Allergy (Intermediate, Verified 09/03/24 10:09) RASH, hives prednisone [PREDNISONE] Allergy (Intermediate, Verified 09/03/24 10:09) SWELLING pregabalin [From LYRICA] Allergy (Intermediate, Verified 09/03/24 10:09) SHORTNESS OF BREATH Sulfa (Sulfonamide Antibiotics) Allergy (Intermediate, Verified 09/03/24 10:09) hives trimethoprim [From BACTRIM] Allergy (Intermediate, Verified 09/03/24 10:09) RASH oxycodone [From PERCOCET] Allergy (Mild, Verified 09/03/24 10:09) RASH Penicillins [PENICILLINS] Allergy (Mild, Verified 09/03/24 10:09) RASH Medication List - Last Reconciled 09/03/24 by Seth Billings MD acetaminophen (Tylenol Extra Strength) 500 mg PO Q6H PRN 30 days amitriptyline 25 mg PO BEDTIME [id number]-npqckadywpcyg-[id number] 50-325-40 mg 1 tab PO Q6H PRN 30 days cyclobenzaprine 10 mg PO TID PRN epinephrine 0.3 mg (0.3 mL) IM Q10M PRN estradiol 0.01%(0.1mg/gram) (Estrace) pea sized amount per urethra QHS; 30 days Humira Pen (adalimumab) 40 mg (0.8 mL) subcut QWEEK NS [Regular back brace wear as needed] Shower Chair Shower chair size small HPI Comments Details: 63 y/o female presents for follow-up of Seropositive RA (-ve RF +CCP). patient states that she has not been using the Humira as prescribed. She does plenty of work around the house. She does the injection about once every 4 weeks. She continues to have diffuse pain. Intermittent flare-ups affecting different joints. She states that she keeps moving. She dances for 30 minutes or more most days at home. 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 GERD (gastroesophageal reflux disease) Migraines Surgical History Hx of hysterectomy History of total abdominal hysterectomy Family History Father Hypertension CVD (cardiovascular disease) Mother Hypertension Diabetes Cancer Paternal Grandmother Cancer Brother Colon cancer Social History Housing: Apartment Alcohol intake: current Alcohol intake frequency: holidays/special occasions only Alcohol type: wine Patient Tobacco Use Status: Never used Tobacco e-Cigarette/Vaping Use: Never Used Second Hand Smoke Exposure: No service: No Current occupational status: unemployed Cognitive needs: No Hearing needs: No Vision needs: Yes (glasses ) Female Reproductive History Menstrual Menopause type: surgical Total pregnancies: 5 Full term: 2 Number of Living Children: 2 Ab spontaneous: 3 Review of Systems Const Reports fatigue Musc Reports back pain, Reports arthralgias, Denies joint swelling and Reports stiffness Endo Reports fatigue Physical Exam Vital Signs: Last Vital Signs Pulse 62 09/03/24 10:10 BP 115/64 09/03/24 10:10 Pulse Ox 100 09/03/24 10:10 Oxygen Delivery Method Room Air 09/03/24 10:10 BMI result Body Mass Index 30.1 Const General: cooperative, healthy appearing and comfortable Nutritional Appearance: overweight Orientation/consciousness: patient oriented x3 Limitations: no limitations HEENT Head: Yes normocephalic and Yes atraumatic Mouth: moist mucous membranes Resp Effort & Inspection: normal respiratory effort and able to speak in complete sentences Auscultation: clear to auscultation bilaterally Cardio Rate: regular rate Rhythm: regular rhythm Skin General skin exam: no rashes or lesions noted Neuro General: patient oriented x3 Extrem Other: No swollen joints No wrist tenderness or pain with flexion-extension bilaterally Normal range of motion of both shoulders and elbows with no pain No knee pain bilaterally with full flexion-extension Negative straight leg raise test bilaterally . Negative MTP squeeze test bilateral Assessment & Plan Assessment & Plan (1) Rheumatoid arthritis: Comment: -ve RF + CCP Methotrexate: 10/2018-07/2019-p.o. and subcutaneous- GI upset Humira: 02/15/2020- present, noncompliance Code(s): M06.9 - Rheumatoid arthritis, unspecified Category: Medical Qualifiers: Rheumatoid arthritis location: multiple sites Rheumatoid factor presence: unspecified presence Qualified Code(s): M06.9 - Rheumatoid arthritis, unspecified Plan: This is a 63-year-old female with seropositive RA who presents for follow-up. Patient has not been using the Humira as prescribed. She does the injection every 4 weeks. Continues to have mild intermittent flare-ups. Inflammatory markers are fluctuating. Advised patient to take Humira every other week Hepatitis screening negative Patient apparently had a positive tuberculin test but a negative T spot 04/2023 Chest CTA 2020 showed no signs of tuberculosis Labs before next visit in 3 months (2) High risk medication use: Code(s): Z79.899 - Other ad terminal makeup operator (current) drug therapy Category: Medical Plan: Hold Humira with any signs of infection until infection resolves (3) Fibromyalgia, primary: Code(s): M79.7 - Fibromyalgia Category: Medical Plan: Likely factor in her symptoms. Symptoms mild however. Patient dances almost daily at home. Advised patient to keep a regular form of exercise Plan I spent 25 minutes reviewing patient's chart, evaluating patient, ordering diagnostic workup, counseling patient and documenting in the chart Orders: Orders Comprehensive Met. Panel 3 Months M06.9 - Rheumatoid arthritis, unspecified C Reactive Protein 3 Months M06.9 - Rheumatoid arthritis, unspecified Erythrocyte Sedimentation Rate 3 Months M06.9 - Rheumatoid arthritis, unspecified Complete Blood Count Auto Diff 3 Months M06.9 - Rheumatoid arthritis, unspecified Hepatitis A,B,C Profile 3 Months Z11.59 - Encounter for screening for other viral diseases T Spot TB 3 Months Z11.7 - Encounter for testing for latent tuberculosis infection Coding Level of Care Code Est Pt Level 4 (89804) Diagnoses Rheumatoid arthritis involving multiple sites, unspecified whether rheumatoid factor present M06.9 Rheumatoid arthritis location: multiple sites Rheumatoid factor presence: unspecified presence High risk medication use Z79.899 Fibromyalgia, primary M79.7
[2024-09-03 10:10] VITALS: BP 115/64; PULSE 62; O2SAT 100; BMI 30.1
== END 2024-09-03 10:27 | disposition home or self-care (01) ==
PROVIDERS: PCP Internal Medicine; Visit Provider Student in an Organized Health Care Education/Training Program
DX: M06.9 Rheumatoid arthritis, unspecified (principal); Z79.899 Other long term (current) drug therapy; M79.7 Fibromyalgia
CPT/HCPCS: 99214

== ENCOUNTER → 2024-09-03 09:56 | Outpatient (BNVA) | payer OTHER, SELFPAY | PROVIDERS: PCP Internal Medicine; Visit Provider Student in an Organized Health Care Education/Training Program | DX: M05.9 Rheumatoid arthritis with rheumatoid factor, unspecified (principal); M79.7 Fibromyalgia; Z79.899 Other long term (current) drug therapy | CPT/HCPCS: 99212 ==

== ENCOUNTER 2024-10-09 09:40 | Outpatient (REF) | payer OTHER, SELFPAY ==
[2024-10-09 10:11] LABS: MANUAL DIFF FLAG NO
[2024-10-09 10:24] LABS: Basophils Absolute Auto 0.1 X10*3/uL (0.0-0.2); Basophils Percent Auto 0.7 % (0-2); Eosinophils Absolute Auto 0.2 X10*3/uL (0.0-0.4); Eosinophils Percent Auto 2.5 % (0-4); Hematocrit 40.1 % (37.0-47.0); Hemoglobin 13.1 g/dl (12.0-16.0); Imm Gran Abs Auto 0.04 X10*3/uL (0.00-0.03); Imm Gran Pct Auto 0.6 % (0.0-0.4); Lymphocytes Absolute Auto 1.5 X10*3/uL (1.2-4.9); Mean Corpuscular HGB Conc 32.7 g/dl (31.0-35.0); Mean Corpuscular Hemoglobin 29.6 pg (27.0-33.0); Mean Corpuscular Volume 90.7 fL (80.0-98.0); Mean Platelet Volume 10.1 fL (9.4-12.3); Monocytes Absolute Auto 0.5 X10*3/uL (0.1-1.2); Neutrophils Absolute Auto 4.6 x10*3/uL (2.0-8.3); Neutrophils Percent Auto 67.2 % (45-73); Platelet Count 303 X10*3/uL (160-400); Red Blood Count 4.42 X10*6/uL (4.20-5.50); Red Cell Distribution Width 13.6 % (11.0-16.0); White Blood Count 6.8 X10*3/uL (4.8-10.8)
[2024-10-09 11:08] LABS: Erythrocyte Sedimentation Rate 37 MM/HR (0-20)
[2024-10-09 11:30] LABS: Alanine Aminotransferase 13 U/L (0-31); Alkaline Phosphatase 98 U/L (39-117); Anion Gap 13 (12-20); Aspartate Amino Transferase 29 U/L (5-31); Bilirubin Total 0.5 mg/dL (0.0-1.0); Blood Urea Nitrogen 15 mg/dL (9-16); C Reactive Protein 0.73 mg/dL (< or = 0.50); Calcium 10.3 mg/dL (8.4-10.2); Carbon Dioxide 26 mmol/L (22-29); Chloride 104 mmol/L (96-108); Estimated Glomerular Filt Rate > 60; Glucose Random 94 mg/dL (60-115); Potassium 4.2 mmol/L (3.3-5.1); Sodium 139 mmol/L (135-145); Total Protein 7.7 g/dL (6.5-8.0)
[2024-10-09 11:35] LABS: HBc Num1 0.11 S/CO (0.00-0.79); Hepatitis B Core Antibody Nonreactive (Nonreactive); Hepatitis B Surface Antigen Negative (Negative); ~Hepatitis B Surface Antibody NONREACTIVE (Nonreactive)
== END 2024-10-09 09:41 | disposition home or self-care (01) ==
LOC: HO.LAB 09:40
PROVIDERS: Student in an Organized Health Care Education/Training Program; PCP Internal Medicine; Visit Provider Internal Medicine
DX: M06.9 Rheumatoid arthritis, unspecified (principal); Z23 Encounter for immunization
CPT/HCPCS: 36415; 80053; 85025; 85652; 86140; 86704; 86706; 87340

== ENCOUNTER 2024-11-09 09:48 | Outpatient (AMB) | payer OTHER, SELFPAY ==
--- NOTE | 2024-11-09 00:18 | MHC.OFFVIS ---
Intake Visit Reasons: 9m follow up Intake Note: Patient is present for 9 month follow up Urology Med: None Antibiotic Allergy: Cipro, Bactrim, Nitrofurantion, Penicillins Blood Thinner: None Patient Symptoms: Patient states she is experiencing left lower abdomen pain. Accompanied by: Self / Same As Patient Allergies ciprofloxacin Allergy (Severe, Verified 11/09/24 10:19) Joint Pain naproxen [NAPROXEN] Allergy (Severe, Verified 11/09/24 10:19) STOMACH BLEED, bleeding, bleeding nitrofurantoin Allergy (Severe, Verified 11/09/24 10:19) Rash meloxicam [MELOXICAM] Allergy (Intermediate, Verified 11/09/24 10:19) RASH, hives prednisone [PREDNISONE] Allergy (Intermediate, Verified 11/09/24 10:19) SWELLING pregabalin [From LYRICA] Allergy (Intermediate, Verified 11/09/24 10:19) SHORTNESS OF BREATH Sulfa (Sulfonamide Antibiotics) Allergy (Intermediate, Verified 11/09/24 10:19) hives trimethoprim [From BACTRIM] Allergy (Intermediate, Verified 11/09/24 10:19) RASH oxycodone [From PERCOCET] Allergy (Mild, Verified 11/09/24 10:19) RASH Penicillins [PENICILLINS] Allergy (Mild, Verified 11/09/24 10:19) RASH HPI Comments Details: 11/09/24--9 month FU--Paz is a 63-year-old female, history of rheumatoid arthritis, who is followed for persistent microscopic hematuria, recurrent UTIs and irritative voiding symptoms. She has been prescribed Estrace cream for recurrent UTIs and vaginal atrophy. She has occasional left sided pain, and complains of vaginal bulge. She declines exam today. FU for pelvic exam, renal US prior. She prefers to fu after the holidays. Review of chart: 02/09/2024-- Paz is a 63-year-old female, history of rheumatoid arthritis, who is followed for persistent microscopic hematuria, recurrent UTIs and irritative voiding symptoms. She has been prescribed Estrace cream for recurrent UTIs and vaginal atrophy. She states she is using the cream as directed small amount on her fingertip every other night at bedtime. She states that her urinary stream has been good denies dysuria at this time. She states that her has stage 5 kidney disease and she is concerned about her kidneys as she sometimes gets pain on the left flank to upper abdomen. I have reviewed with her that her BUN and creatinine is within normal limits she had labs on 01/26/2024 (BUN-14, creatinine 0,92). I have also reviewed recent imaging CT scan abdomen and pelvis done in July 2023 kidneys were normal without renal calculi or hydronephrosis. Evaluation-urinalysis leukocytes negative, blood 1+. 03/04/23--Paz is a 62-year-old female who presents to the office for recurrent UTI follow-up. The patient is seen for renal cyst in the past. On previous images the renal cyst meets the criteria for simple cyst [place] 1 and no follow-up is needed. She has recurrent UTI and is here for follow-up to check the urine. The patient was prescribed with Estrace cream to be used vaginally. The patient is using the cream currently. On discussion with the patient today, she complains having badder pain that started about 2 weeks ago. Evaluation today: Blood: 200 Mazin/uL, Leukocytes: 500 Kushal/uL. Microscopic examination:scant bacteria present. Plan: Cystoscopy procedure was discussed with the patient. Urine for Microgen was ordered. Continue with vaginal estrogen cream. Follow-up for office cystoscopy. 05/12/23-- presents to the office for cystoscopy procedure. The patient is here for follow-up for recurrent UTI and renal cyst. The patient also has persistent microscopic hematuria. The patient was treated with doxycycline by her PCP on 04/20/23 Renal US results reviewed?11/12/22-- 4 mm kidney cyst Abdominal US results reviewed?02/23/23-- within normal limits. Evaluation today--Blood: 80 Mazin/uL, leukocytes: 15 Kushal/uL. Cystoscopy findings-- No suspicious bladder lesions. 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 GERD (gastroesophageal reflux disease) Migraines Surgical History Hx of hysterectomy History of total abdominal hysterectomy Family History Father Hypertension CVD (cardiovascular disease) Mother Hypertension Diabetes Cancer Paternal Grandmother Cancer Brother Colon cancer Social History Housing: Apartment Alcohol intake: current Alcohol intake frequency: holidays/special occasions only Alcohol type: wine Patient Tobacco Use Status: Never used Tobacco e-Cigarette/Vaping Use: Never Used Second Hand Smoke Exposure: No service: No Current occupational status: unemployed Cognitive needs: No Hearing needs: No Vision needs: Yes (glasses ) Review of Systems Const All systems reviewed & are unremarkable except as noted in HPI and below Reports no additional complaints Eyes Reports no additional complaints ENT Reports no additional complaints Card Reports no additional complaints Resp Reports no additional complaints GI Reports no additional complaints Reports as per HPI Musc Reports no additional complaints Skin/Breast Reports system reviewed and no additional complaints, except as documented Neuro Reports no additional complaints Psych Reports no additional complaints Endo Reports no additional complaints Jose/Lymph Reports no additional complaints Aller/Immun Reports no additional complaints Results AMB Urinalysis, Automated UA Leukoctes 70 Kushal/uL Last Edit by Christina Renteria CMA on 11/09/24 10:23 UA Nitrite Negative Last Edit by Christina Renteria CMA on 11/09/24 10:23 UA Urobilinogen 0.2 mg/dL Last Edit by Christina Renteria CMA on 11/09/24 10:23 UA Protein 0 mg/dL Last Edit by Christina Renteria CMA on 11/09/24 10:23 UA pH 7.0 Last Edit by Christina Renteria CMA on 11/09/24 10:23 UA Blood 80 Mazin/uL Last Edit by Christina Renteria CMA on 11/09/24 10:23 UA Specific [place] 1.010 Last Edit by Christina Renteria CMA on 11/09/24 10:23 UA Ketone Negative Last Edit by Christina Renteria CMA on 11/09/24 10:23 UA Bilirubin 0 mg/dL Last Edit by Christina Renteria CMA on 11/09/24 10:23 UA Glucose 0 mg/dL Last Edit by Christina Renteria CMA on 11/09/24 10:23 Results Reviewed Results Reviewed: Laboratory Last Values Urine pH (Auto) 7.0 11/09/24 10:14 Specific [place] (Auto) 1.010 11/09/24 10:14 Urine Protein (Auto) 0 mg/dL 11/09/24 10:14 Glucose (UA)(Auto) 0 mg/dL 11/09/24 10:14 Urine Ketones (Auto) Negative 11/09/24 10:14 Urine Blood (Auto) 80 Mazin/uL 11/09/24 10:14 Urine Nitrite (Auto) Negative 11/09/24 10:14 Urine Bilirubin (Auto) 0 mg/dL 11/09/24 10:14 Urine Urobilinogen (Auto) 0.2 mg/dL 11/09/24 10:14 Leukocyte Esterase (Auto) 70 Kushal/uL 11/09/24 10:14 Assessment & Plan Assessment & Plan (1) Microscopic hematuria: Code(s): R31.29 - Other microscopic hematuria Category: Medical (2) Vaginal atrophy: Code(s): N95.2 - Postmenopausal atrophic vaginitis Category: Medical (3) Abdominal pain: Code(s): R10.9 - Unspecified abdominal pain Category: Medical Plan renal US, cont estrace cream, pt complains of vaginal bulge, pelvic exam on fu Orders: Orders AMB Urinalysis Automated 11/09/24 Z13.9 - Encounter for screening, unspecified Urine Cytology 11/09/24 R31.29 - Other microscopic hematuria US retroperitoneal comp 1 Month R31.29 - Other microscopic hematuria Urine Culture 11/09/24 N28.1 - Cyst of kidney, acquired, N39.0 - Urinary tract infection, site not specified, R31.29 - Other microscopic hematuria, R32 - Unspecified urinary incontinence Medications: Refilled estradiol 0.01%(0.1mg/gram) (Estrace) pea sized amount per urethra QHS; 30 days 42.5 grams 3RF complicated uti N39.0 - Urinary tract infection, site not specified Patient Instructions: The patient had an opportunity to ask questions regarding treatment plan. The patient expressed understanding and agreement with the above treatment plan. The patient is aware they should contact our office by phone for worsening of their current condition or the appearance of new symptoms. Compliance is encouraged with any medications and followup testing that is ordered. It is a privilege to be allowed the opportunity to participate in the urologic care of your patient. If you have any questions or concerns regarding treatment for the above conditions please do not hesitate to contact me. The office telephone contact is [phone]. This note is constructed in part using voice recognition software. While every effort has been made to ensure accuracy child care lead teacher errors may have been included. Yours sincerely, Serina Crain MD Coding Level of Care Code Est Pt Level 4 (50822) Diagnoses Microscopic hematuria R31.29 Vaginal atrophy N95.2 Abdominal pain R10.9
--- NOTE | 2024-11-09 10:28 | MHC.OFFVIS ---
Intake Visit Reasons: 9m follow up Allergies ciprofloxacin Allergy (Severe, Verified 11/09/24 10:19) Joint Pain naproxen [NAPROXEN] Allergy (Severe, Verified 11/09/24 10:19) STOMACH BLEED, bleeding, bleeding nitrofurantoin Allergy (Severe, Verified 11/09/24 10:19) Rash meloxicam [MELOXICAM] Allergy (Intermediate, Verified 11/09/24 10:19) RASH, hives prednisone [PREDNISONE] Allergy (Intermediate, Verified 11/09/24 10:19) SWELLING pregabalin [From LYRICA] Allergy (Intermediate, Verified 11/09/24 10:19) SHORTNESS OF BREATH Sulfa (Sulfonamide Antibiotics) Allergy (Intermediate, Verified 11/09/24 10:19) hives trimethoprim [From BACTRIM] Allergy (Intermediate, Verified 11/09/24 10:19) RASH oxycodone [From PERCOCET] Allergy (Mild, Verified 11/09/24 10:19) RASH Penicillins [PENICILLINS] Allergy (Mild, Verified 11/09/24 10:19) RASH PFSH Medical History Renal cyst, acquired, left Chronic lower urinary tract infection Chest pain Infectious diarrhea Left knee pain Hematochezia Pure hypercholesterolemia 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 GERD (gastroesophageal reflux disease) Migraines Surgical History Hx of hysterectomy History of total abdominal hysterectomy Family History Father Hypertension CVD (cardiovascular disease) Mother Hypertension Diabetes Cancer Paternal Grandmother Cancer Brother Colon cancer Social History Housing: Apartment Alcohol intake: current Alcohol intake frequency: holidays/special occasions only Alcohol type: wine Patient Tobacco Use Status: Never used Tobacco e-Cigarette/Vaping Use: Never Used Second Hand Smoke Exposure: No service: No Current occupational status: unemployed Cognitive needs: No Hearing needs: No Vision needs: Yes (glasses ) Results AMB Urinalysis, Automated UA Leukoctes 70 Kushal/uL Last Edit by Christina Renteria CMA on 11/09/24 10:23 UA Nitrite Negative Last Edit by Christina Renteria, KATHLEEN on 11/09/24 10:23 UA Urobilinogen 0.2 mg/dL Last Edit by Christina Renteria, KATHLEEN on 11/09/24 10:23 UA Protein 0 mg/dL Last Edit by Christina Renteria, CAT BREEDER on 11/09/24 10:23 UA pH 7.0 Last Edit by Christina Renteria, CAT BREEDER on 11/09/24 10:23 UA Blood 80 Mazin/uL Last Edit by Christina Renteria, CAT BREEDER on 11/09/24 10:23 UA Specific [place] 1.010 Last Edit by Christina Renteria, CAT BREEDER on 11/09/24 10:23 UA Ketone Negative Last Edit by Christina Renteria, KATHLEEN on 11/09/24 10:23 UA Bilirubin 0 mg/dL Last Edit by Christina Renteria, CAT BREEDER on 11/09/24 10:23 UA Glucose 0 mg/dL Last Edit by Christina Renteria, KATHLEEN on 11/09/24 10:23 Results Reviewed Results Reviewed: Laboratory Last Values Urine pH (Auto) 7.0 11/09/24 10:14 Specific [place] (Auto) 1.010 11/09/24 10:14 Urine Protein (Auto) 0 mg/dL 11/09/24 10:14 Glucose (UA)(Auto) 0 mg/dL 11/09/24 10:14 Urine Ketones (Auto) Negative 11/09/24 10:14 Urine Blood (Auto) 80 Mazin/uL 11/09/24 10:14 Urine Nitrite (Auto) Negative 11/09/24 10:14 Urine Bilirubin (Auto) 0 mg/dL 11/09/24 10:14 Urine Urobilinogen (Auto) 0.2 mg/dL 11/09/24 10:14 Leukocyte Esterase (Auto) 70 Kushal/uL 11/09/24 10:14 Assessment & Plan Assessment & Plan Orders: Orders AMB Urinalysis Automated 11/09/24 Z13.9 - Encounter for screening, unspecified Urine Cytology 11/09/24 R31.29 - Other microscopic hematuria US retroperitoneal comp 1 Month R31.29 - Other microscopic hematuria Urine Culture 11/09/24 N28.1 - Cyst of kidney, acquired, N39.0 - Urinary tract infection, site not specified, R31.29 - Other microscopic hematuria, R32 - Unspecified urinary incontinence Medications: Refilled estradiol 0.01%(0.1mg/gram) (Estrace) pea sized amount per urethra QHS; 30 days 42.5 grams 3RF complicated uti N39.0 - Urinary tract infection, site not specified Coding
== END 2024-11-09 10:32 | disposition home or self-care (01) ==
PROVIDERS: PCP Internal Medicine; Visit Provider Urology
DX: Z13.9 Encounter for screening, unspecified (principal)
CPT/HCPCS: 99214

== ENCOUNTER 2024-11-27 15:45 | Emergency (ER) | payer OTHER, SELFPAY ==
--- NOTE | ~2024-11-27 | XR_ITS ---
EXAMINATION: XR CHEST CLINICAL INFORMATION: chest pain COMPARISON: None available. TECHNIQUE: 2 views of the chest were obtained. FINDINGS: No significant abnormality is noted involving the heart, lungs, mediastinum, bony thorax or soft tissues. XR/XR chest 2V IMPRESSION: Unremarkable chest examination. Electronically signed by: Denis Pratt MD 11/27/2024 04:33 PM [facility]
--- NOTE | 2024-11-27 15:47 | ECG_ITS ---
Test Reason : CP Blood Pressure : / mmHG Vent. Rate : 064 BPM Atrial Rate : 064 BPM P-R Int : 142 ms QRS Dur : 082 ms QT Int : 400 ms P-R-T Axes : 026 024 013 degrees QTc Int : 412 ms Normal sinus rhythm Nonspecific T wave abnormality Abnormal ECG When compared with ECG of 09-AUG-2022 03:26, Criteria for Inferior infarct are no longer Present Nonspecific T wave abnormality now evident in Anterior leads Referred By: Sussy Treviño Electronically Signed By:ALBA MCDONALD MD
--- NOTE | 2024-11-27 16:01 | ED.GENADULT ---
HPI - General Adult General Chief complaint: Chest Pain Stated complaint: Chest pain/SOB Time Seen by Provider: 11/27/24 20:03 Source: patient Mode of arrival: ambulatory Limitations: no limitations History of Present Illness ED Provider: HPI narrative: 63-year-old female with past medical history of hyperlipidemia, GERD, atypical chest discomfort, atrial septal aneurysm/PF had stress echocardiogram on 06/20 which was negative for acute ischemia does have frequent chest pain comes here for chest pain for last 4 days patient does have history of rheumatoid arthritis on Humira and also does have history of fibromyalgia also complaining of pain in the other joints patient is localized to left chest which increases on palpation and movements Related Data Home Medications ?Medication ?Instructions ?Recorded ?Confirmed amitriptyline 25 mg tablet 25 mg PO BEDTIME 09/24/22 09/03/24 Previous Rx's ?Medication ?Instructions ?Recorded Shower Chair #1 ea 04/06/22 acetaminophen 500 mg tablet 500 mg PO Q6H PRN fever or pain 30 10/01/22 (Tylenol Extra Strength) days #120 tabs epinephrine 0.3 mg/0.3 mL 0.3 mg (0.3 mL) IM Q10M PRN 11/09/23 injection, auto-injector anaphylaxis #2 ea [id number]-icoxgnrcethcs-[id number] 1 tab PO Q6H PRN pain 30 days #30 08/13/24 50 mg-325 mg-40 mg tablet tabs cyclobenzaprine 10 mg tablet 10 mg PO TID PRN muscle spasm #90 09/06/24 tabs Regular back brace #1 ea 09/20/24 Humira Pen 40 mg/0.8 mL 40 mg (0.8 mL) subcut QWEEK #4 ea 11/05/24 subcutaneous kit (adalimumab) estradiol 0.01% (0.1 mg/gram) See Rx Instructions .Route .qhs 11/09/24 vaginal cream (Estrace) complicated uti 30 days #42.5 grams tramadol 50 mg tablet 50 mg PO Q8H PRN pain #20 tabs 11/27/24 Allergies Allergy/AdvReac Type Severity Reaction Status Date / Time ciprofloxacin Allergy Severe Joint Pain Verified 11/27/24 16:03 naproxen [NAPROXEN] Allergy Severe STOMACH Verified 11/27/24 16:03 BLEED, bleeding, bleeding nitrofurantoin Allergy Severe Rash Verified 11/27/24 16:03 meloxicam [MELOXICAM] Allergy Intermediate RASH, hives Verified 11/27/24 16:03 prednisone [PREDNISONE] Allergy Intermediate SWELLING Verified 11/27/24 16:03 pregabalin [From LYRICA] Allergy Intermediate SHORTNESS Verified 11/27/24 16:03 OF BREATH Sulfa (Sulfonamide Allergy Intermediate hives Verified 11/27/24 16:03 Antibiotics) trimethoprim [From BACTRIM] Allergy Intermediate RASH Verified 11/27/24 16:03 oxycodone [From PERCOCET] Allergy Mild RASH Verified 11/27/24 16:03 Penicillins [PENICILLINS] Allergy Mild RASH Verified 11/27/24 16:03 Review of Systems Review of Systems: Yes all other systems are reviewed and are negative [facility] Past Medical History Medical History Renal cyst, acquired, left Chronic lower urinary tract infection Chest pain Infectious diarrhea Left knee pain Hematochezia Pure hypercholesterolemia 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 GERD (gastroesophageal reflux disease) Migraines Surgical History Hx of hysterectomy History of total abdominal hysterectomy Family History Family History Father Hypertension CVD (cardiovascular disease) Mother Hypertension Diabetes Cancer Paternal Grandmother Cancer Brother Colon cancer Social History Social History Housing: Apartment Alcohol intake: current Alcohol intake frequency: does not drink Alcohol type: wine Patient Tobacco Use Status: Never used Tobacco Smoked in Last 30 Days: No e-Cigarette/Vaping Use: Never Used Second Hand Smoke Exposure: No Use of substances other than those prescribed or required for medical reasons: No Advance Directives: No Advance Directives Information Provided: No Do you have a plan to hurt others: No Plan service: No Current occupational status: unemployed Cognitive needs: No Hearing needs: No Vision needs: Yes (glasses ) Physical Exam ED Vital Signs: Vital Signs - 24 hr 11/27/24 16:02 11/27/24 19:59 Temperature 97.3 F 97.1 F Pulse Rate 66 60 Respiratory Rate 18 12 Blood Pressure 143/61 H 123/57 L Pulse Oximetry 100 99 Oxygen Delivery Method Room Air Room Air BMI result Body Mass Index 30.5 Appearance: Alert. Oriented X3. No acute distress. Eyes: PERRLA, No Nystagmus ENT: Pharynx normal. Oral Mucosa moist Neck: Normal inspection. Neck supple. CVS: Normal heart rate and rhythm. Pulses normal. Reproducible chest pain left 2nd intercostal space Respiratory: No respiratory distress. Equal air entry bilateral, no wheezing/rales/rhonchi Abdomen: Soft and nontender. Bowel sounds are present, no mass palpable, no CVA tenderness Skin: Skin warm and dry. Normal skin color. Normal skin turgor. Extremities: No lower extremity edema. No calf tenderness Neuro: Oriented X 3. No motor deficit. No sensory deficit.No cerebellar signs , cranial nerves II-XII intact Course Course Course Narrative: This is a rapid medical exam performed by Nic Treviño NP: Additional HPI, ROS, PE not included below will be deferred to primary provider. Patient is a 63-year-old female with history of fibromyalgia, migraines, GERD, history of endocarditis presenting to the ED with complaint of chest pain radiating to left arm. Symptoms began 4 days ago. Plan: EKG, labs, CXR Medications Administered Discontinued Medications Generic Name Dose Route Start Last Admin Trade Name Freq PRN Reason Stop Dose Admin Tramadol HCl 50 mg 11/27/24 20:46 11/27/24 21:06 Tramadol Hcl 50 Mg Tablet PO 11/27/24 20:47 50 mg ONCE ONE Administration Medical Decision Making Medical Decision Making [facility] Narrative: 63-year-old female with past medical history of hyperlipidemia, GERD, atypical chest discomfort, atrial septal aneurysm/PF had stress echocardiogram on 06/20 which was negative for acute ischemia does have frequent chest pain comes here for chest pain for last 4 days EKG and troponin negative patient does have rheumatoid arthritis with other joints pain also likely the cause for the pain 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 11/27/24 16:25 11/27/24 16:25 Labs: Lab Results 11/27/24 Range/Units 16:25 WBC 8.8 (4.8-10.8) X10*3/uL RBC 4.55 (4.20-5.50) X10*6/uL Hgb 13.7 (12.0-16.0) g/dl Hct 41.0 (37.0-47.0) % MCV 90.1 (80.0-98.0) fL MCH 30.1 (27.0-33.0) pg MCHC 33.4 (31.0-35.0) g/dl RDW 13.5 (11.0-16.0) % Plt Count 304 (160-400) X10*3/uL MPV 10.0 (9.4-12.3) fL Immature Gran % (Auto) 0.2 (0.0-0.4) % Neut % (Auto) 71.9 (45-73) % Lymph % (Auto) 19.6 L (20-40) % [place] % (Auto) 6.9 (2-11) % Eos % (Auto) 0.9 (0-4) % Baso % (Auto) 0.5 (0-2) % Lymph # (Auto) 1.7 (1.2-4.9) X10*3/uL [place] # (Auto) 0.6 (0.1-1.2) X10*3/uL Eos # (Auto) 0.1 (0.0-0.4) X10*3/uL Baso # (Auto) 0.0 (0.0-0.2) X10*3/uL Abs Immat Gran (auto) 0.02 (0.00-0.03) X10*3/uL Absolute Neuts (auto) 6.4 (2.0-8.3) x10*3/uL Absolute Nucleated RBC 0.000 (0.0-0.012) X10*3/uL Nucleated RBC % (auto) 0.0 (0.0-0.2) /100WBC PT 10.9 (10.9-12.4) SEC INR 0.9 (0.9-1.1) Sodium 142 (135-145) mmol/L Potassium 4.4 (3.3-5.1) mmol/L Chloride 104 (96-108) mmol/L Carbon Dioxide 28 (22-29) mmol/L Anion Gap 14 (12-20) BUN 18 H (9-16) mg/dL Creatinine 0.87 (0.5-1.4) mg/dL Estim Creat Clear Calc 63.0 Estimated GFR > 60 Random Glucose 117 H (60-115) mg/dL Calcium 10.0 (8.4-10.2) mg/dL Total Bilirubin 0.3 (0.0-1.0) mg/dL AST 26 (5-31) U/L ALT 13 (0-31) U/L Alkaline Phosphatase 101 (39-117) U/L Troponin I High Sens < 2.7 (<3.5-17.0) ng/L B-Natriuretic Peptide 93 (<100) pg/mL Total Protein 8.3 H (6.5-8.0) g/dL Albumin 4.2 (3.5-5.0) g/dL Influenza Type A (PCR) NEGATIVE (Negative) Influenza Type B (PCR) NEGATIVE (Negative) RSV RNA Qual (PCR) NEGATIVE (Negative) SARS-CoV-2 RNA (RT-PCR) NEGATIVE (Negative) Independent Interpretation I performed an independent interpretation of an: EKG Interpretation: Normal sinus rhythm heart rate 64 beats per minute normal interval normal axis no acute STT wave changes no acute ischemia Discharge Plan Discharge Clinical Impression: Chest pain Patient Disposition: Home, Self-Care Instructions: Chest Pain (ED) Additional Instructions: Your chest pain is likely from inflammation of the cartilage Tramadol for pain as prescribed Follow up with your middle school pe teacher Prescriptions: New tramadol 50 mg tablet 50 mg PO Q8H PRN (Reason: pain) Qty: 20 0RF No Action (DME) Shower Chair Misc See Rx Instructions .Route Qty: 1 0RF Rx Instructions: Shower chair size small acetaminophen [Tylenol Extra Strength] 500 mg tablet 500 mg PO Q6H PRN (Reason: fever or pain) 30 Days Qty: 120 3RF epinephrine 0.3 mg/0.3 mL auto-injector 0.3 mg IM Q10M PRN (Reason: anaphylaxis) Qty: 2 0RF Rx Instructions: for 2 doses wlpdlecfyc-qsxvqdljjdbjb-hagn 50-325-40 mg tablet 1 tab PO Q6H PRN (Reason: pain) 30 Days Qty: 30 0RF cyclobenzaprine 10 mg tablet 10 mg PO TID PRN (Reason: muscle spasm) Qty: 90 0RF (DME) Regular back brace See Rx Instructions .Route .MEDSUPPLY Qty: 1 0RF Rx Instructions: wear as needed Humira Pen 40 mg/0.8 mL pen injector kit 40 mg subcut QWEEK Qty: 4 2RF amitriptyline 25 mg tablet 25 mg PO BEDTIME lidocaine HCl 2 % jelly in applicator 10 ml intra-urethral ONCE Qty: 10 0RF estradiol [Estrace] 0.01 % (0.1 mg/gram) cream See Rx Instructions .ROUTE .qhs 30 Days Qty: 42.5 3RF Rx Instructions: pea sized amount per urethra QHS; Print Language: Mexican
[2024-11-27 16:02] VITALS: BP 143/61; PULSE 66; RESP 18; TEMP 36.3; O2SAT 100; BMI 30.5
[2024-11-27 16:30] LABS: MANUAL DIFF FLAG NO
[2024-11-27 16:33] LABS: Basophils Percent Auto 0.5 % (0-2); Eosinophils Absolute Auto 0.1 X10*3/uL (0.0-0.4); Eosinophils Percent Auto 0.9 % (0-4); Hemoglobin 13.7 g/dl (12.0-16.0); Imm Gran Abs Auto 0.02 X10*3/uL (0.00-0.03); Imm Gran Pct Auto 0.2 % (0.0-0.4); Lymphocytes Absolute Auto 1.7 X10*3/uL (1.2-4.9); Lymphocytes Percent Auto 19.6 % (20-40); Mean Corpuscular HGB Conc 33.4 g/dl (31.0-35.0); Mean Corpuscular Hemoglobin 30.1 pg (27.0-33.0); Mean Corpuscular Volume 90.1 fL (80.0-98.0); Monocytes Absolute Auto 0.6 X10*3/uL (0.1-1.2); Monocytes Percent Auto 6.9 % (2-11); Neutrophils Absolute Auto 6.4 x10*3/uL (2.0-8.3); Neutrophils Percent Auto 71.9 % (45-73); Platelet Count 304 X10*3/uL (160-400); Red Blood Count 4.55 X10*6/uL (4.20-5.50); Red Cell Distribution Width 13.5 % (11.0-16.0); White Blood Count 8.8 X10*3/uL (4.8-10.8)
[2024-11-27 16:44] LABS: INTERNATIONAL NORM RATIO 0.9 (0.9-1.1); Prothrombin Time 10.9 SEC (10.9-12.4)
[2024-11-27 16:49] LABS: Alanine Aminotransferase 13 U/L (0-31); Albumin Level 4.2 g/dL (3.5-5.0); Alkaline Phosphatase 101 U/L (39-117); Anion Gap 14 (12-20); Aspartate Amino Transferase 26 U/L (5-31); Bilirubin Total 0.3 mg/dL (0.0-1.0); Blood Urea Nitrogen 18 mg/dL (9-16); Carbon Dioxide 28 mmol/L (22-29); Chloride 104 mmol/L (96-108); Estimated Glomerular Filt Rate > 60; Glucose Random 117 mg/dL (60-115); Potassium 4.4 mmol/L (3.3-5.1); Sodium 142 mmol/L (135-145); Total Protein 8.3 g/dL (6.5-8.0)
[2024-11-27 16:54] LABS: B Type Natriuretic Peptide 93 pg/mL (<100)
[2024-11-27 16:57] LABS: Troponin-I High Sensitivity < 2.7 ng/L (<3.5-17.0)
[2024-11-27 17:15] LABS: Influenza A PCR NEGATIVE (Negative); Influenza B PCR NEGATIVE (Negative); Resp Syncy Virus RNA Qual PCR NEGATIVE (Negative); SARS COV2 PCR INHOUSE NEGATIVE (Negative)
[2024-11-27 19:59] VITALS: BP 123/57; PULSE 60; RESP 12; TEMP 36.2; O2SAT 99
[2024-11-27] MEDS: traMADoL HCL 50 MG TABLET PO (21:06)
--- NOTE | 2024-11-27 21:07 | PC.NURSE ---
pt a&o, reports chest pain has improved, medicated per mar. no distress at this time.
[2024-11-27 21:41] VITALS: BP 130/60; PULSE 61; RESP 12; TEMP 36.6; O2SAT 99
[2024-11-27 21:42] VITALS: BP 130/60; PULSE 61; RESP 12; TEMP 36.6; O2SAT 99
--- NOTE | 2024-11-27 21:48 | PC.NURSE ---
Reviewed discharge instruction reviewed with pt, pt verbalized understanding, no sign of distress.
== END 2024-11-27 21:42 | disposition home or self-care (01) ==
PROVIDERS: Registered Nurse Emergency; Emergency Provider Internal Medicine; PCP Internal Medicine
DX: R07.89 Other chest pain (principal); R06.02 Shortness of breath; R94.31 Abnormal electrocardiogram [ECG] [EKG]; Z79.899 Other long term (current) drug therapy; Z03.818 Encounter for observation for suspected exposure to other biological agents ruled out
CPT/HCPCS: 0241U; 71046; 80053; 83880; 84484; 85025; 85610; 93005; 99283; 99285

== ENCOUNTER → 2024-11-27 15:47 | Outpatient (BNV) | payer OTHER, SELFPAY | PROVIDERS: Emergency Provider Internal Medicine; PCP Internal Medicine; Visit Provider Internal Medicine Cardiovascular Disease | DX: R94.31 Abnormal electrocardiogram [ECG] [EKG] (principal) | CPT/HCPCS: 93010 ==

== ENCOUNTER → 2024-11-27 16:04 | Outpatient (BNV) | payer OTHER, SELFPAY | PROVIDERS: PCP Internal Medicine; Visit Provider Radiology Diagnostic Radiology | DX: R07.9 Chest pain, unspecified (principal) | CPT/HCPCS: 71046 ==

== ENCOUNTER 2024-12-05 08:25 | Outpatient (REF) | payer OTHER, SELFPAY ==
[2024-12-05 08:49] LABS: MANUAL DIFF FLAG NO
[2024-12-05 08:59] LABS: Basophils Absolute Auto 0.1 X10*3/uL (0.0-0.2); Basophils Percent Auto 0.8 % (0-2); Eosinophils Absolute Auto 0.2 X10*3/uL (0.0-0.4); Eosinophils Percent Auto 2.8 % (0-4); Hematocrit 39.3 % (37.0-47.0); Hemoglobin 12.8 g/dl (12.0-16.0); Imm Gran Abs Auto 0.03 X10*3/uL (0.00-0.03); Imm Gran Pct Auto 0.4 % (0.0-0.4); Lymphocytes Absolute Auto 1.6 X10*3/uL (1.2-4.9); Lymphocytes Percent Auto 20.8 % (20-40); Mean Corpuscular HGB Conc 32.6 g/dl (31.0-35.0); Mean Corpuscular Hemoglobin 29.6 pg (27.0-33.0); Mean Platelet Volume 9.9 fL (9.4-12.3); Monocytes Absolute Auto 0.6 X10*3/uL (0.1-1.2); Monocytes Percent Auto 8.1 % (2-11); Neutrophils Percent Auto 67.1 % (45-73); Platelet Count 305 X10*3/uL (160-400); Red Blood Count 4.32 X10*6/uL (4.20-5.50); Red Cell Distribution Width 13.3 % (11.0-16.0); White Blood Count 7.5 X10*3/uL (4.8-10.8)
[2024-12-05 09:22] LABS: Alanine Aminotransferase 10 U/L (0-31); Albumin Level 3.9 g/dL (3.5-5.0); Alkaline Phosphatase 96 U/L (39-117); Anion Gap 11 (12-20); Aspartate Amino Transferase 21 U/L (5-31); Bilirubin Total 0.4 mg/dL (0.0-1.0); Blood Urea Nitrogen 16 mg/dL (9-16); Carbon Dioxide 29 mmol/L (22-29); Chloride 107 mmol/L (96-108); Estimated Glomerular Filt Rate > 60; Glucose Random 94 mg/dL (60-115); Potassium 3.9 mmol/L (3.3-5.1); Sodium 143 mmol/L (135-145); Total Protein 7.4 g/dL (6.5-8.0)
[2024-12-05 09:39] LABS: Erythrocyte Sedimentation Rate 28 MM/HR (0-20)
[2024-12-05 09:46] LABS: HBc Num1 0.15 S/CO (0.00-0.79); HBsAGNum1 0.37 S/CO (0.00-0.99); Hepatitis A Antibody IgM 0.99 Index (0-0.79); Hepatitis B Core Antibody Nonreactive (Nonreactive); Hepatitis B Surface Antigen Negative (Negative); ~HepC Num1 0.14 S/CO (0.00-0.79); ~Hepatitis A Antibody IgM GRAYZONE (Nonreactive); ~Hepatitis B Surface Antibody NONREACTIVE (Nonreactive); ~Hepatitis C Antibody Nonreactive (Nonreactive)
[2024-12-08 15:09] LABS: TS Negative Control Passed; TS Panel A 0; TS Panel B 0; TS Positive Control Passed; TSpotTB Negative (Negative)
== END 2024-12-05 08:26 | disposition home or self-care (01) ==
LOC: HO.LAB 08:25
PROVIDERS: PCP Internal Medicine; Visit Provider Student in an Organized Health Care Education/Training Program
DX: M06.9 Rheumatoid arthritis, unspecified (principal); Z11.59 Encounter for screening for other viral diseases; Z11.7 Encounter for testing for latent tuberculosis infection
CPT/HCPCS: 36415; 80053; 85025; 85652; 86140; 86481; 86704; 86706; 86709; 86803; 87340

== ENCOUNTER 2024-12-12 12:00 | Outpatient (AMB) | payer OTHER, SELFPAY ==
--- NOTE | 2024-12-12 12:35 | A.OFFPC_ITS ---
Vital Signs 12/12/24 12:38 Height 5 ft 2 in Weight 161 lb BMI 29.4 BP 120/82 Blood Pressure Location Lt brachial Position Sitting Intake Visit Reasons: pe Intake Note: patient here for a physical exam Automobile Service Station Attendant Required: Yes Automobile Service Station Attendant Language: Political Science Faculty Member Name: Paz Walters MD Information Interpreted: non-clinical & clinical Accompanied by: Self / Same As Patient Allergies ciprofloxacin Allergy (Severe, Verified 12/12/24 12:50) Joint Pain naproxen [NAPROXEN] Allergy (Severe, Verified 12/12/24 12:50) STOMACH BLEED, bleeding, bleeding nitrofurantoin Allergy (Severe, Verified 12/12/24 12:50) Rash meloxicam [MELOXICAM] Allergy (Intermediate, Verified 12/12/24 12:50) RASH, hives prednisone [PREDNISONE] Allergy (Intermediate, Verified 12/12/24 12:50) SWELLING pregabalin [From LYRICA] Allergy (Intermediate, Verified 12/12/24 12:50) SHORTNESS OF BREATH Sulfa (Sulfonamide Antibiotics) Allergy (Intermediate, Verified 12/12/24 12:50) hives trimethoprim [From BACTRIM] Allergy (Intermediate, Verified 12/12/24 12:50) RASH oxycodone [From PERCOCET] Allergy (Mild, Verified 12/12/24 12:50) RASH Penicillins [PENICILLINS] Allergy (Mild, Verified 12/12/24 12:50) RASH Medication List - Last Reconciled 12/12/24 by Paz Walters MD acetaminophen (Tylenol Extra Strength) 500 mg PO Q6H PRN 30 days amitriptyline 25 mg PO BEDTIME [id number]-xibmuhicejefw-mawm 50-325-40 mg 1 tab PO Q6H PRN 30 days cyclobenzaprine 10 mg PO TID PRN epinephrine 0.3 mg (0.3 mL) IM Q10M PRN estradiol 0.01%(0.1mg/gram) (Estrace) pea sized amount per urethra QHS; 30 days Humira Pen (adalimumab) 40 mg (0.8 mL) subcut QWEEK NS [Regular back brace wear as needed] Shower Chair Shower chair size small tramadol 50 mg PO Q8H PRN Tobacco use date assessed: 12/12/24 Fall risk assessment: No Falls in past year Last assessed Fall Risk: 12/12/24 Dental Screening Dental Screen Date: 10/27/23 HPI HPI Comments History of Present Illness Details The patient is a 64-year-old female presenting with an annual physical examination. She reports a history of hysterectomy performed due to benign issues with bleeding, which required attention to bladder concerns and complications of bleeding. Her last mammogram was more than a year ago, and no recent bone densitometry is noted. The patient also experiences rheumatoid arthritis for which she receives Humira but recently withheld its use due to diarrhea and nausea that began on a Tuesday and included vomiting. By Tuesday, these symptoms had subsided, and she was feeling more settled. White blood cell count was normal in the last lab, as well as results for diabetes, cholesterol pending repeat, and the last test showed a drop in levels. Humira for arthritis is managed by rheumatology, whereas pain management involves Tylenol when necessary and Amitriptyline nightly. She also uses Fluoriset for migraines occasionally, Flexeril for muscular spasms, Tramadol occasionally for chest pain induced by muscular strain, estradiol cream, and Lipolira. Migraine headaches are also present due to Arnold Chiari formation monitored by neurology. She notes pain is radiating to one specific head region, described as hitting with intensity. She self-monitors symptoms regularly; however, the underlying condition is managed by neurology. A recent gastrointestinal upset featured vomiting and diarrhea commencing over one weekend, suspected viral gastroenteritis, which eventually led to the resolution of symptoms. [facility] Medical History Renal cyst, acquired, left Chronic lower urinary tract infection Chest pain Infectious diarrhea Left knee pain Hematochezia Pure hypercholesterolemia 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 GERD (gastroesophageal reflux disease) Migraines Surgical History Hx of hysterectomy History of total abdominal hysterectomy Family History Father Hypertension CVD (cardiovascular disease) Mother Hypertension Diabetes Cancer Paternal Grandmother Cancer Brother Colon cancer Social History (Updated 12/12/24 @ 12:57 by Paz Walters MD) Housing: Apartment Alcohol intake: current Alcohol intake frequency: does not drink Alcohol type: wine Patient Tobacco Use Status: Never used Tobacco e-Cigarette/Vaping Use: Never Used Second Hand Smoke Exposure: No service: No Current occupational status: unemployed Cognitive needs: No Hearing needs: No Vision needs: Yes (glasses ) Questionnaire PHQ-9 Over the last 2 weeks, how often have you been bothered by any of the following problems? 1. Little interest or pleasure in doing things: not at all 2. Feeling down, depressed, or hopeless: not at all 3. Trouble falling or staying asleep, or sleeping too much: not at all 4. Feeling tired or having little energy: not at all 5. Poor appetite or overeating: not at all 6. Feeling bad about yourself - or that you are a failure or have let yourself or your family down: not at all 7. Trouble concentrating on things, such as reading the newspaper or watching television: not at all 8. Moving or speaking so slowly that other people could have noticed. Or the o pposite - being so fidgety or restless that you have been moving around a lot more than usual: not at all 9. Thoughts that you would be better off or of hurting yourself in some way: not at all Total score: 0 Depression Screening Interpretation: Negative Depression Screening Done: Yes 48867 - PHQ-9 Billing: Yes Source: Developed by Drs. Red Arce, Julianna Woodard, Pablo Powers and colleagues, with an educational elvia from [employer]. Thrive Questionnaire Date Thrive assessed: 12/12/24 I am a: Patient What is your living situation today?: I have a steady place to live Within the past 12 months, did the food you bought not last and you didn't have the money to get more?: Never true Within the past 12 months, did you worry whether your food would run out before you got money to buy more?: Never true Do you have trouble paying for medicines?: No Do you have trouble getting transportation to medical appointments?: No Do you have trouble paying your heating and electricity bill?: No Do you have trouble taking care of your child, family member or friend?: No Do you have trouble with day-to-day activities such as bathing, preparing meals, shopping, managing finances, etc.?: No Are you currently unemployed and looking for a job?: No Are you interested in more education?: No Please select the resources that you would like help with: None Currently or been in a relationship where the following occur: No concerns reported THRIVE Score: 0 AUDIT C Alcohol Use Questionnaire (AUDIT-C) 1. How often do you have a drink containing alcohol?: Never Total Score: 0 NISH-7 AMB Questionnaire NISH-7 Date NISH - 7 assessed: 12/12/24 Feeling nervous, anxious, or on edge: 0 = Not at all Not being able to stop or control worryin = Not at all Worrying too much about different things: 0 = Not at all Trouble relaxin = Not at all Being so restless that it is hard to sit still: 0 = Not at all Becoming easily annoyed or irritable: 0 = Not at all Feeling afraid as if something awful might happen: 0 = Not at all Total NISH-7 score (0-4 normal; 5-9 mild; 10-14 moderate; 15-21 severe): 0 Source: Developed by Drs. Red Arce, Julianna Woodard, Pablo Powers and colleagues, with an educational elvia from [employer]. NISH-7 Assessment Billing NISH-7 Assessment Tool: NISH-7 Assessment 44417 Review of Systems Const All systems reviewed & are unremarkable except as noted in HPI and below Card Denies chest pain at rest, Denies chest pain with activity, Denies edema, Denies irregular heart rhythm, Denies claudication, Denies dyspnea, Denies dyspnea on exertion, Denies orthopnea, Denies paroxysmal nocturnal dyspnea and Denies slow heart rate Resp Denies cough, Denies dyspnea and Denies dyspnea on exertion Physical exam (Primary Care) Vital Signs: Last Vital Signs BP 120/82 12/12/24 12:38 BMI result Body Mass Index 29.4 Tobacco/Smoking Status: Tobacco use Status Tobacco use date assessed 12/12/24 12/12/24 12:43 Patient Tobacco Use Status Never used Tobacco 12/12/24 12:57 e-Cigarette/Vaping Use Never Used 12/12/24 12:57 PHQ-9: PHQ-9 Score PHQ-9: Total score 0 12/12/24 13:10 Depression Screening Interpretation: Negative Thrive Assessment: Date of Thrive Assessment Date Thrive assessed 12/12/24 12/12/24 12:36 Currently or been in a relationship where the following occur: No concerns reported HENNJ Head: Yes normal to inspection, Yes normocephalic and Yes atraumatic Ears: external ears normal Eyes General: appearance normal, both eyes and all related structures Eyelids: Yes eyelids normal Conjunctivae: conjunctivae normal Neck Neck: Yes normal visual inspection and Yes supple Resp Effort & Inspection: normal respiratory effort Auscultation: clear to auscultation bilaterally Cardio Jugular venous distension: no JVD Rate: regular rate Rhythm: regular rhythm Heart sounds: S1 normal heart sound present and S2 normal heart sound present GI Inspection: Yes normal to inspection Palpation (GI): Soft to palpation and nontender Auscultation: normal bowel sounds Skin General skin exam: no rashes or lesions noted Neuro General: no focal motor deficits Extrem General: Yes full ROM Psych Appearance: grossly normal Office Procedures Flu Questionnaire Does the patient have a severe egg allergy?: No Does the patient have severe life threatening allergies?: No Does the patient have a fever or illness today?: No Has the patient ever had Guillain-[place] Syndrome?: No Has the patient ever had any past reaction to a flu shot?: No Immunizations Fluarix Triv 4828-3625 (PF) 45 mcg (15 mcg x 3)/0.5 mL IM syringe Performing Provider: Paz Walters MD [facility] [place] [place] Administered by: VJ Gamez on 12/12/24 13:10 Dose Route Admin Location Dispensed Lot Number Expiration Date [facility] Wet End Operator 0.5 mL IM Left Deltoid 0.5 mL [id number] 05/27/25 69501-377-68 [employer] VIS Given Date VIS Provided VIS Publication Date 12/12/24 Single Vaccine 21 Eligibility Eligibility Date Funding Source Not [facility] Eligible 12/12/24 Private Coding Level of Care Code Est Pt Prev Care 40-64y(52272) Diagnoses Physical exam Z00.00 Rheumatoid arthritis involving multiple sites, unspecified whether rheumatoid factor present M06.9 Rheumatoid arthritis location: multiple sites Rheumatoid factor presence: unspecified presence Arnold-Chiari malformation Q07.00 Additional Codes NISH-7 Assessment Billing - NISH-7 Assessment Tool: NISH-7 Assessment 33554 ([id number]) PHQ-9 - 75276 - PHQ-9 Billing: Yes ([id number]) Assessment & Plan Assessment & Plan (1) Physical exam: Code(s): Z00.00 - Encounter for general adult medical examination without abnormal findings Category: Medical (2) Rheumatoid arthritis: Comment: -ve RF + CCP Methotrexate: 10/2018-07/2019-p.o. and subcutaneous- GI upset Humira: 02/15/2020- present, noncompliance Code(s): M06.9 - Rheumatoid arthritis, unspecified Category: Medical Qualifiers: Rheumatoid arthritis location: multiple sites Rheumatoid factor presence: unspecified presence Qualified Code(s): M06.9 - Rheumatoid arthritis, unspecified (3) Arnold-Chiari malformation: Comment: Follows with neurology Dr Link Code(s): Q07.00 - Arnold-Chiari syndrome without spina bifida or hydrocephalus Category: Medical Plan - Order repeat mammogram and assess results when available. - Check bone densitometry need in line with women's health maintenance. - Manage rheumatoid arthritis following a close review of Humira discontinuation symptoms and subsequent gut and nausea side effects. - Continue monitoring and supporting migraine management, coordinating ongoing neuro-related headache evaluation. - Verify cholesterol levels and adjust lipid-lowering therapy if results indicate a need. - Address musculoskeletal chest pain with target exercises and medications including Flexeril and occasional Tramadol. - Ensure updated information and care around past hysterectomy and gynecological health. Patient was informed and verbally consented to the use of an ambient scribe for clinic note documentation during this visit. During this visit, I discussed the plan for ongoing health maintenance, emphasizing the repeat mammogram and cholesterol check. We addressed the patient?s recent gastrointestinal upset, likely a viral gastroenteritis, following discussion about Humira. Options to alleviate musculoskeletal chest pain and management of migraines, including possible interventions in neurology, were reviewed. I reassured her white blood cells and diabetes screen were within normal limits, aiming to maintain steady monitoring. Regarding social habits, moderate alcohol is supported while discouraging any tobacco initiation. Orders: Orders Influenza [id number] Immunization Today Z23 - Encounter for immunization XR DEXA axial skeleton Today Z78.0 - Asymptomatic menopausal state Lipid Panel Today E78.5 - Hyperlipidemia, unspecified MM tomosynthesis screening BI Today Z12.31 - Encounter for screening mammogram for malignant neoplasm of breast Patient Instructions: - Repeat the mammogram as scheduled and follow up with any abnormal results. - Return for pending cholesterol test and discuss management solutions. - Resume medications for rheumatoid arthritis as directed and seek immediate care for any adverse symptoms with Humira. - Monitor for reoccurring gastrointestinal symptoms and report if they return. - Continue to track migraines and utilize prescribed medications appropriately. - Follow guidance for musculoskeletal pain using prescribed therapies. - Practice moderation with alcohol consumption; do not smoke or start any tobacco products. - Engage in physical activities within comfort levels and participate in suggested exercises to manage musculoskeletal symptoms.
[2024-12-12 12:38] VITALS: BP 120/82; BMI 29.4
== END 2024-12-12 13:12 | disposition home or self-care (01) ==
PROVIDERS: PCP Internal Medicine; Visit Provider Internal Medicine
DX: Z00.00 Encounter for general adult medical examination without abnormal findings (principal); M06.9 Rheumatoid arthritis, unspecified; Q07.00 Arnold-Chiari syndrome without spina bifida or hydrocephalus; Z23 Encounter for immunization

== ENCOUNTER → 2024-12-12 12:00 | Outpatient (BNVA) | payer OTHER, SELFPAY | PROVIDERS: PCP Internal Medicine; Visit Provider Internal Medicine | DX: Z00.00 Encounter for general adult medical examination without abnormal findings (principal); Q07.00 Arnold-Chiari syndrome without spina bifida or hydrocephalus; M06.9 Rheumatoid arthritis, unspecified; E78.5 Hyperlipidemia, unspecified; Z23 Encounter for immunization; Z78.0 Asymptomatic menopausal state | CPT/HCPCS: 90471; 90656; 96127; 99396 ==

== ENCOUNTER 2024-12-13 10:10 | Outpatient (AMB) | payer OTHER, SELFPAY ==
--- NOTE | 2024-12-13 10:31 | A.OFFVIS_ITS ---
Vital Signs 12/13/24 10:37 Height 5 ft 2 in Weight 162 lb 4.163 oz BMI 29.7 BP 116/70 Blood Pressure Location Lt brachial Position Sitting Respiration 16 Pulse 67 Pulse Source Pulse Oximeter Pulse Oximetry (%) 99 Oxygen Delivery Method Room Air Intake Visit Reasons: RA Intake Note: Patient presents for RA. Allergies ciprofloxacin Allergy (Severe, Verified 12/13/24 10:34) Joint Pain naproxen [NAPROXEN] Allergy (Severe, Verified 12/13/24 10:34) STOMACH BLEED, bleeding, bleeding nitrofurantoin Allergy (Severe, Verified 12/13/24 10:34) Rash meloxicam [MELOXICAM] Allergy (Intermediate, Verified 12/13/24 10:34) RASH, hives prednisone [PREDNISONE] Allergy (Intermediate, Verified 12/13/24 10:34) SWELLING pregabalin [From LYRICA] Allergy (Intermediate, Verified 12/13/24 10:34) SHORTNESS OF BREATH Sulfa (Sulfonamide Antibiotics) Allergy (Intermediate, Verified 12/13/24 10:34) hives trimethoprim [From BACTRIM] Allergy (Intermediate, Verified 12/13/24 10:34) RASH oxycodone [From PERCOCET] Allergy (Mild, Verified 12/13/24 10:34) RASH Penicillins [PENICILLINS] Allergy (Mild, Verified 12/13/24 10:34) RASH Tramadol Allergy (Mild, Uncoded 12/13/24 10:34) Itching Medication List - Last Reconciled 12/13/24 by Seth Billings MD acetaminophen (Tylenol Extra Strength) 500 mg PO Q6H PRN 30 days amitriptyline 25 mg PO BEDTIME hpwhdgfnzw-nzhbhrkdgykbq-etvb 50-325-40 mg 1 tab PO Q6H PRN 30 days cyclobenzaprine 10 mg PO TID PRN epinephrine 0.3 mg (0.3 mL) IM Q10M PRN estradiol 0.01%(0.1mg/gram) (Estrace) pea sized amount per urethra QHS; 30 days Humira Pen (adalimumab) 40 mg (0.8 mL) subcut QWEEK NS [Regular back brace wear as needed] Shower Chair Shower chair size small HPI Comments Details: 64 y/o female presents for follow-up of Seropositive RA (-ve RF +CCP). She states that she has been doing the Humira injection every other week. She states that her joints are doing better overall, she continues to have some pain in her hands but overall doing better. 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 GERD (gastroesophageal reflux disease) Migraines Surgical History Hx of hysterectomy History of total abdominal hysterectomy Family History Father Hypertension CVD (cardiovascular disease) Mother Hypertension Diabetes Cancer Paternal Grandmother Cancer Brother Colon cancer Social History Housing: Apartment Alcohol intake: current Alcohol intake frequency: does not drink Alcohol type: wine Patient Tobacco Use Status: Never used Tobacco e-Cigarette/Vaping Use: Never Used Second Hand Smoke Exposure: No service: No Current occupational status: unemployed Cognitive needs: No Hearing needs: No Vision needs: Yes (glasses ) Female Reproductive History Menstrual Menopause type: surgical Total pregnancies: 5 Full term: 2 Number of Living Children: 2 Ab spontaneous: 3 Review of Systems Musc Reports arthralgias, Denies joint swelling and Reports stiffness Physical Exam Vital Signs: Last Vital Signs Pulse 67 12/13/24 10:37 Resp 16 12/13/24 10:37 BP 116/70 12/13/24 10:37 Pulse Ox 99 12/13/24 10:37 Oxygen Delivery Method Room Air 12/13/24 10:37 BMI result Body Mass Index 29.7 Const General: cooperative, healthy appearing and comfortable Nutritional Appearance: overweight Orientation/consciousness: patient oriented x3 Limitations: no limitations HEENT Head: Yes normocephalic and Yes atraumatic Mouth: moist mucous membranes Resp Effort & Inspection: normal respiratory effort and able to speak in complete sentences Auscultation: clear to auscultation bilaterally Cardio Rate: regular rate Rhythm: regular rhythm Skin General skin exam: no rashes or lesions noted Neuro General: patient oriented x3 Extrem Other: No swollen joints No wrist tenderness or pain with flexion-extension bilaterally Normal range of motion of both shoulders and elbows with no pain No knee pain bilaterally with full flexion-extension Negative straight leg raise test bilaterally . Negative MTP squeeze test bilateral Assessment & Plan Assessment & Plan (1) Rheumatoid arthritis: Comment: -ve RF + CCP Methotrexate: 10/2018-07/2019-p.o. and subcutaneous- GI upset Humira: 02/15/2020- present, intermittently compliant Code(s): M06.9 - Rheumatoid arthritis, unspecified Category: Medical Qualifiers: Rheumatoid arthritis location: multiple sites Rheumatoid factor presence: unspecified presence Qualified Code(s): M06.9 - Rheumatoid arthritis, unspecified Plan: This is a 64-year-old female with seropositive RA who presents for follow-up. Has been using the Humira 40 mg injection every other week. She feels much better overall. on exam there is no active synovitis. Continue with Humira 40 mg every other week. 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 Panel 4 Months M06.9 - Rheumatoid arthritis, unspecified Coding Level of Care Code Est Pt Level 4 (18807) Diagnoses Rheumatoid arthritis involving multiple sites, unspecified whether rheumatoid factor present M06.9 Rheumatoid arthritis location: multiple sites Rheumatoid factor presence: unspecified presence High risk medication use Z79.899
[2024-12-13 10:37] VITALS: BP 116/70; PULSE 67; RESP 16; O2SAT 99; BMI 29.7
== END 2024-12-13 10:58 | disposition home or self-care (01) ==
PROVIDERS: PCP Internal Medicine; Visit Provider Student in an Organized Health Care Education/Training Program
DX: M06.9 Rheumatoid arthritis, unspecified (principal); Z79.899 Other long term (current) drug therapy
CPT/HCPCS: 99214

== ENCOUNTER → 2024-12-13 10:10 | Outpatient (BNVA) | payer OTHER, SELFPAY | PROVIDERS: PCP Internal Medicine; Visit Provider Student in an Organized Health Care Education/Training Program | DX: M06.9 Rheumatoid arthritis, unspecified (principal); Z79.899 Other long term (current) drug therapy | CPT/HCPCS: 99212 ==

== ENCOUNTER 2025-01-25 09:03 | Outpatient (REF) | payer OTHER, SELFPAY ==
--- NOTE | ~2025-01-25 | MM_ITS ---
EXAMINATION: MM SCREENING DIGITAL BREAST TOMOSYNTHESIS, BILATERAL CLINICAL INFORMATION: Screening. Asymptomatic. COMPARISON: Mammography: Comparison is made with available priors TECHNIQUE: Digital breast mammography with tomosynthesis is performed in both the craniocaudal and mediolateral oblique views along with computer-aided detection (CAD). FINDINGS: There are scattered areas of fibroglandular density (ACR BI-RADS breast composition Category b). There are no significant masses, abnormal calcifications, or other abnormalities. MM/MM tomosynthesis screening BI IMPRESSION: No mammographic evidence of malignancy. ASSESSMENT: BI-RADS BI-RADS 1 - Negative RECOMMENDATION: Routine annual mammography screening. 1 year F/U This examination should not preclude the clinical evaluation of a suspicious palpable abnormality. This patient's information was entered into a reminder system with a target due date for their next mammogram. Electronically signed by: Gladys Raza DO 01/28/2025 05:00 PM [facility]
--- NOTE | ~2025-01-25 | MM_ITS ---
EXAMINATION: DXA BONE DENSITY AXIAL HISTORY: Estrogen deficiency TECHNIQUE: [employer] Dual energy absorptiometry (DEXA) of the lumbar spine, total left hip, and femoral neck was performed. COMPARISON: There are no prior studies for comparison. FINDINGS: The bone mineral density of the lumbar spine is 0.841 with a T-score of -2.8, and a Z-score of -1.6. The bone mineral density of the left total hip is 1.031 with a T-score of 0.2, and a Z-score of 1.1. The bone mineral density of the left femoral neck is 0.845 with a T-score of -1.4, and a Z-score of -0.1. MM/XR DEXA axial skeleton IMPRESSION: Based on bone mineral density, and according to World Health Organization (WHO) criteria, the diagnosis is consistent with osteoporosis. All bone density values are in grams per centimeter squared (g/cm2). Statistically, 68% of repeat scans fall within 1 SD (+/- 0.010 g/cm2 for AP spine L1-L4) and 1 SD (+/- 0.012 g/cm2 for femur total) FRAX is a trademark of the [employer]'s [employer] Metabolic Bone Disease, a World Health Organization (WHO) Collaborating Center. Electronically signed by: Red Fabian MD 01/28/2025 07:00 AM [facility]
--- OUTSIDE RECORDS SUMMARY | 2025-01-25 09:37 | XMS_ITS | Clinical Summary ---
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 Hatfield, for uterine prolapse and cystocoele Medical History Medical History Date Comments Myalgia and myositis, unspecified 04/12/2007 DX:Myalgia and myositis, unspecified Obesity, unspecified 04/12/2007 DX:Obesity, unspecified Unspecified asthma(493.90) DX:Un specified asthma(493.90) Family History Medical History Relation Name Comments Hypertension Brother 1 cva Mental illness Mother cva, pacemake r, Mental illness Son 1 asthma Relation Name Status Comments Brother 1 Brother 2 Alive Brother 3 Alive Brother 4 Alive Father unknown [place], hep atitis Maternal Grandfather Maternal Grandmother Mother Alive Paternal Grandfather Paternal Grandmother Sister Alive Son 1 Son 2 Social History Tobacco Use Types Packs/Day Years Used Date Smoking Tobacco: Never Alcohol Use Standard Drinks/Week Comments No 0 (1 standard drink = 0.6 oz pur e alcohol) Comments Unknown Sex and Gender Information Value Date Recorded Sex Assigned at Not on file Legal Sex Female 11:13 PM EST Gender Identity Not on file Sexual Orientation Not on file Obstetrics History Plan of Treatment Health Maintenance Due Date Last Done Comments Breast Cancer Screening 1960 DTaP,Tdap,and Td Vaccines (1 - Tdap) 1979 Cervical Cancer Screening: P ap Smear 1981 Pneumococcal Vaccine: 50+ Ye ars (1 of 1 - PCV) 2010 Zoster Vaccines (1 of 2) 2010 COVID-19 Vaccine (1 - 2023-2 5 season) 2024 Influenza Vaccine (#1) 2024 RSV Immunization Patients 60 + Years Old (1 - 1-dose 75+ series) 2035 HIB Vaccines Aged Out No longer eligi ble based on patient's age to complete this topic HPV Vaccines Aged Out No longer eligi ble based on patient's age to complete this topic Hepatitis A Vaccines Aged Out No long er eligible based on patient's age to complete this topic Hepatitis B Vaccines Aged Out No long er eligible based on patient's age to complete this topic IPV Vaccines Aged Out No longer eligi ble based on patient's age to complete this topic MMR Vaccines Aged Out No longer eligi ble based on patient's age to complete this topic Meningococcal ACWY Vaccine Aged Out N o longer eligible based on patient's age to complete this topic Meningococcal B Vacine Aged Out No lo nger eligible based on patient's age to complete this topic Pneumococcal Vaccine: Pediat rics (0 to 5 Years) and At-Risk Patients (6 to 64 Years) Aged Out No longer eligible b ased on patient's age to complete this topic RSV Immunization Patients Un corbin 20 months Aged Out No longer eligible b ased on patient's age to complete this topic Varicella Vaccines Aged Out No longer eligible based on patient's age to complete this topic
== END 2025-01-25 09:04 | disposition home or self-care (01) ==
LOC: HO.MAMMO 09:03
PROVIDERS: PCP Internal Medicine; Visit Provider Internal Medicine
DX: Z12.31 Encounter for screening mammogram for malignant neoplasm of breast (principal); Z13.820 Encounter for screening for osteoporosis; Z78.0 Asymptomatic menopausal state
CPT/HCPCS: 77063; 77067; 77080

== ENCOUNTER → 2025-01-25 10:00 | Outpatient (BNV) | payer OTHER, SELFPAY | PROVIDERS: PCP Internal Medicine; Visit Provider Radiology Diagnostic Radiology | DX: E28.39 Other primary ovarian failure (principal); Z12.31 Encounter for screening mammogram for malignant neoplasm of breast | CPT/HCPCS: 77063; 77067; 77080 ==

== ENCOUNTER 2025-02-14 15:37 | Outpatient (REF) | payer OTHER, SELFPAY ==
--- NOTE | ~2025-02-14 | US_ITS ---
EXAMINATION: US RETROPERITONEUM HISTORY: R31.29 - Other microscopic hematuria TECHNIQUE: Real-time grayscale ultrasound imaging of the kidneys was performed and images were reviewed. COMPARISON: Correlation is made with an abdominal ultrasound dated 02/23/2023. FINDINGS: Right kidney: The right kidney measures 8.6 x 4.1 x 4.6 cm. Renal parenchymal echotexture and thickness are normal. The kidney demonstrates a lobulated contour. There are no masses. There is no hydronephrosis or renal calculi. Left Kidney: The left kidney measures 9.7 x 5.3 x 4.5 cm. Renal parenchymal echotexture and thickness are normal. The kidney demonstrates a lobulated contour. There are no masses. There is no hydronephrosis or renal calculi. The urinary bladder is unremarkable. Bilateral ureteral jets are identified. Before voiding, the urinary bladder measured 10.3 x 6.6 x 7.8 cm, for an estimated volume of 277 mL. After voiding, the urinary bladder measured 6.3 x 2.7 x 3.9 cm, for an estimated volume of 35 mL. US/US retroperitoneal comp IMPRESSION: Lobulated renal contours. Otherwise unremarkable renal ultrasound. Post void bladder residual of 35 mL. Electronically signed by: Red Fabian MD 02/15/2025 07:51 AM EDT
--- OUTSIDE RECORDS SUMMARY | 2025-02-14 17:51 | XMS_ITS | Clinical Summary ---
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 Hatfield, for uterine prolapse and [...] 3 Alive Brother 4 Alive Father unknown [place], hep atitis Maternal Grandfather Maternal Grandmother Mother [...]
== END 2025-02-14 15:38 | disposition home or self-care (01) ==
LOC: HO.US 15:37
PROVIDERS: PCP Internal Medicine; Visit Provider Urology
DX: R31.29 Other microscopic hematuria (principal)
CPT/HCPCS: 76770

== ENCOUNTER → 2025-02-14 15:39 | Outpatient (BNV) | payer OTHER, SELFPAY | PROVIDERS: PCP Internal Medicine; Visit Provider Radiology Diagnostic Radiology | DX: R31.29 Other microscopic hematuria (principal) | CPT/HCPCS: 76770 ==

== ENCOUNTER 2025-03-11 09:19 | Outpatient (AMB) | payer OTHER, SELFPAY ==
--- NOTE | 2025-03-11 09:22 | A.OFFVIS_ITS ---
Intake Visit Reasons: Pelvic Exam/US 4M f/u Intake Note: Patient is present for 4 month follow up/Pelvic Exam/US Urology Med: Estradiol Antibiotic Allergy: Cipro, Bactrim, Nitrofurantion, Penicillins Blood Thinner: None PVR:0ml Accompanied by: Self / Same As Patient Allergies ciprofloxacin Allergy (Severe, Verified 03/11/25 09:26) Joint Pain naproxen [NAPROXEN] Allergy (Severe, Verified 03/11/25 09:26) STOMACH BLEED, bleeding, bleeding nitrofurantoin Allergy (Severe, Verified 03/11/25 09:26) Rash meloxicam [MELOXICAM] Allergy (Intermediate, Verified 03/11/25 09:26) RASH, hives prednisone [PREDNISONE] Allergy (Intermediate, Verified 03/11/25 09:26) SWELLING pregabalin [From LYRICA] Allergy (Intermediate, Verified 03/11/25 09:26) SHORTNESS OF BREATH Sulfa (Sulfonamide Antibiotics) Allergy (Intermediate, Verified 03/11/25 09:26) hives trimethoprim [From BACTRIM] Allergy (Intermediate, Verified 03/11/25 09:26) RASH oxycodone [From PERCOCET] Allergy (Mild, Verified 03/11/25 09:26) RASH Penicillins [PENICILLINS] Allergy (Mild, Verified 03/11/25 09:26) RASH Tramadol Allergy (Mild, Uncoded 12/13/24 10:34) Itching Medication List - Last Reconciled 03/11/25 by Serina Crain MD acetaminophen (Tylenol Extra Strength) 500 mg PO Q6H PRN 30 days amitriptyline 25 mg PO BEDTIME ilsguploug-kmozeflauwvaz-xnnr 50-325-40 mg 1 tab PO Q6H PRN 30 days cyclobenzaprine 10 mg PO TID PRN epinephrine 0.3 mg (0.3 mL) IM Q10M PRN estradiol 0.01%(0.1mg/gram) (Estrace) pea sized amount per urethra QHS; 30 days Humira Pen (adalimumab) 40 mg (0.8 mL) subcut QWEEK NS [Regular back brace wear as needed] Shower Chair Shower chair size small HPI Comments Details: 03/11/25-- 11/09/24--9 month FU--Paz is a 63-year-old female, history of rheumatoid arthritis, who is followed for persistent microscopic hematuria, recurrent UTIs and irritative voiding symptoms. She has been prescribed Estrace cream for recurrent UTIs and vaginal atrophy. She has occasional left sided pain, and complains of vaginal bulge. She declines exam today. FU for pelvic exam, renal US prior. She prefers to fu after the holidays. Review of chart: 02/09/2024-- Paz is a 63-year-old female, history of rheumatoid arthritis, who is followed for persistent microscopic hematuria, recurrent UTIs and irritative voiding symptoms. She has been prescribed Estrace cream for recurrent UTIs and vaginal atrophy. She states she is using the cream as directed small amount on her fingertip every other night at bedtime. She states that her urinary stream has been good denies dysuria at this time. She states that her has stage 5 kidney disease and she is concerned about her kidneys as she sometimes gets pain on the left flank to upper abdomen. I have reviewed with her that her BUN and creatinine is within normal limits she had labs on 01/26/2024 (BUN-14, creatinine 0,92). I have also reviewed recent imaging CT scan abdomen and pelvis done in July 2023 kidneys were normal without renal calculi or hydronephrosis. Evaluation-urinalysis leukocytes negative, blood 1+. 03/04/23--Paz is a 62-year-old female who presents to the office for recurrent UTI follow-up. The patient is seen for renal cyst in the past. On previous images the renal cyst meets the criteria for simple cyst [place] 1 and no follow-up is needed. She has recurrent UTI and is here for follow-up to check the urine. The patient was prescribed with Estrace cream to be used vaginally. The patient is using the cream currently. On discussion with the patient today, she complains having badder pain that started about 2 weeks ago. Evaluation today: Blood: 200 Mazin/uL, Leukocytes: 500 Kushal/uL. Microscopic examination:scant bacteria present. Plan: Cystoscopy procedure was discussed with the patient. Urine for Microgen was ordered. Continue with vaginal estrogen cream. Follow-up for office cystoscopy. 05/12/23-- presents to the office for cystoscopy procedure. The patient is here for follow-up for recurrent UTI and renal cyst. The patient also has persistent microscopic hematuria. The patient was treated with doxycycline by her PCP on 04/20/23 Renal US results reviewed?11/12/22-- 4 mm kidney cyst Abdominal US results reviewed?02/23/23-- within normal limits. Evaluation today--Blood: 80 Mazin/uL, leukocytes: 15 Kushal/uL. Cystoscopy findings-- No suspicious bladder lesions. 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 GERD (gastroesophageal reflux disease) Migraines Surgical History Hx of hysterectomy History of total abdominal hysterectomy Family History Father Hypertension CVD (cardiovascular disease) Mother Hypertension Diabetes Cancer Paternal Grandmother Cancer Brother Colon cancer Social History Housing: Apartment Alcohol intake: current Alcohol intake frequency: does not drink Alcohol type: wine Patient Tobacco Use Status: Never used Tobacco e-Cigarette/Vaping Use: Never Used Second Hand Smoke Exposure: No service: No Current occupational status: unemployed Cognitive needs: No Hearing needs: No Vision needs: Yes (glasses ) Review of Systems Const All systems reviewed & are unremarkable except as noted in HPI and below Reports no additional complaints Eyes Reports no additional complaints ENT Reports no additional complaints Card Reports no additional complaints Resp Reports no additional complaints GI Reports no additional complaints Reports as per HPI Musc Reports no additional complaints Skin/Breast Reports system reviewed and no additional complaints, except as documented Neuro Reports no additional complaints Psych Reports no additional complaints Endo Reports no additional complaints Jose/Lymph Reports no additional complaints Aller/Immun Reports no additional complaints Office Procedures Post Void Residual Post Residual Void Post Void Residual (PVR): 0 [id number] Void Residual by ultrasound Results AMB Urinalysis, Automated UA Leukoctes 500 Kushal/uL Last Edit by Cata Dorado on 03/11/25 14:01 UA Nitrite Negative Last Edit by Cata Dordao on 03/11/25 14:01 UA Urobilinogen 0.2 mg/dL Last Edit by Cata Dorado on 03/11/25 14:01 UA Protein 15 mg/dL Last Edit by Cata Dorado on 03/11/25 14:01 UA pH 5.0 Last Edit by Cata Dorado on 03/11/25 14:01 UA Blood 200 Mazin/uL Last Edit by Cata Dorado on 03/11/25 14:01 UA Specific [place] 1.025 Last Edit by Cata Dorado on 03/11/25 14:01 UA Ketone Negative Last Edit by Crystal Dorado on 03/11/25 14:01 UA Bilirubin 0 mg/dL Last Edit by Cata Dorado on 03/11/25 14:01 UA Glucose 0 mg/dL Last Edit by Cata Dorado on 03/11/25 14:01 Results Reviewed Results Reviewed: Laboratory Last Values Urine pH (Auto) 5.0 03/11/25 13:05 Specific [place] (Auto) 1.025 03/11/25 13:05 Urine Protein (Auto) 15 mg/dL 03/11/25 13:05 Glucose (UA)(Auto) 0 mg/dL 03/11/25 13:05 Urine Ketones (Auto) Negative 03/11/25 13:05 Urine Blood (Auto) 200 Mazin/uL 03/11/25 13:05 Urine Nitrite (Auto) Negative 03/11/25 13:05 Urine Bilirubin (Auto) 0 mg/dL 03/11/25 13:05 Urine Urobilinogen (Auto) 0.2 mg/dL 03/11/25 13:05 Leukocyte Esterase (Auto) 500 Kushal/uL 03/11/25 13:05 Date of Service: 02/14/25 Procedure(s): US retroperitoneal comp Accession Number(s): [id number] cc: Serina Crain MD; Paz Robert MD~ EXAMINATION: US RETROPERITONEUM HISTORY: R31.29 - Other microscopic hematuria TECHNIQUE: Real-time grayscale ultrasound imaging of the kidneys was performed and images were reviewed. COMPARISON: Correlation is made with an abdominal ultrasound dated 02/23/2023. FINDINGS: Right kidney: The right kidney measures 8.6 x 4.1 x 4.6 cm. Renal parenchymal echotexture and thickness are normal. The kidney demonstrates a lobulated contour. There are no masses. There is no hydronephrosis or renal calculi. Left Kidney: The left kidney measures 9.7 x 5.3 x 4.5 cm. Renal parenchymal echotexture and thickness are normal. The kidney demonstrates a lobulated contour. There are no masses. There is no hydronephrosis or renal calculi. The urinary bladder is unremarkable. Bilateral ureteral jets are identified. Before voiding, the urinary bladder measured 10.3 x 6.6 x 7.8 cm, for an estimated volume of 277 mL. After voiding, the urinary bladder measured 6.3 x 2.7 x 3.9 cm, for an estimated volume of 35 mL. IMPRESSION: Lobulated renal contours. Otherwise unremarkable renal ultrasound. Post void bladder residual of 35 mL. Date of Service: 08/18/23 EXAMINATION: CT ABDOMEN AND PELVIS WITHOUT CONTRAST CLINICAL INFORMATION: Left lower quadrant tenderness. COMPARISON: 04/05/2022 TECHNIQUE: Multidetector volumetric imaging was performed from the superior aspect of the liver through the pubic symphysis. Sagittal and coronal reformatted images were obtained on the technologist's workstation. This CT examination was performed using dose optimization techniques as appropriate, variously including the following: *Automated exposure control *Adjustment of mA and/or kV according to patient size (this includes techniques or standardized protocols for targeted exams where dose is matched to indication/reason for exam; i.e. extremities or head) *Use of iterative reconstruction technique DLP: 528 mGy-cm FINDINGS: LUNG BASES: The visualized lung bases are unremarkable. LIVER, GALLBLADDER, AND BILIARY TREE: The noncontrast liver is normal in size and contour. No biliary ductal dilatation is present. The gallbladder is unremarkable with no evidence of radiopaque gallstones, gallbladder wall thickening, or obvious pericholecystic inflammatory changes. PANCREAS: Unremarkable. SPLEEN: Unremarkable. ADRENAL GLANDS: Unremarkable. KIDNEYS AND URETERS: The kidneys are symmetric in size. No renal calculus. No hydronephrosis or perinephric stranding. BLADDER: Possible cystocele. GASTROINTESTINAL TRACT: Small and large bowel loops are of normal caliber. Moderate fecal retention in the colon. No small bowel obstruction. Appendix is within normal limits. ABDOMINAL WALL: No significant hernia is appreciated. LYMPH NODES: No bulky abdominal or pelvic lymphadenopathy. VASCULAR: Normal caliber abdominal aorta. PELVIC VISCERA: Uterus is surgically absent. OSSEOUS STRUCTURES: No destructive bone lesions. IMPRESSION: No acute abnormality in the abdomen or pelvis. Assessment & Plan Assessment & Plan (1) Microscopic hematuria: Code(s): R31.29 - Other microscopic hematuria Category: Medical (2) Vaginal atrophy: Code(s): N95.2 - Postmenopausal atrophic vaginitis Category: Medical (3) Rheumatoid arthritis: Comment: -ve RF + CCP Methotrexate: 10/2018-07/2019-p.o. and subcutaneous- GI upset Humira: 02/15/2020- present, intermittently compliant Code(s): M06.9 - Rheumatoid arthritis, unspecified Category: Medical Qualifiers: Rheumatoid arthritis location: multiple sites Rheumatoid factor presence: unspecified presence Qualified Code(s): M06.9 - Rheumatoid arthritis, unspecified Orders: Orders AMB Post Void Residual by ultrasound Today N39.0 - Urinary tract infection, site not specified AMB Urinalysis Automated Today Z13.9 - Encounter for screening, unspecified Referrals Nephrology Referral R31.29 - Other microscopic hematuria, R80.9 - Proteinuria, unspecified Medications: Refilled estradiol 0.01%(0.1mg/gram) (Estrace) pea sized amount per urethra QHS; 42.5 grams 3RF complicated uti 30 days N39.0 - Urinary tract infection, site not specified Coding Diagnoses Microscopic hematuria R31.29 Vaginal atrophy N95.2 Rheumatoid arthritis involving multiple sites, unspecified whether rheumatoid factor present M06.9 Rheumatoid arthritis location: multiple sites Rheumatoid factor presence: unspecified presence CPT Codes Post Residual Void - PVR CPT Code: 25871-Boar Void Residual by ultrasound ([id number])
--- OUTSIDE RECORDS SUMMARY | 2025-03-11 10:20 | XMS_ITS | Clinical Summary ---
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 Hatfield, for uterine prolapse and cystocoele [...] - 2023-2 5 season) 2024 Influenza Vaccine (Season Ended) 2025 RSV Immunization Adult Patie nts (1 - 1-dose 75+ series) 2035 HIB [...] age to complete this topic Meningococcal B Vaccine Aged Out No l onger eligible based on patient's age to complete [...]
== END 2025-03-11 10:13 | disposition home or self-care (01) ==
LOC: HO.HUSH 09:20
PROVIDERS: PCP Internal Medicine; Visit Provider Urology
DX: Z13.9 Encounter for screening, unspecified (principal)

== ENCOUNTER → 2025-03-11 09:19 | Outpatient (BNVA) | payer OTHER, SELFPAY | PROVIDERS: PCP Internal Medicine; Visit Provider Urology | DX: R31.29 Other microscopic hematuria (principal); N95.2 Postmenopausal atrophic vaginitis; M06.9 Rheumatoid arthritis, unspecified | CPT/HCPCS: 51798; 81003; 99212 ==

== ENCOUNTER 2025-03-28 11:40 | Outpatient (AMB) | payer OTHER, SELFPAY ==
--- NOTE | 2025-03-28 12:05 | HO.NEPHOV ---
Vital Signs 03/28/25 12:08 Height 5 ft 2 in Weight 165 lb 2 oz BMI 30.2 BP 110/68 Blood Pressure Location Lt brachial Position Sitting Pulse 60 Pulse Source Pulse Oximeter Pulse Oximetry (%) 98 Oxygen Delivery Method Room Air Intake Visit Reasons: INP: Proteinuria/ microscopic hematuria Nutritionists Required: No Accompanied by: Self / Same As Patient Allergies ciprofloxacin Allergy (Severe, Verified 03/28/25 12:07) Joint Pain naproxen [NAPROXEN] Allergy (Severe, Verified 03/28/25 12:07) STOMACH BLEED, bleeding, bleeding nitrofurantoin Allergy (Severe, Verified 03/28/25 12:07) Rash meloxicam [MELOXICAM] Allergy (Intermediate, Verified 03/28/25 12:07) RASH, hives prednisone [PREDNISONE] Allergy (Intermediate, Verified 03/28/25 12:07) SWELLING pregabalin [From LYRICA] Allergy (Intermediate, Verified 03/28/25 12:07) SHORTNESS OF BREATH Sulfa (Sulfonamide Antibiotics) Allergy (Intermediate, Verified 03/28/25 12:07) hives trimethoprim [From BACTRIM] Allergy (Intermediate, Verified 03/28/25 12:07) RASH oxycodone [From PERCOCET] Allergy (Mild, Verified 03/28/25 12:07) RASH Penicillins [PENICILLINS] Allergy (Mild, Verified 03/28/25 12:07) RASH Tramadol Allergy (Mild, Uncoded 12/13/24 10:34) Itching HPI Comments Details: I had the pleasure of seeing Paz for an incidental finding of mild proteinuria. She has history of left renal cyst. She has no microscopic hematuria, hearing deficits, renal dysfunction, pedal edema, frothy or foamy urine. She does not take any excessive nonsteroidal anti-inflammatories. She has no joint swelling, photosensitivity, skin rashes, epistaxis, diabetes, CVA, CAD, CHF, carotid stenosis, renal calculi, paraproteinemia, PAD. Her renal functions are normal. Her blood pressure has been at goal. 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 GERD (gastroesophageal reflux disease) Migraines Surgical History Hx of hysterectomy History of total abdominal hysterectomy Family History Father Hypertension CVD (cardiovascular disease) Mother Hypertension Diabetes Cancer Paternal Grandmother Cancer Brother Colon cancer Social History Housing: Apartment Alcohol intake: current Alcohol intake frequency: does not drink Alcohol type: wine Patient Tobacco Use Status: Never used Tobacco e-Cigarette/Vaping Use: Never Used Second Hand Smoke Exposure: No service: No Current occupational status: unemployed Cognitive needs: No Hearing needs: No Vision needs: Yes (glasses ) Review of Systems Const All systems reviewed & are unremarkable except as noted in HPI and below Physical Exam Vital Signs: Last Vital Signs Pulse 60 03/28/25 12:08 BP 110/68 03/28/25 12:08 Pulse Ox 98 03/28/25 12:08 Oxygen Delivery Method Room Air 03/28/25 12:08 BMI result Body Mass Index 30.2 Const General: comfortable and no acute distress Orientation/consciousness: patient oriented x3 HEENT Head: Yes normocephalic Mouth: Normal oral and palatal mucosa present Eyes EOM: EOMs intact bilaterally Neck Neck: Yes supple Resp Auscultation: clear to auscultation bilaterally Cardio Jugular venous distension: no JVD Rate: regular rate GI Palpation (GI): Soft to palpation Auscultation: normal bowel sounds General: Yes no CVA tenderness Back/Spine/Pelvis Back: no CVA tenderness Skin General skin exam: no rashes or lesions noted Neuro General: patient oriented x3 and moves all extremities Extrem General: Yes no pedal edema Results Reviewed Nephrology Results: Hgb 13.5 g/dl (12.0-16.0) 04/01/25 WBC 7.5 X10*3/uL (4.8-10.8) 04/01/25 Plt Count 308 X10*3/uL (160-400) 04/01/25 Sodium 140 mmol/L (135-145) 04/01/25 Potassium 4.2 mmol/L (3.3-5.1) 04/01/25 Chloride 103 mmol/L (96-108) 04/01/25 Carbon Dioxide 30 mmol/L (22-29) H 04/01/25 BUN 20 mg/dL (9-16) H 04/01/25 Creatinine 0.82 mg/dL (0.5-1.4) 04/01/25 Calcium 9.6 mg/dL (8.4-10.2) 04/01/25 Assessment & Plan Assessment & Plan (1) Proteinuria: Code(s): R80.9 - Proteinuria, unspecified Category: Medical Qualifiers: Proteinuria type: other Qualified Code(s): R80.8 - Other proteinuria (2) Simple renal cyst: Code(s): N28.1 - Cyst of kidney, acquired Category: Medical Plan Paz had an incidental finding of mild proteinuria. She has no history of hematuria. Her renal functions are normal. Her blood pressure has been at goal. She is not a diabetic. She also has history of left renal cyst. She has no flank pain, night sweats, weight loss. She has no history of malignancy. I ordered 24 hour urine for protein. If she has significant proteinuria I will initiate her on ARB and investigate further in detail. She was asked to maintain good hydration and minimize nonsteroidal anti-inflammatories in excess. I did not make any medication changes today. All these have been explained in detail. Answered all questions and follow-up was given. Orders: Orders Protein, 24 Hr Urine Group Today R80.9 - Proteinuria, unspecified Coding Level of Care Code New Pt Level 4 (10246) Diagnoses Other proteinuria R80.8 Proteinuria type: other Simple renal cyst N28.1
[2025-03-28 12:08] VITALS: BP 110/68; PULSE 60; O2SAT 98; BMI 30.2
== END 2025-03-28 12:42 | disposition home or self-care (01) ==
LOC: HO.HKAS 11:40
PROVIDERS: PCP Internal Medicine; Referring Provider Urology; Visit Provider Internal Medicine Nephrology
DX: R80.8 Other proteinuria (principal); N28.1 Cyst of kidney, acquired
CPT/HCPCS: 99204

== ENCOUNTER → 2025-03-28 11:40 | Outpatient (BNVA) | payer OTHER, SELFPAY | PROVIDERS: PCP Internal Medicine; Referring Provider Urology; Visit Provider Internal Medicine Nephrology | DX: R80.8 Other proteinuria (principal); N28.1 Cyst of kidney, acquired | CPT/HCPCS: 99202 ==

== ENCOUNTER 2025-04-01 08:40 | Outpatient (REF) | payer OTHER, SELFPAY ==
--- OUTSIDE RECORDS SUMMARY | 2025-04-01 09:01 | XMS_ITS | Clinical Summary ---
Author Organization [facility] it Address [address] [place] [address] Care Team Providers Care Director Funds Development Name Role Phone Unavailable Primary Care Provider Unavailabl e Surgical History Surgery Date Site/Laterality Comments OTHER SURGICAL HISTORY 1982 PROCEDURE: [place] BIOPSY VULVA/PERINEUM 1 LESION SPX TONSILLECTOMY PROCEDURE: HISTORICAL TONSILLECTOMY HYSTERECTOMY 1999 PROCEDURE: HISTORICAL HYSTERECTOMY; COMMENT: [place]AVH [place] [facility], for uterine prolapse and cystocoele [...] 3 Alive Brother 4 Alive Father unknown [place], hep atitis Maternal Grandfather Maternal Grandmother Mother [...]
[2025-04-01 09:12] LABS: MANUAL DIFF FLAG NO
[2025-04-01 09:21] LABS: Basophils Percent Auto 0.4 % (0-2); Eosinophils Absolute Auto 0.1 X10*3/uL (0.0-0.4); Eosinophils Percent Auto 1.6 % (0-4); Hematocrit 41.5 % (37.0-47.0); Hemoglobin 13.5 g/dl (12.0-16.0); Imm Gran Abs Auto 0.04 X10*3/uL (0.00-0.03); Imm Gran Pct Auto 0.5 % (0.0-0.4); Lymphocytes Absolute Auto 1.7 X10*3/uL (1.2-4.9); Lymphocytes Percent Auto 23.1 % (20-40); Mean Corpuscular HGB Conc 32.5 g/dl (31.0-35.0); Mean Corpuscular Hemoglobin 29.5 pg (27.0-33.0); Mean Corpuscular Volume 90.8 fL (80.0-98.0); Monocytes Absolute Auto 0.6 X10*3/uL (0.1-1.2); Monocytes Percent Auto 8.5 % (2-11); Neutrophils Percent Auto 65.9 % (45-73); Platelet Count 308 X10*3/uL (160-400); Red Blood Count 4.57 X10*6/uL (4.20-5.50); Red Cell Distribution Width 13.5 % (11.0-16.0); White Blood Count 7.5 X10*3/uL (4.8-10.8)
[2025-04-01 09:51] LABS: Alanine Aminotransferase 13 U/L (0-31); Albumin Level 4.1 g/dL (3.5-5.0); Alkaline Phosphatase 97 U/L (39-117); Anion Gap 11 (12-20); Aspartate Amino Transferase 21 U/L (5-31); Bilirubin Total 0.4 mg/dL (0.0-1.0); Blood Urea Nitrogen 20 mg/dL (9-16); C Reactive Protein 1.09 mg/dL (< or = 0.50); Calcium 9.6 mg/dL (8.4-10.2); Carbon Dioxide 30 mmol/L (22-29); Chloride 103 mmol/L (96-108); Estimated Glomerular Filt Rate > 60; Glucose Random 93 mg/dL (60-115); Potassium 4.2 mmol/L (3.3-5.1); Sodium 140 mmol/L (135-145); Total Protein 7.7 g/dL (6.5-8.0)
[2025-04-01 10:02] LABS: Erythrocyte Sedimentation Rate 34 MM/HR (0-20)
[2025-04-01 11:11] LABS: Creatinine, mg/dL 53.84; Protein mg/dL < 7 mg/dL
[2025-04-01 14:12] LABS: Creatinine, 24Hr Urine 0.8 G/Day (1.0-2.0); Protein 24 Hr Urine < 105 mg/Day (<150); Total Volume 24 Hour Urine 1500 mL
== END 2025-04-01 08:41 | disposition home or self-care (01) ==
LOC: HO.LAB 08:40
PROVIDERS: Internal Medicine Nephrology; PCP Internal Medicine; Visit Provider Student in an Organized Health Care Education/Training Program
DX: M06.9 Rheumatoid arthritis, unspecified (principal); R80.9 Proteinuria, unspecified
CPT/HCPCS: 36415; 80053; 84156; 85025; 85652; 86140

== ENCOUNTER 2025-04-10 10:28 | Outpatient (AMB) | payer OTHER, SELFPAY ==
--- NOTE | 2025-04-10 10:53 | A.OFFVIS_ITS ---
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: Electrical Design Engineer Present ([place]) Allergies ciprofloxacin Allergy (Severe, Verified 04/10/25 10:54) Joint Pain naproxen [NAPROXEN] Allergy (Severe, Verified 04/10/25 10:54) STOMACH BLEED, bleeding, bleeding nitrofurantoin Allergy (Severe, Verified 04/10/25 10:54) Rash meloxicam [MELOXICAM] Allergy (Intermediate, Verified 04/10/25 10:54) RASH, hives prednisone [PREDNISONE] Allergy (Intermediate, Verified 04/10/25 10:54) SWELLING pregabalin [From LYRICA] Allergy (Intermediate, Verified 04/10/25 10:54) SHORTNESS OF BREATH Sulfa (Sulfonamide Antibiotics) Allergy (Intermediate, Verified 04/10/25 10:54) hives trimethoprim [From BACTRIM] Allergy (Intermediate, Verified 04/10/25 10:54) RASH oxycodone [From PERCOCET] Allergy (Mild, Verified 04/10/25 10:54) RASH Penicillins [PENICILLINS] Allergy (Mild, Verified 04/10/25 10:54) RASH Tramadol Allergy (Mild, Uncoded 12/13/24 10:34) Itching HPI Comments Details: She is a 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 She is doing well with no county sheriff concerns. Currently not sexually active w/ due to medical concerns. Attempting to eat a healthy diet, stays active with exercise. History of hysterectomy due to chronic pelvic pain. Last mammogram; 2024. Colonoscopy is UTD. Denies any family history of breast or ovarian. Family history of colon cancer. 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 GERD (gastroesophageal reflux disease) Migraines Surgical History Hx of hysterectomy History of total abdominal hysterectomy Family History Father Hypertension CVD (cardiovascular disease) Mother Hypertension Diabetes Cancer Paternal Grandmother Cancer Brother Colon cancer Social History Housing: Apartment Alcohol intake: current Alcohol intake frequency: does not drink Alcohol type: wine Patient Tobacco Use Status: Never used Tobacco e-Cigarette/Vaping Use: Never Used Second Hand Smoke Exposure: No service: No Current occupational status: unemployed Cognitive needs: No Hearing needs: No Vision needs: Yes (glasses ) Female Reproductive History Menstrual Menopause type: surgical Total pregnancies: 5 Full term: 2 Number of Living Children: 2 Ab spontaneous: 3 Date of Mammogram: 01/25/25 (Birad 1) Date of last Bone Density Screenin01/25/25 Review of Systems Const All systems reviewed & are unremarkable except as noted in HPI and below Reports as per HPI Eyes Reports no additional complaints ENT Reports no additional complaints Card Reports no additional complaints Resp Reports no additional complaints GI Reports as per HPI and Reports no additional complaints Reports as per HPI Musc Reports no additional complaints Skin/Breast Reports as per HPI Neuro Reports no additional complaints Psych Reports no additional complaints Endo Reports no additional complaints Jose/Lymph Reports no additional complaints Aller/Immun Reports no additional complaints Physical Exam Vital Signs: Last Vital Signs BP 100/58 L 04/10/25 10:55 BMI result Body Mass Index 30.2 Const General: cooperative, healthy appearing, no acute distress, well developed and alert Orientation/consciousness: patient oriented x3 HEENT Head: Yes normal to inspection Eyes General: appearance normal, both eyes and all related structures Neck Neck: Yes normal visual inspection Thyroid: Thyroid normal Chest Chest palpation & inspection: normal inspection of the chest and other (no puckering, dimpling, peau de orange, retraction, discharge, masses) Breast/axilla inspection: normal inspection of the breasts Breast/axilla palpation: normal palpation of the breasts Resp Effort & Inspection: normal respiratory effort GI Inspection: Yes normal to inspection Palpation (GI): Soft to palpation Rectal Exam - Female: deferred General: Yes bladder normal to palpation External Female Exam: normal external appearance and normal appearance of the urethra Speculum Exam - Vagina: normal appearance of the vagina, normal palpation, normal vaginal discharge and vagina atrophic Speculum Exam - Cervix: Cervix absent (Vaginal cuff no lesions or nodules) Bimanual exam- vagina & uterus: normal bimanual exam, normal palpation, bladder normal to palpation and uterus absent Bimanual Exam- Adnexa, other: no masses Skin General skin exam: no rashes or lesions noted Rashes: no rashes Neuro General: patient oriented x3 Cognition (Neuro): normal cognition Extrem General: Yes normal to inspection Psych Attitude: cooperative Thought process: Normal thought process present Assessment & Plan Assessment & Plan (1) Well woman exam with routine gynecological exam: Code(s): Z01.419 - Encounter for gynecological examination (general) (routine) without abnormal findings Category: Medical Plan Discussed: Current recommendations for pap smears per ASCCP guidelines. Breast awareness, periodic self breast exams and yearly mammogram. Maintain a healthy lifestyle, well balanced diet including Calcium 1,200 mg and Vitamin D 600 IU daily, and routine exercise. Patient verbalizes understanding and agrees to the plan of care. She was given opportunity to ask questions and all questions were answered to the best of my ability. RTO in 1-2 year for annual county sheriff exam. This note is constructed using voice recognition software. While every effort has been made to ensure accuracy, furnace hand errors may have been included. Coding Level of Care Code Est Pt Prev Care 40-64y(65882) Diagnoses Well woman exam with routine gynecological exam Z01.419
[2025-04-10 10:55] VITALS: BP 100/58; BMI 30.2
--- OUTSIDE RECORDS SUMMARY | 2025-04-10 11:29 | XMS_ITS | Clinical Summary ---
[facility] Organization [facility] Address [address] [place] [address] Care Team Providers Care Medical Administrative Technician Name Role Phone Unavailable Primary Care Provider Unavailabl e Surgical History Surgery Date Site/Laterality Comments OTHER SURGICAL HISTORY 1982 PROCEDURE: [place] BIOPSY VULVA/PERINEUM 1 LESION SPX TONSILLECTOMY PROCEDURE: HISTORICAL TONSILLECTOMY HYSTERECTOMY 1999 PROCEDURE: HISTORICAL HYSTERECTOMY; COMMENT: LAVH and anterior [place] [facility] [place], for uterine prolapse and cystocoele [...] 3 Alive Brother 4 Alive Father unknown [place], hep atitis Maternal Grandfather Maternal Grandmother Mother [...]
== END 2025-04-10 11:29 | disposition home or self-care (01) ==
LOC: HO.HWS 10:29
PROVIDERS: PCP Internal Medicine; Visit Provider Advanced Practice Midwife
DX: Z01.419 Encounter for gynecological examination (general) (routine) without abnormal findings (principal)
CPT/HCPCS: 99396; 99459

== ENCOUNTER → 2025-04-10 10:28 | Outpatient (BNVA) | payer OTHER, SELFPAY | PROVIDERS: PCP Internal Medicine; Visit Provider Advanced Practice Midwife | DX: Z01.419 Encounter for gynecological examination (general) (routine) without abnormal findings (principal) | CPT/HCPCS: 99396; 99459 ==

== ENCOUNTER 2025-04-25 09:42 | Outpatient (AMB) | payer OTHER, SELFPAY ==
--- NOTE | 2025-04-25 09:47 | A.OFFVIS_ITS ---
Vital Signs 04/25/25 09:56 Height 5 ft 2 in Weight 165 lb 9.074 oz BMI 30.3 BP 115/70 Blood Pressure Location Rt brachial Position Sitting Respiration 16 Pulse 70 Pulse Source Pulse Oximeter Pulse Oximetry (%) 95 Oxygen Delivery Method Room Air Intake Visit Reasons: RA Intake Note: Patient presents for RA follow up. Allergies ciprofloxacin Allergy (Severe, Verified 04/25/25 09:55) Joint Pain naproxen [NAPROXEN] Allergy (Severe, Verified 04/25/25 09:55) STOMACH BLEED, bleeding, bleeding nitrofurantoin Allergy (Severe, Verified 04/25/25 09:55) Rash meloxicam [MELOXICAM] Allergy (Intermediate, Verified 04/25/25 09:55) RASH, hives prednisone [PREDNISONE] Allergy (Intermediate, Verified 04/25/25 09:55) SWELLING pregabalin [From LYRICA] Allergy (Intermediate, Verified 04/25/25 09:55) SHORTNESS OF BREATH Sulfa (Sulfonamide Antibiotics) Allergy (Intermediate, Verified 04/25/25 09:55) hives trimethoprim [From BACTRIM] Allergy (Intermediate, Verified 04/25/25 09:55) RASH oxycodone [From PERCOCET] Allergy (Mild, Verified 04/25/25 09:55) RASH Penicillins [PENICILLINS] Allergy (Mild, Verified 04/25/25 09:55) RASH Tramadol Allergy (Mild, Uncoded 12/13/24 10:34) Itching Medication List - Last Reconciled 04/25/25 by Carmencita Forbes MD acetaminophen (Tylenol Extra Strength) 500 mg PO Q6H PRN 30 days amitriptyline 25 mg PO BEDTIME [id number] 50-325-40 mg 1 tab PO Q6H PRN 30 days cyclobenzaprine 10 mg PO TID PRN epinephrine 0.3 mg (0.3 mL) IM Q10M PRN estradiol 0.01%(0.1mg/gram) (Estrace) pea sized amount per urethra QHS; 30 days Humira Pen (adalimumab) 40 mg (0.8 mL) subcut QWEEK NS [Regular back brace wear as needed] Shower Chair Shower chair size small HPI Comments Details: Patient is a 64-year-old female with history of ?latent TB, history of patent foramen ovale with atrial septal aneurysm, hyperlipidemia, GERD, polyarticular osteoarthritis, fibromyalgia and seropositive rheumatoid arthritis here today for follow up Interval History: Patient last seen 12/13/[address] Billings. At that time she was on Humira injections every other week noting improvement to her joints overall. Continues to do well Planning to go to [place] soon for atleast 1 month Still has muscle aches especially after doing alot of housework the day before Rheumatologic History: -ve RF + CCP Methotrexate: 10/2018-07/2019-p.o. 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 GERD (gastroesophageal reflux disease) Migraines Surgical History Hx of hysterectomy History of total abdominal hysterectomy Family History Father Hypertension CVD (cardiovascular disease) Mother Hypertension Diabetes Cancer Paternal Grandmother Cancer Brother Colon cancer Social History Housing: Apartment Alcohol intake: current Alcohol intake frequency: does not drink Alcohol type: wine Patient Tobacco Use Status: Never used Tobacco e-Cigarette/Vaping Use: Never Used Second Hand Smoke Exposure: No service: No Current occupational status: unemployed Cognitive needs: No Hearing needs: No Vision needs: Yes (glasses ) Review of Systems Const Details: Review of Systems Constitutional: Denies fever, chills, weight loss ENT: Denies vision changes, eye pain or eye redness, dental caries, dry mouth GI: Denies nausea, vomiting, diarrhea, abdominal pain, change in BM Pulm: Denies SOB, VANCE, hemoptysis, wheezing Cards: Denies chest pain, palpitations Skin: Denies Raynaud's, rash, nail changes, photosensitivity, MANAGER OF SECURITY: Denies headaches, weakness, paresthesias, recurrent falls MSK: as per HPI All other systems reviewed and are unremarkable except noted above Physical Exam Vital Signs: Last Vital Signs Pulse 70 04/25/25 09:56 Resp 16 04/25/25 09:56 BP 115/70 04/25/25 09:56 Pulse Ox 95 04/25/25 09:56 Oxygen Delivery Method Room Air 04/25/25 09:56 BMI result Body Mass Index 30.3 Vital signs reviewed Physical Examination CONSTITUITIONAL Patient alert and cooperative. Well appearing and in no apparent painful distress HEENT Conjunctiva and sclera clear. ?Pupils equal round and reactive to light. ?No lymphadenopathy. ? CHEST/RESPIRATORY SYSTEM Normal respiratory effort and able to speak in complete sentences. ?Clear to auscultation bilaterally. ?No crackles, rales, rhonchi, wheezes heard. CARDIAC SYSTEM Regular rate and rhythm. ?S1 and S2 heard no murmurs. ?Radial pulses intact bilaterally MSK Hands: ?Able to make a fist. No synovitis noted to the MCPs, PIPs or DIPs. ?No tenderness to palpation of these joints. Few Herbeden's nodes Wrists: ?Full range of motion at the wrists without pain. ?No tenderness to palpation or synovitis noted to the wrists. Elbows: Full range of motion without pain. No tenderness, weakness, swelling, increased warmth or erythema. Shoulders: Full range of active range of motion without pain. No tenderness, weakness, swelling, increased warmth or erythema. Hip bursa: No tenderness to palpation Knees: ?Full range of motion. ?No tenderness, swelling, increased warmth or erythema.?No effusion or crepitations Ankles: Full range of motion. ?No tenderness, swelling, increased warmth or erythema.? Feet: ?Negative squeeze test. ?No tenderness to palpation or swelling of the MTPs. Tender points:?Tenderness to palpation of the bilateral trapezius, supraspinatus, greater trochanters, anterior costochondral junctions, bilateral gluteal areas, bilateral suboccipital muscle insertions SKIN Skin intact without rashes. Results Reviewed Results Reviewed: Laboratory Tests 12/05/24 04/01/25 04/01/25 08:48 09:01 09:04 WBC 7.5 RBC 4.57 Hgb 13.5 Hct 41.5 Plt Count 308 ESR 28 H 34 H Sodium 140 Potassium 4.2 Chloride 103 Carbon Dioxide 30 H BUN 20 H Creatinine 0.82 AST 21 ALT 13 Alkaline Phosphatase 97 C-Reactive Protein 1.00 H 1.09 H Rheumatology labs 10/23/18 08:35 Rheumatoid Factor < 15.0 Cycl Citrul Peptide IgG 38 H Infectious serologies 12/05/24 08:48 Hep Bs Antigen Negative Hep Bs Antibody NONREACTIVE Hep B Core Total Ab Nonreactive Hepatitis C Ab (EIA) Nonreactive TB Test (T-Spot) Com Negative Assessment & Plan Assessment & Plan (1) Rheumatoid arthritis: Comment: -ve RF + CCP Methotrexate: 10/2018-07/2019-p.o. and subcutaneous- GI upset Humira: 02/15/2020- present, intermittently compliant Code(s): M06.9 - Rheumatoid arthritis, unspecified Category: Medical Qualifiers: Rheumatoid arthritis location: multiple sites Rheumatoid factor presence: unspecified presence Qualified Code(s): M06.9 - Rheumatoid arthritis, unspecified Plan: #Seropositive rheumatoid arthritis Patient is a 64-year-old female with seropositive rheumatoid arthritis here today for follow up. Currently in remission on humira monotherapy with no evidence of synovitis. ESR is normal when adjusted for age and sex, CRP is also normal when adjusted for weight Plan - Humira 40mg SC every other week - RTC 6 months - Labs before visit: CBC, CMP, ESR, CRP (2) Fibromyalgia, primary: Code(s): M79.7 - Fibromyalgia Category: Medical Plan: #Fibromyalgia Patient with fibromylagia on cyclobenzaprine. 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 (current) use of immunosuppressive biologic Plan: #Long-term Use of TNF Inhibitors: Humira Discussed with the patient the benefits and risks of TNF inhibitors for the management of the rheumatic condition Benefits include reduce pain, maintenance of remission and reduction of flares as well as ?progression of the disease Risks include injection sites/infusion reactions, serious infections (such as bacterial infections, opportunistic infections), malignancy, delaminating syndromes, autoimmune phenomena, CHF exacerbations, palmar plantar psoriasis and cytopenias Recommended rotating injection sites, and holding medication during and for up to 1 week after resolution of a febrile illness or open skin wound Plan I spent 20 minutes reviewing the record and labs, taking a history, examining the patient, discussing the treatment plan, ordering diagnostic work up and documenting in the medical record Medications: Changed From Humira Pen (adalimumab) 40 mg (0.8 mL) subcut QWEEK 4 ea 0RF NS M06.9 - Rheumatoid arthritis, unspecified To Humira Pen (adalimumab) 40 mg (0.8 mL) subcut Q2W 2 ea 5RF NS M06.9 - Rheumatoid arthritis, unspecified Refilled cyclobenzaprine 10 mg PO TID PRN 90 tabs 1RF muscle spasm Coding Level of Care Code Est Pt Level 3 (46058) Complex EM visit Add On G2211 Diagnoses Rheumatoid arthritis involving multiple sites, unspecified whether rheumatoid factor present M06.9 Rheumatoid arthritis location: multiple sites Rheumatoid factor presence: unspecified presence Fibromyalgia, primary M79.7 Encounter for monitoring of adalimumab therapy Z51.81; Z79.620
[2025-04-25 09:56] VITALS: BP 115/70; PULSE 70; RESP 16; O2SAT 95; BMI 30.3
--- OUTSIDE RECORDS SUMMARY | 2025-04-25 09:59 | XMS_ITS | Clinical Summary ---
Author Organization [facility] it Address [address] [place] [address] Care Team Providers Care Solar Photovoltaic Installer Name Role Phone Unavailable Primary Care Provider Unavailabl e Surgical History Surgery Date Site/Laterality Comments OTHER SURGICAL HISTORY 1982 PROCEDURE: [place] BIOPSY VULVA/PERINEUM 1 LESION SPX TONSILLECTOMY PROCEDURE: HISTORICAL TONSILLECTOMY HYSTERECTOMY 1999 PROCEDURE: HISTORICAL HYSTERECTOMY; COMMENT: LAVH and [place] [facility] [place], for uterine prolapse and cystocoele [...] 3 Alive Brother 4 Alive Father unknown [place], hep atitis Maternal Grandfather Maternal Grandmother Mother [...]
== END 2025-04-25 10:36 | disposition home or self-care (01) ==
LOC: HO.RHE 09:42
PROVIDERS: PCP Internal Medicine; Visit Provider Student in an Organized Health Care Education/Training Program
DX: M06.9 Rheumatoid arthritis, unspecified (principal); M79.7 Fibromyalgia; Z51.81 Encounter for therapeutic drug level monitoring; Z79.620 Long term (current) use of immunosuppressive biologic
CPT/HCPCS: 99213; G2211

== ENCOUNTER → 2025-04-25 09:42 | Outpatient (BNVA) | payer OTHER, SELFPAY | PROVIDERS: PCP Internal Medicine; Visit Provider Student in an Organized Health Care Education/Training Program | DX: M06.9 Rheumatoid arthritis, unspecified (principal); M79.7 Fibromyalgia; Z51.81 Encounter for therapeutic drug level monitoring; Z79.620 Long term (current) use of immunosuppressive biologic | CPT/HCPCS: 99212 ==

== ENCOUNTER 2025-06-12 08:47 | Outpatient (REF) | payer OTHER, SELFPAY ==
--- OUTSIDE RECORDS SUMMARY | 2025-06-12 08:56 | XMS_ITS | Clinical Summary ---
Author Organization [facility] it Address [address] [place] [address] Care Team Providers Care Architectural Draftsman Name Role Phone Unavailable Primary Care Provider Unavailabl e Surgical History Surgery Date Site/Laterality Comments OTHER SURGICAL HISTORY 1982 PROCEDURE: [place] BIOPSY VULVA/PERINEUM 1 LESION SPX TONSILLECTOMY PROCEDURE: HISTORICAL TONSILLECTOMY HYSTERECTOMY 1999 PROCEDURE: HISTORICAL HYSTERECTOMY; COMMENT[place] [facility] [place], for uterine prolapse and cystocoele [...] 2023-2 5 season) 2024 Influenza Vaccine (#1) 2025 RSV Immunization Adult Patie nts (1 [...] 5 Years) and At-Risk Patients (6 to 49 Years) Aged Out No longer eligible b ased on patient's age to complete this topic RSV Immunization Patients Un corbin 20 months Aged Out No longer eligible b ased on patient's age to complete this topic Varicella Vaccines Aged Out No longer eligible based on patient's age to complete this topic
[2025-06-12 09:45] LABS: Cholesterol 195 mg/dL (<200); HDL Cholesterol 55 mg/dL (>40); Triglycerides 83 mg/dL (<150)
== END 2025-06-12 08:48 | disposition home or self-care (01) ==
LOC: HO.LAB 08:47
PROVIDERS: PCP Internal Medicine; Visit Provider Internal Medicine
DX: E78.5 Hyperlipidemia, unspecified (principal)
CPT/HCPCS: 36415; 80061

== ENCOUNTER 2025-06-27 09:35 | Outpatient (AMB) | payer OTHER, SELFPAY ==
--- NOTE | 2025-06-27 09:49 | HO.NEPHOV ---
Vital Signs 06/27/25 09:52 Height 5 ft 2 in Weight 155 lb 6 oz BMI 28.4 BP 122/60 Blood Pressure Location Lt brachial Position Sitting Pulse 60 Pulse Source Pulse Oximeter Pulse Oximetry (%) 98 Oxygen Delivery Method Room Air Intake Visit Reasons: 2mon [id number] Printed Products Assembler Required: No Accompanied by: Self / Same As Patient Allergies ciprofloxacin Allergy (Severe, Verified 06/27/25 09:51) Joint Pain naproxen (NAPROXEN) Allergy (Severe, Verified 06/27/25 09:51) STOMACH BLEED, bleeding, bleeding nitrofurantoin Allergy (Severe, Verified 06/27/25 09:51) Rash meloxicam (MELOXICAM) Allergy (Intermediate, Verified 06/27/25 09:51) RASH, hives prednisone (PREDNISONE) Allergy (Intermediate, Verified 06/27/25 09:51) SWELLING pregabalin (From LYRICA) Allergy (Intermediate, Verified 06/27/25 09:51) SHORTNESS OF BREATH Sulfa (Sulfonamide Antibiotics) Allergy (Intermediate, Verified 06/27/25 09:51) hives trimethoprim (From BACTRIM) Allergy (Intermediate, Verified 06/27/25 09:51) RASH oxycodone (From PERCOCET) Allergy (Mild, Verified 06/27/25 09:51) RASH Penicillins (PENICILLINS) Allergy (Mild, Verified 06/27/25 09:51) RASH Tramadol Allergy (Mild, Uncoded 12/13/24 10:34) Itching HPI Comments Details: I had the pleasure of seeing Paz for an incidental finding of mild proteinuria. She has history of left renal cyst. She has no microscopic hematuria, hearing deficits, renal dysfunction, pedal edema, frothy or foamy urine. She does not take any excessive nonsteroidal anti-inflammatories. She has no joint swelling, photosensitivity, skin rashes, epistaxis, diabetes, CVA, CAD, CHF, carotid stenosis, renal calculi, paraproteinemia, PAD. Her renal functions are normal. Her blood pressure has been at goal. 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 GERD (gastroesophageal reflux disease) Migraines Surgical History Hx of hysterectomy History of total abdominal hysterectomy Family History Father Hypertension CVD (cardiovascular disease) Mother Hypertension Diabetes Cancer Paternal Grandmother Cancer Brother Colon cancer Social History Housing: Apartment Alcohol intake: current Alcohol intake frequency: does not drink Alcohol type: wine Patient Tobacco Use Status: Never used Tobacco e-Cigarette/Vaping Use: Never Used Second Hand Smoke Exposure: No service: No Current occupational status: unemployed Cognitive needs: No Hearing needs: No Vision needs: Yes (glasses ) Review of Systems Const All systems reviewed & are unremarkable except as noted in HPI and below Physical Exam Vital Signs: Last Vital Signs Pulse 60 06/27/25 09:52 BP 122/60 06/27/25 09:52 Pulse Ox 98 06/27/25 09:52 Oxygen Delivery Method Room Air 06/27/25 09:52 BMI result Body Mass Index 28.4 Const General: comfortable and no acute distress Orientation/consciousness: patient oriented x3 HEENT Head: Yes normocephalic Mouth: Normal oral and palatal mucosa present Eyes EOM: EOMs intact bilaterally Neck Neck: Yes supple Resp Auscultation: clear to auscultation bilaterally Cardio Jugular venous distension: no JVD Rate: regular rate GI Palpation (GI): Soft to palpation Auscultation: normal bowel sounds General: Yes no CVA tenderness Back/Spine/Pelvis Back: no CVA tenderness Skin General skin exam: no rashes or lesions noted Neuro General: patient oriented x3 and moves all extremities Extrem General: Yes no pedal edema Results Reviewed Nephrology Results: Hgb, (12.0-16.0) 13.5 g/dl 04/01/25 WBC, (4.8-10.8) 7.5 X10*3/uL 04/01/25 Plt Count, (160-400) 308 X10*3/uL 04/01/25 Sodium, (135-145) 140 mmol/L 04/01/25 Potassium, (3.3-5.1) 4.2 mmol/L 04/01/25 Chloride, (96-108) 103 mmol/L 04/01/25 Carbon Dioxide, (22-29) 30 mmol/L H 04/01/25 BUN, (9-16) 20 mg/dL H 04/01/25 Creatinine, (0.5-1.4) 0.82 mg/dL 04/01/25 Calcium, (8.4-10.2) 9.6 mg/dL Δ 04/01/25 Renal US 11/12/22 Assessment & Plan Assessment & Plan (1) Renal cyst: Code(s): N28.1 - Cyst of kidney, acquired Category: Medical (2) Proteinuria: Code(s): R80.9 - Proteinuria, unspecified Category: Medical Qualifiers: Proteinuria type: other Qualified Code(s): R80.8 - Other proteinuria Plan Paz had an incidental finding of mild proteinuria. She has no history of hematuria. Her renal functions are normal. Her blood pressure has been at goal. She is not a diabetic. She also has history of left renal cyst. I shall do a follow up USS next year. She has no flank pain, night sweats, weight loss. She has no history of malignancy. 24 hour urine for protein was negative. If she has significant proteinuria I will initiate her on ARB and investigate further in detail. She was asked to maintain good hydration and minimize nonsteroidal anti-inflammatories in excess. I did not make any medication changes today. All these have been explained in detail. Answered all questions and follow-up was given. Orders: Orders Protein Creatinine Ratio, Ur 8 Months N28.1 - Cyst of kidney, acquired, R80.8 - Other proteinuria Creatinine 8 Months N28.1 - Cyst of kidney, acquired, R80.8 - Other proteinuria Blood Urea Nitrogen 8 Months N28.1 - Cyst of kidney, acquired, R80.8 - Other proteinuria Electrolytes 8 Months N28.1 - Cyst of kidney, acquired, R80.8 - Other proteinuria UA and rflx microscopic 8 Months N28.1 - Cyst of kidney, acquired, R80.8 - Other proteinuria Coding Level of Care Code Est Pt Level 4 (75889) Diagnoses Renal cyst N28.1 Other proteinuria R80.8 Proteinuria type: other
[2025-06-27 09:52] VITALS: BP 122/60; PULSE 60; O2SAT 98; BMI 28.4
--- OUTSIDE RECORDS SUMMARY | 2025-06-27 09:58 | XMS_ITS | Clinical Summary ---
Author Organization [facility] it Address [address] [place] [address] Care Team Providers Care Auxiliary Equipment Operator Name Role Phone Unavailable Primary Care Provider Unavailabl e Surgical History Surgery Date Site/Laterality Comments OTHER SURGICAL HISTORY 1982 PROCEDURE: [place] BIOPSY VULVA/PERINEUM 1 LESION SPX TONSILLECTOMY PROCEDURE: HISTORICAL TONSILLECTOMY HYSTERECTOMY 1999 PROCEDURE: HISTORICAL HYSTERECTOMY; COMMENT: LAVH and anterior repair at [facility], Dr. Hatfield, for uterine prolapse and cystocoele [...] 3 Alive Brother 4 Alive Father unknown [place], hep atitis Maternal Grandfather Maternal Grandmother Mother [...] Vaccine (1 - 2023-2 5 season) 2024 Depression Screening 11/28/2024 Influenza Vaccine (#1) 2025 RSV Immunization Adult [...]
== END 2025-06-27 10:20 | disposition home or self-care (01) ==
LOC: HO.HKAS 09:36
PROVIDERS: PCP Internal Medicine; Visit Provider Internal Medicine Nephrology
DX: N28.1 Cyst of kidney, acquired (principal); R80.8 Other proteinuria
CPT/HCPCS: 99214

== ENCOUNTER → 2025-06-27 09:35 | Outpatient (BNVA) | payer OTHER, SELFPAY | PROVIDERS: PCP Internal Medicine; Visit Provider Internal Medicine Nephrology | DX: N28.1 Cyst of kidney, acquired (principal); R80.8 Other proteinuria | CPT/HCPCS: 99212 ==

== ENCOUNTER 2025-08-05 10:24 | Outpatient (REF) | payer OTHER, SELFPAY ==
[2025-08-05 10:35] LABS: MANUAL DIFF FLAG NO
[2025-08-05 10:42] LABS: Hematocrit 43.2 % (37.0-47.0); Hemoglobin 14.3 g/dl (12.0-16.0); Imm Gran Abs Auto 0.04 X10*3/uL (0.00-0.03); Imm Gran Pct Auto 0.5 % (0.0-0.4); Lymphocytes Absolute Auto 1.6 X10*3/uL (1.2-4.9); Mean Corpuscular HGB Conc 33.1 g/dl (31.0-35.0); Mean Corpuscular Hemoglobin 30.2 pg (27.0-33.0); Mean Corpuscular Volume 91.3 fL (80.0-98.0); NRBC Abs Auto 0.000 X10*3/uL (0.0-0.012); NRBC Pct Auto 0.0 /100WBC (0.0-0.2); Platelet Count 313 X10*3/uL (160-400); Red Blood Count 4.73 X10*6/uL (4.20-5.50); White Blood Count 8.8 X10*3/uL (4.8-10.8)
[2025-08-05 12:09] LABS: Alanine Aminotransferase 15 U/L (0-31); Albumin Level 4.4 g/dL (3.5-5.0); Alkaline Phosphatase 96 U/L (39-117); Anion Gap 13 (12-20); Aspartate Amino Transferase 27 U/L (5-31); Blood Urea Nitrogen 12 mg/dL (9-16); Calcium 9.8 mg/dL (8.4-10.2); Carbon Dioxide 28 mmol/L (22-29); Chloride 107 mmol/L (96-108); Estimated Glomerular Filt Rate > 60; Potassium 4.5 mmol/L (3.3-5.1); Sodium 143 mmol/L (135-145); Total Protein 8.2 g/dL (6.5-8.0)
--- OUTSIDE RECORDS SUMMARY | 2025-08-05 12:22 | XMS_ITS | Clinical Summary ---
Author Organization [facility] it Address [address] [place] [address] Care Team Providers Care Spring Tacker Name Role Phone Unavailable Primary Care Provider Unavailabl e Surgical History Surgery Date Site/Laterality Comments OTHER SURGICAL HISTORY 1982 PROCEDURE: [place] BIOPSY VULVA/PERINEUM 1 LESION SPX TONSILLECTOMY PROCEDURE: HISTORICAL TONSILLECTOMY HYSTERECTOMY 1999 PROCEDURE: HISTORICAL HYSTERECTOMY; COMMENT: LAVH and anterior repair at [facility], Dr. Hatfield, for uterine prolapse and cystocoele [...] 3 Alive Brother 4 Alive Father unknown [place], hep atitis Maternal Grandfather Maternal Grandmother Mother [...] 2010 Zoster Vaccines (1 of 2) 2010 Depression Screening 11/28/2024 COVID-19 Vaccine (1 - 2023-2 5 season) 2025 Influenza Vaccine (#1) 2025 RSV Immunization Adult [...]
== END 2025-08-05 10:25 | disposition home or self-care (01) ==
LOC: HO.LAB 10:24
PROVIDERS: PCP Internal Medicine; Visit Provider Internal Medicine
DX: K21.9 Gastro-esophageal reflux disease without esophagitis (principal); D64.9 Anemia, unspecified
CPT/HCPCS: 36415; 80053; 85025

== ENCOUNTER 2025-08-08 09:01 | Outpatient (AMB) | payer OTHER, SELFPAY ==
--- NOTE | 2025-08-08 09:18 | MHC.OFFVIS ---
Vital Signs 08/08/25 09:19 Height 5 ft 2 in Weight 148 lb 9.465 oz BMI 27.2 BP 100/62 Blood Pressure Location Lt brachial Position Sitting Pulse 47 L Pulse Source Monitor Intake Visit Reasons: 1 year follow up Regional Rehabilitation Director Required: No Allergies ciprofloxacin Allergy (Severe, Verified 08/08/25 09:20) Joint Pain naproxen (NAPROXEN) Allergy (Severe, Verified 08/08/25 09:20) STOMACH BLEED, bleeding, bleeding nitrofurantoin Allergy (Severe, Verified 08/08/25 09:20) Rash meloxicam (MELOXICAM) Allergy (Intermediate, Verified 08/08/25 09:20) RASH, hives prednisone (PREDNISONE) Allergy (Intermediate, Verified 08/08/25 09:20) SWELLING pregabalin (From LYRICA) Allergy (Intermediate, Verified 08/08/25 09:20) SHORTNESS OF BREATH Sulfa (Sulfonamide Antibiotics) Allergy (Intermediate, Verified 08/08/25 09:20) hives trimethoprim (From BACTRIM) Allergy (Intermediate, Verified 08/08/25 09:20) RASH oxycodone (From PERCOCET) Allergy (Mild, Verified 08/08/25 09:20) RASH Penicillins (PENICILLINS) Allergy (Mild, Verified 08/08/25 09:20) RASH Tramadol Allergy (Mild, Uncoded 08/08/25 09:20) Itching Medication List - Last Reconciled 08/08/25 by Yanci Zuniga SAND MILL OPERATOR CORE SANDNataliya acetaminophen (Tylenol Extra Strength) 500 mg PO Q6H PRN 30 days bwbihdpvru-frbslbmbtrxuy-urfw 50-325-40 mg 1 tab PO Q6H PRN 30 days cyclobenzaprine 10 mg PO TID PRN epinephrine 0.3 mg (0.3 mL) IM Q10M PRN estradiol 0.01%(0.1mg/gram) (Estrace) pea sized amount per urethra QHS; 30 days Humira Pen (adalimumab) 40 mg (0.8 mL) subcut Q2W NS [Regular back brace wear as needed] Shower Chair Shower chair size small HPI HPI 1 year follow up: Details: Jacinta is a 64-year-old female with past medical history of hyperlipidemia, GERD, atypical chest discomfort, atrial septal aneurysm/PFO who presents for follow-up. Today she reports that she has been feeling well with no concerning symptoms. No chest discomfort at rest or with activity. No palpitations, lightheadedness, presyncope, syncope. No shortness of breath, PND, orthopnea or edema. Compliant with meds. Leaving on 08/16/2025 for [place] and plans to stay for many months. 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 GERD (gastroesophageal reflux disease) Migraines Surgical History Hx of hysterectomy History of total abdominal hysterectomy Family History Father Hypertension CVD (cardiovascular disease) Mother Hypertension Diabetes Cancer Paternal Grandmother Cancer Brother Colon cancer Social History Housing: Apartment Alcohol intake: current Alcohol intake frequency: does not drink Alcohol type: wine Patient Tobacco Use Status: Never used Tobacco e-Cigarette/Vaping Use: Never Used Second Hand Smoke Exposure: No service: No Current occupational status: unemployed Cognitive needs: No Hearing needs: No Vision needs: Yes (glasses ) Review of Systems Const All systems reviewed & are unremarkable except as noted in HPI and below ENT Denies dizziness Card Denies chest pain, Denies chest pain at rest, Denies chest pain with activity, Denies rapid heart rate, Denies pedal edema, Denies edema, Denies leg edema, Denies lightheadedness, Denies palpitations, Denies dyspnea, Denies dyspnea on exertion and Denies orthopnea Resp Denies cough, Denies dyspnea and Denies dyspnea on exertion GI Denies hematochezia and Denies change in stool character Musc Denies abnormal gait, Denies limited range of motion, Denies muscle cramps, Denies muscle weakness, Denies numbness, Denies radiating pain into limb, Denies stiffness and Denies tingling Neuro Denies abnormal gait, Denies dizziness, Denies numbness and Denies tingling Endo Denies palpitations Physical Exam Vital Signs: Last Vital Signs Pulse 47 L 08/08/25 09:19 BP 100/62 08/08/25 09:19 BMI result Body Mass Index 27.2 Const General: cooperative, healthy appearing, comfortable and no acute distress Orientation/consciousness: patient oriented x3 Neck Neck: Yes normal visual inspection Resp Effort & Inspection: normal respiratory effort Auscultation: clear to auscultation bilaterally, no crackles, no rales, no rhonchi and no wheezes Cardio Rate: regular rate Rhythm: regular rhythm Heart sounds: S1 normal heart sound present, S2 normal heart sound present, no gallops, no murmurs and no rubs Skin General skin exam: no rashes or lesions noted Neuro General: patient oriented x3 Extrem General: Yes normal to inspection, No no pedal edema and No calf tenderness Psych Appearance: grossly normal Mental Status: mental status grossly normal Speech and movement: Normal speech and movement present Office Procedures EKG Details: Today, read by me, sinus bradycardia, rate 47, QTC 401 millisecond [id number], Complete Assessment & Plan Assessment & Plan (1) Sinus bradycardia: Code(s): R00.1 - Bradycardia, unspecified Category: Medical Plan: EKG last visit did show sinus bradycardia. EKG done today showing sinus bradycardia, rate 47, asymptomatic. I had her ambulate in the pena and heart rate quickly ross to 59. Will check Holter monitor to ensure no significant bradycardia, heart blocks or pauses. Plan to call her with results. Cardiology follow-up 1 year, sooner if needed. (2) Chest pain: Code(s): R07.9 - Chest pain, unspecified Category: Medical Qualifiers: Chest pain type: precordial pain Qualified Code(s): R07.2 - Precordial pain Plan: Prior reports of atypical chest discomfort with negative cardiac workup. She does have cardiac risk factors of age and hyperlipidemia. Prior echo 09/22/2021 showed EF 65-70%. EKGs nonischemic. Stress echocardiogram on 06/22/2024 with exercise 8 minutes, EKG changes which were thought to be nonspecific and echo showing no evidence of ischemia, diastolic dysfunction or pulmonary hypertension. Her symptoms were thought to be musculoskeletal in nature. Signs and symptoms of true angina reviewed with her. Continue risk factor modification. (3) PFO with atrial septal aneurysm: Code(s): Q21.1 - Atrial septal defect Category: Medical Plan: History of septal aneurysm/PFO. Last echo 09/22/2021 shows EF 65-70%, mobile atrial septum, bubble study mildly positive during Valsalva. Aspirin was previously recommended however she states she is not able to take as she is on Humira. Plan I discussed with the patient the findings of sinus bradycardia on the EKG and the plan to use a Holter monitor to further assess her heart rate. We talked about the scheduling process for the monitor and the importance of monitoring her heart rate. Orders: Orders ECG 3 day holter monitor Today R00.1 - Bradycardia, unspecified Patient Instructions: - Continue regular physical activity such as walking and dancing. - Await contact from centralized scheduling for Holter monitor placement. - Report any new symptoms such as chest pain or dizziness immediately. Patient was informed and verbally consented to the use of an ambient scribe for clinic note documentation during this visit. Visit time spent on chart review, interview, assessment, orders, documentation. Coding Level of Care Code Est Pt Level 4 (00708) Complex EM visit Add On G2211 Diagnoses Sinus bradycardia R00.1 Precordial pain R07.2 Chest pain type: precordial pain PFO with atrial septal aneurysm Q21.1 CPT Codes EKG - CPT: 79753-[id number], Complete ([id number]) Time Spent (min) 28
[2025-08-08 09:19] VITALS: BP 100/62; PULSE 47; BMI 27.2
--- OUTSIDE RECORDS SUMMARY | 2025-08-08 10:18 | XMS_ITS | Clinical Summary ---
Author Organization [facility] it Address [address] [place] [address] Care Team Providers Care Automotive Design Layout Drafter Name Role Phone Unavailable Primary Care Provider Unavailabl e Surgical History Surgery Date Site/Laterality Comments OTHER SURGICAL HISTORY 1982 PROCEDURE: [place] BIOPSY VULVA/PERINEUM 1 LESION SPX TONSILLECTOMY PROCEDURE: HISTORICAL TONSILLECTOMY HYSTERECTOMY 1999 PROCEDURE: HISTORICAL HYSTERECTOMY; COMMENT: LAVH and anterior repair at [facility] [place], Dr. Hatfield, for uterine prolapse and cystocoele [...] 3 Alive Brother 4 Alive Father unknown [place], hep atitis Maternal Grandfather Maternal Grandmother Mother [...]
== END 2025-08-08 10:09 | disposition home or self-care (01) ==
LOC: HO.HCS 09:02
PROVIDERS: PCP Internal Medicine; Visit Provider Nurse Practitioner Family
DX: R00.1 Bradycardia, unspecified (principal); R07.2 Precordial pain; Q21.10 Atrial septal defect, unspecified
CPT/HCPCS: 93010; 99214

== ENCOUNTER → 2025-08-08 09:01 | Outpatient (BNVA) | payer OTHER, SELFPAY | PROVIDERS: PCP Internal Medicine; Visit Provider Nurse Practitioner Family | DX: R07.2 Precordial pain (principal); R00.1 Bradycardia, unspecified | CPT/HCPCS: 93005; 99212 ==

== ENCOUNTER → 2025-08-12 13:19 | Outpatient (REF) | payer OTHER, SELFPAY ==
--- NOTE | 2025-08-12 13:29 | HM_ITS ---
* Total monitoring time 2 days. * Underlying rhythm is sinus with an average rate of 59/Min. About 56% of the time, rate < 60/Min. * Rare supraventricular ectopy. Very brief runs. * Rare ventricular ectopy. * No significant pauses or high-grade AV blocks. * Patient markers used with sinus rhythm. * Symptoms in patient diary including exertion, stressful, tired associated with sinus rhythm. MTDD
--- OUTSIDE RECORDS SUMMARY | 2025-08-12 18:28 | XMS_ITS | Clinical Summary ---
Author Organization [facility] it Address [address] [place] [address] Care Team Providers Care Boat And Plant Utility Supervisor Name Role Phone Unavailable Primary Care Provider Unavailabl e Surgical History Surgery Date Site/Laterality Comments OTHER SURGICAL HISTORY 1982 PROCEDURE: [place] BIOPSY VULVA/PERINEUM 1 LESION SPX TONSILLECTOMY PROCEDURE: HISTORICAL TONSILLECTOMY HYSTERECTOMY 1999 PROCEDURE: HISTORICAL HYSTERECTOMY; COMMENT: LAVH and anterior repair at [facility] [place], Dr. Hatfield, for uterine prolapse and cystocoele [...]
== END ==
LOC: HO.CARD 13:19
PROVIDERS: PCP Internal Medicine; Visit Provider Nurse Practitioner Family
DX: R00.1 Bradycardia, unspecified (principal)
CPT/HCPCS: 93225

== ENCOUNTER → 2025-08-12 13:29 | Outpatient (BNV) | payer OTHER, SELFPAY | PROVIDERS: PCP Internal Medicine; Visit Provider Internal Medicine | DX: I49.49 Other premature depolarization (principal); I49.3 Ventricular premature depolarization | CPT/HCPCS: 93227 ==

== ENCOUNTER 2025-08-14 15:37 | Outpatient (AMB) | payer OTHER, SELFPAY ==
[2025-08-14 15:40] VITALS: BP 116/72; PULSE 55; O2SAT 98; BMI 26.9
--- NOTE | 2025-08-14 15:40 | A.OFFPC_ITS ---
Vital Signs 08/14/25 15:40 Height 5 ft 2 in Weight 147 lb BMI 26.9 BP 116/72 Blood Pressure Location Lt brachial Position Sitting Pulse 55 Pulse Source Pulse Oximeter Pulse Oximetry (%) 98 Oxygen Delivery Method Room Air Intake Visit Reasons: pain Veterinarian Assistant Required: No Accompanied by: Self / Same As Patient Allergies ciprofloxacin Allergy (Severe, Verified 08/14/25 16:28) Joint Pain naproxen (NAPROXEN) Allergy (Severe, Verified 08/14/25 16:28) STOMACH BLEED, bleeding, bleeding nitrofurantoin Allergy (Severe, Verified 08/14/25 16:28) Rash meloxicam (MELOXICAM) Allergy (Intermediate, Verified 08/14/25 16:28) RASH, hives prednisone (PREDNISONE) Allergy (Intermediate, Verified 08/14/25 16:28) SWELLING pregabalin (From LYRICA) Allergy (Intermediate, Verified 08/14/25 16:28) SHORTNESS OF BREATH Sulfa (Sulfonamide Antibiotics) Allergy (Intermediate, Verified 08/14/25 16:28) hives trimethoprim (From BACTRIM) Allergy (Intermediate, Verified 08/14/25 16:28) RASH oxycodone (From PERCOCET) Allergy (Mild, Verified 08/14/25 16:28) RASH Penicillins (PENICILLINS) Allergy (Mild, Verified 08/14/25 16:28) RASH Tramadol Allergy (Mild, Uncoded 08/14/25 16:28) Itching Medication List - Last Reconciled 08/14/25 by Paz Walters MD acetaminophen (Tylenol Extra Strength) 500 mg PO Q6H PRN 30 days aadscovzkc-ffhmxuzjrqjnu-inrc 50-325-40 mg 1 tab PO Q6H PRN 30 days cyclobenzaprine 10 mg PO TID PRN epinephrine 0.3 mg (0.3 mL) IM Q10M PRN estradiol 0.01%(0.1mg/gram) (Estrace) pea sized amount per urethra QHS; 30 days Humira Pen (adalimumab) 40 mg (0.8 mL) subcut Q2W NS [Regular back brace wear as needed] Shower Chair Shower chair size small Tobacco use date assessed: 08/14/25 Fall risk assessment: No Falls in past year Last assessed Fall Risk: 08/14/25 Dental Screening Dental Screen Date: 08/14/25 Did you have a dental visit in the last 12 months?: Yes Did you have a dental problem in the last 6 months where you did not have access to dental care?: No Was dental information given to patient?: Patient has dentist HPI HPI Comments History of Present Illness Details The patient is a 64-year-old female presenting with a follow-up visit. She has a history of osteoporosis, identified through bone density testing, and this condition is being monitored regularly. The patient also has rheumatoid arthritis, managed with Humira, and reports stability with the current treatment regimen. Additionally, she experiences migraines, for which she is on medication. She has Arnold-Chiari malformation type 1 follow by Neurology. Denies any acute symptoms regarding this matter. 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 GERD (gastroesophageal reflux disease) Migraines Surgical History Hx of hysterectomy History of total abdominal hysterectomy Family History Father Hypertension CVD (cardiovascular disease) Mother Hypertension Diabetes Cancer Paternal Grandmother Cancer Brother Colon cancer Social History Housing: Apartment Alcohol intake: current Alcohol intake frequency: holidays/special occasions only Alcohol type: wine Patient Tobacco Use Status: Never used Tobacco e-Cigarette/Vaping Use: Never Used Second Hand Smoke Exposure: No service: No Current occupational status: unemployed Cognitive needs: No Hearing needs: No Vision needs: Yes (glasses ) Questionnaire PHQ-9 Over the last 2 weeks, how often have you been bothered by any of the following problems? 1. Little interest or pleasure in doing things: not at all 2. Feeling down, depressed, or hopeless: not at all 3. Trouble falling or staying asleep, or sleeping too much: not at all 4. Feeling tired or having little energy: not at all 5. Poor appetite or overeating: not at all 6. Feeling bad about yourself - or that you are a failure or have let yourself or your family down: not at all 7. Trouble concentrating on things, such as reading the newspaper or watching television: not at all 8. Moving or speaking so slowly that other people could have noticed. Or the opposite - being so fidgety or restless that you have been moving around a lot more than usual: not at all 9. Thoughts that you would be better off or of hurting yourself in some w ay: not at all Total score: 0 Depression Screening Interpretation: Negative Depression Screening Done: Yes 08357 - PHQ-9 Billing: Yes Source: Developed by Drs. Red Arce, Julianna Woodard, Pablo Powers and colleagues, with an educational elvia from [employer]. Thrive Questionnaire Date Thrive assessed: 12/12/24 I am a: Patient What is your living situation today?: I have a steady place to live Within the past 12 months, did the food you bought not last and you didn't have the money to get more?: I choose not to answer this question Within the past 12 months, did you worry whether your food would run out before you got money to buy more?: Never true Do you have trouble paying for medicines?: No Do you have trouble getting transportation to medical appointments?: No Do you have trouble paying your heating and electricity bill?: No Do you have trouble taking care of your child, family member or friend?: No Do you have trouble with day-to-day activities such as bathing, preparing meals, shopping, managing finances, etc.?: No Are you currently unemployed and looking for a job?: No Are you interested in more education?: No Please select the resources that you would like help with: None Currently or been in a relationship where the following occur: I choose not to answer THRIVE Score: 0 AUDIT C Alcohol Use Questionnaire (AUDIT-C) 1. How often do you have a drink containing alcohol?: Never 3. How often do you have six or more drinks on one occasion?: Never Total Score: 0 Score Reviewed/Action Taken: No NISH-7 AMB Questionnaire NISH-7 Date NISH - 7 assessed: 12/12/24 Feeling nervous, anxious, or on edge: 1 = Several days Not being able to stop or control worryin = Several days Worrying too much about different things: 1 = Several days Trouble relaxin = Not at all Being so restless that it is hard to sit still: 0 = Not at all Becoming easily annoyed or irritable: 0 = Not at all Feeling afraid as if something awful might happen: 0 = Not at all Total NISH-7 score (0-4 normal; 5-9 mild; 10-14 moderate; 15-21 severe): 3 Source: Developed by Drs. Red Arce, Julianna Woodard, Pablo Powers and colleagues, with an educational elvia from [employer]. NISH-7 Assessment Billing NISH-7 Assessment Tool: NISH-7 Assessment 82388 Review of Systems Const All systems reviewed & are unremarkable except as noted in HPI and below Card Denies chest pain at rest, Denies chest pain with activity, Denies edema, Denies irregular heart rhythm, Denies claudication, Denies dyspnea, Denies dyspnea on exertion, Denies orthopnea, Denies paroxysmal nocturnal dyspnea and Denies slow heart rate Resp Denies cough, Denies dyspnea and Denies dyspnea on exertion Physical exam (Primary Care) Vital Signs: Last Vital Signs Pulse 55 08/14/25 15:40 BP 116/72 08/14/25 15:40 Pulse Ox 98 08/14/25 15:40 Oxygen Delivery Method Room Air 08/14/25 15:40 BMI result Body Mass Index 26.9 Tobacco/Smoking Status: Tobacco use Status Tobacco use date assessed 08/14/25 08/14/25 15:41 Patient Tobacco Use Status Never used Tobacco 08/14/25 15:41 e-Cigarette/Vaping Use Never Used 08/14/25 15:41 PHQ-9: PHQ-9 Score PHQ-9: Total score 0 08/14/25 15:41 Depression Screening Interpretation: Negative Thrive Assessment: Date of Thrive Assessment Date Thrive assessed 12/12/24 08/14/25 15:41 Currently or been in a relationship where the following occur: I choose not to answer Resp Effort & Inspection: normal respiratory effort Auscultation: clear to auscultation bilaterally Cardio Jugular venous distension: no JVD Rate: regular rate Rhythm: regular rhythm Heart sounds: S1 normal heart sound present and S2 normal heart sound present Extrem General: Yes full ROM Coding Level of Care Code Est Pt Level 4 (49885) Complex EM visit Add On G2211 Diagnoses Rheumatoid arthritis involving multiple sites, unspecified whether rheumatoid factor present M06.9 Rheumatoid arthritis location: multiple sites Rheumatoid factor presence: unspecified presence Migraine without aura and without status migrainosus, not intractable G43.009 Migraine type: without aura Status migrainosus presence: without status migrainosus Intractability: not intractable Osteoporosis M81.0 Arnold-Chiari malformation Q07.00 Additional Codes PHQ-9 - 22479 - PHQ-9 Billing: Yes ([id number]) NISH-7 Assessment Billing - NISH-7 Assessment Tool: NISH-7 Assessment 13584 ([id number]) Time Spent (min) 20 Assessment & Plan Assessment & Plan (1) Rheumatoid arthritis: Comment: -ve RF + CCP Methotrexate: 10/2018-07/2019-p.o. and subcutaneous- GI upset Humira: 02/15/2020- present, intermittently compliant Code(s): M06.9 - Rheumatoid arthritis, unspecified Category: Medical Qualifiers: Rheumatoid arthritis location: multiple sites Rheumatoid factor presence: unspecified presence Qualified Code(s): M06.9 - Rheumatoid arthritis, unspecified (2) Migraines: Code(s): G43.909 - Migraine, unspecified, not intractable, without status migrainosus Category: Medical Qualifiers: Migraine type: without aura Status migrainosus presence: without status migrainosus Intractability: not intractable Qualified Code(s): G43.009 - Migraine without aura, not intractable, without status migrainosus (3) Osteoporosis: Code(s): M81.0 - Age-related osteoporosis without current pathological fracture Category: Medical (4) Arnold-Chiari malformation: Comment: Follows with neurology Dr Link Code(s): Q07.00 - Arnold-Chiari syndrome without spina bifida or hydrocephalus Category: Medical Plan Plan Patient was informed and verbally consented to the use of an ambient scribe for clinic note documentation during this visit. 1. Osteoporosis The patient has osteoporosis, which is being monitored through regular bone density tests. 2. Rheumatoid Arthritis Rheumatoid arthritis is being managed with Humira, and the patient reports st ability with this treatment. 3. Migraines The patient experiences migraines and is on medication for management. 4. Arnold-Chiari malformation type 1 Follow-up with neurology. Orders: Orders Lipid Panel 4 Months E78.5 - Hyperlipidemia, unspecified Vitamin D 25-OH Total 4 Months E55.9 - Vitamin D deficiency, unspecified Comprehensive [place]. Panel Fast 4 Months M06.9 - Rheumatoid arthritis, unspecified
== END 2025-08-14 16:39 | disposition home or self-care (01) ==
LOC: HO.HMCH 15:38
PROVIDERS: PCP Internal Medicine; Visit Provider Internal Medicine
DX: M06.9 Rheumatoid arthritis, unspecified (principal); G43.009 Migraine without aura, not intractable, without status migrainosus; M81.0 Age-related osteoporosis without current pathological fracture; Q07.00 Arnold-Chiari syndrome without spina bifida or hydrocephalus

== ENCOUNTER → 2025-08-14 15:37 | Outpatient (BNVA) | payer OTHER, SELFPAY | PROVIDERS: PCP Internal Medicine; Visit Provider Internal Medicine | DX: M81.0 Age-related osteoporosis without current pathological fracture (principal); M06.9 Rheumatoid arthritis, unspecified; G43.009 Migraine without aura, not intractable, without status migrainosus; Q07.00 Arnold-Chiari syndrome without spina bifida or hydrocephalus; E55.9 Vitamin D deficiency, unspecified; E78.5 Hyperlipidemia, unspecified | CPT/HCPCS: 96127; 99212 ==